=== PATIENT | male | born 1950 | race Caucasian/White ===

== ENCOUNTER 2017-02-25 13:16 | Emergency (ER) | payer OTHER ==
[~2017-02-25] VITALS: Ht 180.3 cm; Wt 62.2 kg
[2017-02-25 13:27] VITALS: TEMP 36.9; Ht 180.3 cm; Wt 62.2 kg
[2017-02-25] MEDS ORDERED: ALBUT/IPRATROP 3MG/0.5MG NEB 3 ML VIAL INH STA (13:58)
[2017-02-25 14:14] LABS: BASO % 0.5 %; BASO ABS # 0.06 K/uL (0-0.2); COMPLETE YES; EOS % 0.1 %; HEMATOCRIT 43.1 % (42-52); IG% 0.2 %; LYMPH % 4.9 %; LYMPH ABS # 0.61 K/uL (1.2-3.4); MEAN CELL VOLUME 88.9 fL (80-100); MEAN CORPUSCULAR HEMOGLOBIN 29.3 pg (25-34); MEAN CORPUSCULAR HGB CONC 32.9 g/dl (32-36); MEAN PLATELET VOLUME 9.2 fL (7.4-10.4); MONO % 5.3 %; PLATELET COUNT 218 K/uL (130-400); RED BLOOD COUNT 4.85 M/uL (4.7-6.1); WHITE BLOOD COUNT 12.57 K/uL (4.8-10.8)
--- NOTE | 2017-02-25 14:30 | DIAGNOSTIC IMAGING REPORT ---
TWO VIEW CHEST CLINICAL HISTORY: Cough and wheezing. Dyspnea. FINDINGS: PA and lateral chest radiographs are compared obtained. No prior studies are available for comparison at the time of dictation. The heart is mildly enlarged and there is atherosclerotic calcification of the thoracic aorta. The pulmonary vasculature is noncongested. Advanced emphysema and interstitial thickening are identified. No airspace consolidation or pleural effusion is seen. An ill-defined nodular density projects over the right apex. Biapical scarring is observed. There is no pneumothorax. The skeletal structures are osteopenic. Degenerative change is present throughout the thoracic spine. IMPRESSION: 1. Cardiomegaly and advanced emphysema. There is no acute cardiopulmonary abnormality. 2. A nodular density projects over the right apex. Although this may represent scar versus artifact, correlation with a chest CT is recommended to exclude underlying pulmonary neoplasm. Electronically signed by: Yaya Kaur M.D. 02/25/2017 2:29 PM Dictated Date/Time: 02/25/2017 2:27 PM
[2017-02-25 14:36] LABS: BUN/CREATININE RATIO 9.9 (10-20); CALCIUM 9.1 mg/dl (8.5-10.1); CREATININE 1.22 mg/dl (0.60-1.40); POTASSIUM 4.3 mmol/L (3.5-5.1)
[2017-02-25] MEDS ORDERED: OPTIRAY 320 IV PRN (15:00)
--- NOTE | 2017-02-25 15:45 | DIAGNOSTIC IMAGING REPORT ---
CHEST CT WITH CONTRAST CT DOSE: 252.80 mGy.cm HISTORY: Acute cough and shortness of breath for 2 days abnormal chest x-ray/evaluate pulmonary nodule. Questioned nodule of the right lung apex TECHNIQUE: Multiaxial CT images of the chest were performed following the intravenous administration of 116 mL Optiray 320. A dose lowering technique was utilized adhering to the principles of ALARA. COMPARISON: Chest radiographs of same day. FINDINGS: No definite thyroid nodule. No pathologic adenopathy of the chest. Calcified stylohyoid hilar lymph nodes compatible with prior granulomatous disease. Coronary arterial disease. Thoracic aorta is normal in both course and caliber without dissection or aneurysm. Moderate mixed plaquing of the thoracic aorta. The opacified pulmonary arterial tree is also unremarkable. Advanced bullous emphysematous disease, most pronounced within the upper lung zone predominant distribution. Pulmonary hyperinflation is also noted with interstitial coarsening. Biapical pleural-parenchymal scarring accounts for the reported abnormality seen on chest radiograph. 5 x 4 mm noncalcified solid nodule is seen within the right lung apex on image 52 of series 4. This may reflect scarring, however is indeterminate. 5 mm groundglass nodule is present within the basal right lower lobe on image 218 of series 4. Mildly spiculated 11 x 6 mm nodule containing central calcifications suggests granuloma with scarring. Mild bronchial wall thickening suggests associated bronchitis. Mild layering secretions noted within the tracheobronchial tree. No acute amount of the imaged upper abdomen. Circumscribed low attenuating lesions of the left hepatic lobe measuring up to 1.2 cm are nonspecific, however suggest cysts. Soft tissues are unremarkable. 20% anterior endplate compression with sclerosis seen within the T7 vertebral body without retropulsion. Bones are mildly demineralized. IMPRESSION: 1. No acute intrathoracic abnormality identified. No lesion identified within the right lung apex to correlate with the radiographic abnormality. 2. Advanced bullous emphysema with an upper lung zone predominant distribution with associated interstitial opacities compatible with areas of scarring. There is also mild background bronchitis. 3. Solid pulmonary nodule of the right upper lobe measures 5 mm. Solitary groundglass nodule of the right lower lobe is also seen as above measuring 5 mm. 4. Evidence of prior granulomatous disease. Centrally calcified 11 mm nodule of the right lower lobe as above suggests calcified granuloma with scarring. Please refer to below summary of Fleischner criteria recommendations for follow-up of incidental CT nodules (H MacMahon, Guidelines for management of small pulmonary nodules detected on CT scans: A statement from the Fleischner Society, Radiology 237: [phone].) SOLID NODULES Solitary nodule size: <6 mm * Low risk patients: no follow-up needed * high risk patients: optional CT at 12 months Solitary nodule size: 6-8 mm * Low risk patients: follow-up at 6-12 months, then consider further follow-up at 18-24 months * high risk patients: initial follow-up CT at 6-12 months and then at 18-24 months if no change Solitary nodule size: >8 mm * either low or high risk patients - consider follow-up CT at 3 months, and/or CT-PET, and/or biopsy Multiple nodules size: <6 mm * Low risk patients: no routine follow-up * high risk patients: optional CT at 12 months Multiple nodules size: 6-8 mm * Low risk patients: follow-up at 3-6 months, then consider further follow-up at 18-24 months * high risk patients: follow-up at 3-6 months, then at 18-24 months if no change Multiple nodules size: >8 mm * Low risk patients: follow-up at 3-6 months, then consider further follow-up at 18-24 months * high risk patients: follow-up at 3-6 months, then at 18-24 months if no change Note: newly detected indeterminate nodule in persons 35 years of age or older. * Low risk patients: minimal or absent history of smoking and/or other known risk factors * high risk patients: history of smoking or of other known risk factors (e.g. first degree relative with lung cancer, or exposure to asbestos, radon, uranium) * if a nodule up to 8 mm is partly solid or is ground glass further follow-up is required after 24 months to exclude possible slow growing adenocarcinoma (EVON) SUBSOLID NODULES Solitary pure ground-glass nodule * nodule size <6 mm - no CT follow-up required * nodule size >=6 mm - follow-up CT at 6-12 months, then every 2 years until 5 years Solitary part-solid nodule * nodule size <6 mm - no CT follow-up required * nodule size >=6 mm - follow-up CT at 3-6 months. If unchanged, and solid component remains <6 mm, then annual follow-up for 5 years Multiple subsolid nodules * nodule size <6 mm - follow-up CT at 3-6 months, consider further follow-up at 2 and 4 years if stable * nodule size >=6 mm - follow-up CT at 3-6 months, subsequent management based on the most suspicious nodule(s) The above report was generated using voice recognition software. It may contain grammatical, syntax or spelling errors. Electronically signed by: Juan Ramon Queen M.D. 02/25/2017 3:43 PM Dictated Date/Time: 02/25/2017 3:34 PM
[2017-02-25] MEDS ORDERED: VNTHFA/IN INH (16:32)
[2017-02-25] MEDS ORDERED: LEVO-366 PO (16:32)
[2017-02-25] MEDS ORDERED: PRED20TA PO (16:32)
--- NOTE | 2017-02-25 16:33 | EMERGENCY ROOM VISIT NOTE ---
History First contact with patient: 13:45 Chief Complaint: RESPIRATORY PROBLEMS Stated Complaint: SHORTNESS OF BREATH Nursing Triage Summary: pt presents to ed via als from home with c/o sob since wednesday. pt states has gotten worse today with a cough. History of Present Illness The patient is a 66 year old male who presents to the Emergency Room via ALS with complaints of cough and feeling short of breath that started on Wednesday. He states is getting progressively worse. He states it feels like he should cough out a lot of phlegm but he is unable to get it out. The patient admits to a lot of postnasal drainage but denies any ear pain or pressure or head congestion. He does admit to some slight sinus pressure today and irritated throat secondary to the cough. The patient denies any chest pain. The patient smokes approximately 5-6 cigarettes per day. He is followed by [facility]. Review of Systems 10 system review was performed and was negative unless stated otherwise history of present illness. Past Medical/Surgical History Ulnar nerve surgery, hernia repair, degenerative disc disease in his lower back Social History Smoking Status: Current Every Day Smoker Current/Historical Medications No Active Prescriptions or Reported Meds Physical Exam Vital Signs Date Time Temp Pulse Resp B/P (MAP) Pulse Ox O2 Delivery O2 Flow Rate FiO2 02/25/17 15:38 84 20 123/74 95 Room Air 02/25/17 14:29 94 20 142/80 98 Room Air 02/25/17 13:34 101 02/25/17 13:30 96 Room Air 02/25/17 13:27 36.9 96 18 149/96 96 Room Air Physical Exam PHYSICAL EXAM: Vital Signs were reviewed: Temperature 36.9, blood pressure 140 and 9/96, pulse 96, respirations 18 Reviewed Nurse's notes and agree. Oxygen saturation is 96 % on room air which is normal . GENERAL: 66-year-old male appears in no acute distress. MENTAL STATUS: Alert, oriented, coherent. EARS: Left canal with cerumen unable to visualize TM. Right TM with good light reflex. No erythema or fluid levels noted.. NOSE: Nasal mucosa with moderate erythema engorgement. PHARYNX: Mild erythema, no edema noted. No exudate noted. Airway is adequate. There is a large amount of thick yellow postnasal drainage noted on the posterior pharynx. NECK: Supple, non-tender. No lymphadenopathy noted. LUNGS: Patient has both expiratory and inspiratory wheezing bilaterally with rhonchi throughout. CARDIAC: Regular rate and rhythm without murmur. SKIN : No rashes noted. LOWER EXTREMITIES: Cyanosis or edema noted. Nontender. Medical Decision & Procedures ER Provider Diagnostic Interpretation: TWO VIEW CHEST CLINICAL HISTORY: Cough and wheezing. Dyspnea. FINDINGS: PA and lateral chest radiographs are compared obtained. No prior studies are available for comparison at the time of dictation. The heart is mildly enlarged and there is atherosclerotic calcification of the thoracic aorta. The pulmonary vasculature is noncongested. Advanced emphysema and interstitial thickening are identified. No airspace consolidation or pleural effusion is seen. An ill-defined nodular density projects over the right apex. Biapical scarring is observed. There is no pneumothorax. The skeletal structures are osteopenic. Degenerative change is present throughout the thoracic spine. IMPRESSION: 1. Cardiomegaly and advanced emphysema. There is no acute cardiopulmonary abnormality. 2. A nodular density projects over the right apex. Although this may represent scar versus artifact, correlation with a chest CT is recommended to exclude underlying pulmonary neoplasm. Electronically signed by: Yaya Kaur M.D. CHEST CT WITH CONTRAST CT DOSE: 252.80 mGy.cm HISTORY: Acute cough and shortness of breath for 2 days abnormal chest x-ray/evaluate pulmonary nodule. Questioned nodule of the right lung apex TECHNIQUE: Multiaxial CT images of the chest were performed following the intravenous administration of 116 mL Optiray 320. A dose lowering technique was utilized adhering to the principles of ALARA. COMPARISON: Chest radiographs of same day. FINDINGS: No definite thyroid nodule. No pathologic adenopathy of the chest. Calcified stylohyoid hilar lymph nodes compatible with prior granulomatous disease. Coronary arterial disease. Thoracic aorta is normal in both course and caliber without dissection or aneurysm. Moderate mixed plaquing of the thoracic aorta. The opacified pulmonary arterial tree is also unremarkable. Advanced bullous emphysematous disease, most pronounced within the upper lung zone predominant distribution. Pulmonary hyperinflation is also noted with interstitial coarsening. Biapical pleural-parenchymal scarring accounts for the reported abnormality seen on chest radiograph. 5 x 4 mm noncalcified solid nodule is seen within the right lung apex on image 52 of series 4. This may reflect scarring, however is indeterminate. 5 mm groundglass nodule is present within the basal right lower lobe on image 218 of series 4. Mildly spiculated 11 x 6 mm nodule containing central calcifications suggests granuloma with scarring. Mild bronchial wall thickening suggests associated bronchitis. Mild layering secretions noted within the tracheobronchial tree. No acute amount of the imaged upper abdomen. Circumscribed low attenuating lesions of the left hepatic lobe measuring up to 1.2 cm are nonspecific, however suggest cysts. Soft tissues are unremarkable. 20% anterior endplate compression with sclerosis seen within the T7 vertebral body without retropulsion. Bones are mildly demineralized. IMPRESSION: 1. No acute intrathoracic abnormality identified. No lesion identified within the right lung apex to correlate with the radiographic abnormality. 2. Advanced bullous emphysema with an upper lung zone predominant distribution with associated interstitial opacities compatible with areas of scarring. There is also mild background bronchitis. 3. Solid pulmonary nodule of the right upper lobe measures 5 mm. Solitary groundglass nodule of the right lower lobe is also seen as above measuring 5 mm. 4. Evidence of prior granulomatous disease. Centrally calcified 11 mm nodule of the right lower lobe as above suggests calcified granuloma with scarring. Please refer to below summary of Fleischner criteria recommendations for follow-up of incidental CT nodules (Rod Bearden, Guidelines for management of small pulmonary nodules detected on CT scans: A statement from the Fleischner Society, Radiology 237: [phone].) SOLID NODULES Solitary nodule size: <6 mm * Low risk patients: no follow-up needed * high risk patients: optional CT at 12 months Solitary nodule size: 6-8 mm * Low risk patients: follow-up at 6-12 months, then consider further follow-up at 18-24 months * high risk patients: initial follow-up CT at 6-12 months and then at 18-24 months if no change Solitary nodule size: >8 mm * either low or high risk patients - consider follow-up CT at 3 months, and/or CT-PET, and/or biopsy Multiple nodules size: <6 mm * Low risk patients: no routine follow-up * high risk patients: optional CT at 12 months Multiple nodules size: 6-8 mm Laboratory Results 02/25/17 14:00 Red Blood Count 4.85, Mean Corpuscular Volume 88.9, Mean Corpuscular Hemoglobin 29.3, Mean Corpuscular Hemoglobin Concent 32.9, Mean Platelet Volume 9.2, Neutrophils (%) (Auto) 89.0, Lymphocytes (%) (Auto) 4.9, Monocytes (%) (Auto) 5.3, Eosinophils (%) (Auto) 0.1, Basophils (%) (Auto) 0.5, Neutrophils # (Auto) 11.20, Lymphocytes # (Auto) 0.61, Monocytes # (Auto) 0.67, Eosinophils # (Auto) 0.01, Basophils # (Auto) 0.06 02/25/17 14:00 Test 02/25/17 14:00 White Blood Count 12.57 K/uL (4.8-10.8) Red Blood Count 4.85 M/uL (4.7-6.1) Hemoglobin 14.2 g/dL (14.0-18.0) Hematocrit 43.1 % (42-52) Mean Corpuscular Volume 88.9 fL (80-100) Mean Corpuscular Hemoglobin 29.3 pg (25-34) Mean Corpuscular Hemoglobin Concent 32.9 g/dl (32-36) Platelet Count 218 K/uL (130-400) Mean Platelet Volume 9.2 fL (7.4-10.4) Neutrophils (%) (Auto) 89.0 % Lymphocytes (%) (Auto) 4.9 % Monocytes (%) (Auto) 5.3 % Eosinophils (%) (Auto) 0.1 % Basophils (%) (Auto) 0.5 % Neutrophils # (Auto) 11.20 K/uL (1.4-6.5) Lymphocytes # (Auto) 0.61 K/uL (1.2-3.4) Monocytes # (Auto) 0.67 K/uL (0.11-0.59) Eosinophils # (Auto) 0.01 K/uL (0-0.5) Basophils # (Auto) 0.06 K/uL (0-0.2) RDW Standard Deviation 48.7 fL (36.4-46.3) RDW Coefficient of Variation 14.9 % (11.5-14.5) Immature Granulocyte % (Auto) 0.2 % Immature Granulocyte # (Auto) 0.02 K/uL (0.00-0.02) Anion Gap 6.0 mmol/L (3-11) Est Creatinine Clear Calc Drug Dose 53.8 ml/min Estimated GFR () 72.2 Estimated GFR (Non- 62.3 BUN/Creatinine Ratio 9.9 (10-20) Calcium Level 9.1 mg/dl (8.5-10.1) Medications Administered Medications (Trade) Dose Ordered Sig/Bryson Route Start Time Stop Time Status Last Admin Dose Admin Albuterol/ Ipratropium (Duoneb) 3 ml NOW STAT INH 02/25/17 13:58 02/25/17 13:59 DC 02/25/17 14:29 3 ML ED Course The patient was evaluated. IV access was obtained. Patient's EMR medication list were reviewed. CBC and differential, renal profile was ordered. Chest x- ray was ordered and interpreted by the radiologist as above with no acute findings but he has advance emphysema and there is a shadow in the right apical and a CT was recommended. A CT of the chest was ordered and interpreted by the radiologist as above with some ground glass appearing nodules as well as scar tissue. There is 1 single 5 mm pulmonary nodule in the right upper lung which is different than what was seen on the x-ray. The patient was informed of all findings.. Labs are reviewed and were unremarkable. The patient's white count was only slightly elevated.. The patient was given a DuoNeb. The patient was feeling better after the DuoNeb. The patient was independently evaluated by Dr. Gregg who agree with treatment plan. The patient was discharged home in stable condition. Medical Decision Differential diagnosis include pneumonia, bronchitis, viral URI, neoplasm [place] Drug Monitoring Program Search Results: patient reviewed within database Medication Reconcilliation Current Medication List: was personally reviewed by wi Blood Pressure Screening Patient's blood pressure: Normal blood pressure Impression Primary Impression: Bronchitis Additional Impression: Emphysema lung Departure Information Dispostion Home / Self-Care Condition GOOD Prescriptions Levofloxacin (Levaquin) 500 Mg Tab 500 MG PO DAILY for 7 Days, #7 TAB Prov: Zari Aden PA-C 02/25/17 Albuterol Hfa (VENTOLIN HFA) 200 Puffs/00925 Mcg Aers 2 PUFFS INH QID for 5 Days, #1 INHALER Prov: Zari Aden PA-C 02/25/17 Prednisone (Prednisone) 20 Mg Tab 0 PO DAILY, #18 TAB 3 DAILY FOR 3 DAYS, THEN 2 DAILY FOR 3 DAYS, THEN 1 DAILY FOR 3 DAYS. Prov: Zari Aden PA-C 02/25/17 Referrals Jessica Duarte C.R.N.P (PCP) Forms HOME CARE DOCUMENTATION FORM, IMPORTANT VISIT INFORMATION, WORK / SCHOOL INSTRUCTIONS Patient Instructions Chest Cold (Bronchitis) - [facility], [facility] Additional Instructions Use inhaler as prescribed 2 puffs every 4 hours for 5 days. Recommend over-the- counter Mucinex as directed on the label for 5 days. Take Levaquin as prescribed. Take prednisone as prescribed. Follow-up with your family doctor on Wednesday for recheck. If symptoms worsen in the interim, return to ER. Problem Qualifiers Additional Impression: Emphysema lung Emphysema type: unspecified Qualified Codes: J43.9 - Emphysema, unspecified
[2017-02-25 16:52] VITALS: BP 139/81; PULSE 84; O2SAT 96
--- NOTE | 2017-03-05 23:18 | EMERGENCY ROOM VISIT NOTE ---
ED Visit Note First contact with patient: 13:45 I have personally evaluated this patient examined her and reviewed the pertinent labs and data. I have discussed the case with Zari Aden, the physician syrup mixer assistant and agree with the plan. Please refer to the PA note. This patient comes in with a persistent cough and wheezing. I saw him after he received nebs and was doing much better. He said he felt good was resting comfortably. His lungs had minimal wheezing. He had no increased work of breathing. He was non-hypoxemic and stable vital signs. Chest x-ray does not show pneumonia. This appears to be a bronchitis with underlying exacerbation of chronic lung issues/COPD. He strongly desires to go home as is his family member think is reasonable will treat him as an outpatient with follow-up with his regular doctor.
== END 2017-02-25 16:54 | disposition home or self-care (01) ==
LOC: EDBD 13:16 → C.EDB 13:17
DX: J40 Bronchitis, not specified as acute or chronic (principal); J43.9 Emphysema, unspecified; F17.200 Nicotine dependence, unspecified, uncomplicated; M51.36 Other intervertebral disc degeneration, lumbar region

== ENCOUNTER 2018-05-28 02:56 | Inpatient (IN) ==
[2018-05-28] MEDS ORDERED: methylPREDNISolone 125 MG/2 ML VIAL IV STA (03:22)
[2018-05-28] MEDS ORDERED: ALBUT/IPRATROP 3MG/0.5MG NEB 3 ML VIAL INH STA (03:22)
[2018-05-28 03:39] LABS: Basophils # (auto) 0.05 K/uL (0-0.2); Basophils % (auto) 0.7 %; Hematocrit (blood only) 45.4 % (42-52); Hemoglobin 15.1 g/dL (14.0-18.0); Immature Granulocytes # (auto) 0.02 K/uL (0.00-0.02); Immature Granulocytes % (auto) 0.3 %; Lymphocytes # (auto) 1.05 K/uL (1.2-3.4); Lymphocytes % (auto) 14.9 %; Mean Corpuscular Hgb Conc 33.3 g/dL (32-36); Mean Corpuscular Volume 89.4 fL (80-100); Mean Platelet Volume 9.7 fL (7.4-10.4); Monocytes # (auto) 0.91 K/uL (0.11-0.59); Monocytes % (auto) 12.9 %; Neutrophils % (auto) 71.2 %; Platelet Count 243 K/uL (130-400); RDW Coefficient of Variation 14.2 % (11.5-14.5); RDW Standard Deviation 46.6 fL (36.4-46.3); Red Blood Count 5.08 M/uL (4.7-6.1); White Blood Count 7.03 K/uL (4.8-10.8)
[2018-05-28 03:48] LABS: BUN Creatinine Ratio 16.5 (10-20); Calcium 8.9 mg/dl (8.5-10.1); Est GFR (African American) 50.1; Est GFR (Non-African American) 43.3; Potassium 4.5 mmol/L (3.5-5.1)
[2018-05-28 03:57] LABS: Albumin Globulin Ratio 1.1 (0.9-2); Bilirubin,Total 0.8 mg/dl (0.2-1); Globulin 3.8 gm/dl (2.5-4.0); Total Protein 7.8 gm/dl (6.4-8.2); Troponin I 0.095 ng/ml (0-0.045)
[2018-05-28 04:22] LABS: INR 1.1 (0.9-1.1); Partial Thromboplastin Ratio 1.1; Partial Thromboplastin Time 28.9 Seconds (21.0-31.0); Prothrombin Time 10.8 Seconds (9.0-12.0)
[2018-05-28] MEDS ORDERED: SODIUM CHLORIDE 0.9% 500 ML IV ONE (04:42)
[2018-05-28] MEDS ORDERED: OPTIRAY 320 125ml IV PRN (05:01)
--- NOTE | 2018-05-28 06:36 | XRay Report ---
XR chest 1V portable HISTORY: 68 years-old Male Dyspnea acute shortness of breath COMPARISON: CTA of the chest of same day TECHNIQUE: Portable AP view of the chest FINDINGS: Cardiomediastinal and hilar silhouettes are within normal limits. Severe emphysema with chronic retic ulation. Bullous emphysematous changes about the lung apices with biapical pleural-parenchymal scarri ng. No pneumothorax, pleural effusion or overt pulmonary edema. Bones of the chest appear grossly int act. IMPRESSION: 1. No acute process. 2. Severe bullous emphysema with biapical pleural-parenchymal scarring. The above report was generated using voice recognition software. It may contain grammatical, syntax o r spelling errors. Electronically signed by: Juan Ramon Queen M.D. 05/28/2018 6:35 AM
--- NOTE | 2018-05-28 07:46 | History & Physical Report ---
Date of Service May 28, 2018 Assessment & Plan (1) COPD (chronic obstructive pulmonary disease): Patient has severe COPD by clinical examination is requiring positive pressure ventilation. Patient be placed on continued BiPAP, Solu-Medrol 40 every 12, duo nebs, formoterol, and azithromycin for for bronchitis. A pulmonary consult will be undertaken given the severity of his disease. Patient has some mild glucose intolerance this morning we will follow this because of his steroid use Flu is negative as well as CTA for PE (2) Elevated troponin: Patient will have his troponins trended this does not appear to be acute coronary syndrome likely supply demand mismatch from his profound hypoxia he will be on a architecture intern aspirin will be given (3) DVT prophylaxis: Enoxaparin subcutaneously (4) Pulmonary nodule: Will be in the pulmonary nodule program for appropriate follow-up History of Present Illness Primary Care Provider: DEBI Henning Patient presents with few days of progressive dyspnea on exertion. He was short of breath just walking across the room in his home. He was so short of breath he could not eat or drink appropriately. He did quit smoking almost a year ago. He said no fevers or chills. He has a nonproductive cough. He presented was markedly hypoxic requiring positive pressure ventilation and attempts at weaning him in the ER not been successful. The patient was given intravenous steroids and inhaled medications but remains profoundly hypoxic with acute respiratory failure Allergies Allergy/AdvReac Type Severity Reaction Status Date / Time Penicillins Allergy Unknown Verified 02/25/17 13:52 Home Medications Home Medications Medication Instructions Recorded Confirmed Type albuterol sulfate [Ventolin HFA] 2 puff INHALATION Q4 PRN 05/28/18 05/28/18 History Past Med/Surg History Medical History Bronchitis COPD (chronic obstructive pulmonary disease) History of tobacco abuse Pulmonary nodule Family History Unknown Hypertension Other Family history non-contributory Social History Current Living Situation: Alone Other Information That Helps Us Care for You: No Feels Safe at Home: Yes Safety Concerns: Feels Safe At This Time Smoking Status: Former smoker Hx Alcohol Use: No Hx Substance Use: No Beliefs That Will Affect Care: None Communication Ability: Effective Review of Systems ROS: Patient has been having some weight loss and been fatigued No double vision blurry vision No problems with speech or swallowing No palpitations, chest pain or pressure Severe shortness of breath and air hunger No abdominal pain nausea vomiting diarrhea patient gained weight after stopping smoking and has recently lost weight disease been able to eat is been too short of breath No burning urine urine frequency or changes in color No focal joint pain or muscle pain No skin rashes or oral lesions No unusual bruising or bleeding No focused back pain or numbness or loss of strength No changes in memory or confusion Physical Exam 2 Vital Signs (Past 24 Hours): Last Vital Signs Temp 36.6 C 05/28/18 02:56 Pulse 99 H 05/28/18 06:21 Resp 28 H 05/28/18 06:21 BP 165/98 H 05/28/18 06:21 Pulse Ox 98 05/28/18 06:21 The patient appeared thin chronically ill and in moderate respiratory distress Vital signs as documented. He is tachypneic hypertensive and tachycardic as well as hypoxic Head exam is unremarkable. normocephalic, atraumatic Neck is with jugular venous distension, thyromegaly, or lymphademopathy Lungs are with diminished breath sounds in all lung chow Cardiac exam reveals Rhythm is regular. Tachycardic, first and second heart sounds normal. Abdominal exam reveals normal bowel sounds, no masses, no organomegaly Extremities are nonedematous and both pedal pulses are present Neurologic exam is A&Ox3, no focal deficits, strength is equal bilateral Psychologically seems anxious regarding his shortness of breath Skin is warm Dry without bruises or lesions Results & Data Diagnostic Findings CT angiogram does not show any pulmonary embolism shows persistent pulmonary nodule that was noted previously severe COPD Chest x-ray does not show infiltrates shows severe COPD
--- NOTE | 2018-05-28 08:16 | CT Scan Report ---
CT angio chest PE protocol CT DOSE: 296.04 mGy.cm HISTORY: 68 years-old Male with eval for PE. Acute shortness of breath TECHNIQUE: Multiple CTA images of the chest were obtained after the intravenous administration of 120 ml Optiray 320. Coronal and sagittal MIPS were obtained from the axial data set and were submitted for review. All measurements were obtained according to NASCET criteria. A dose lowering technique w as utilized adhering to the principles of ALARA. COMPARISON: CT of the chest 02/28/2018 FINDINGS: CTA: Three-vessel distribution of coronary arterial calcifications are noted. There is mild left ventricul ar dilation with myocardial hypertrophy of the left ventricle. Moderate mixed plaque relation of the thoracic aorta without aneurysm or dissection. Reflux of contrast into the IVC and hepatic veins. The pulmonary arterial tree is opacified to level the segmental branches and demonstrates no focal filli ng defects to suggest pulmonary thromboembolic disease. CT CHEST: No dominant thyroid nodule identified. Calcified mediastinal and hilar lymph nodes compatible with pr ior granulomatous disease. No pneumothorax or pleural effusion. Advanced bullous upper lung zone predominant centrilobular emphy sema with areas of chronic interstitial scarring. Unchanged 5 mm solid nodule of the right upper lobe , image 302 series 4. Biapical pleural-parenchymal scarring. No new or enlarging pulmonary nodules id entified. Calcified granuloma with adjacent scarring is again seen within the right lower lobe. Bilat eral bronchial wall thickening compatible with bronchitis. Calcified granulomata about the spleen. 5 mm hypodense lesion of the left hepatic lobe. No acute proc ess of the imaged upper abdomen. Soft tissues are within normal limits. Bones appear intact. IMPRESSION: 1. No acute intrathoracic abnormality identified, specifically no acute aortic pathology or evidence of pulmonary thromboembolic disease. 2. Advanced bullous emphysema with bronchitis. 3. Prior granulomatous disease. 4. Unchanged 5 mm solid nodule of the right upper lobe. The above report was generated using voice recognition software. It may contain grammatical, syntax o r spelling errors. Electronically signed by: Juan Ramon Queen M.D. 05/28/2018 8:14 AM
--- NOTE | 2018-05-28 08:29 | Emergency Department Note ---
Entered by Harjeet Alexandra acting as a scribe for History of Present Illness General Chief complaint: Shortness of Breath/Dyspnea Time Seen by Provider: 05/28/18 03:04 Source: patient Mode of arrival: EMS Limitations: no limitations History of Present Illness Onset (ago): day(s) 4 Location: chest Pain Consistency: + constant Maximum Pain Intensity: 3 Relieved By: + other (sitting) Associated symptoms: + other (sore throat); no chest pain The patient is a 68 year old male who presents to the Emergency Room with complaints of constant SOB starting 4 days ago. The patient states he developed a cough last week. He states yesterday evening he got really bad SOB with a cough. He notes he started to get white phlegm from his cough a couple of days ago. He states he has a history of emphysema. The patient states he has a nonproductive cough. He notes he has a sore throat. He notes he does not know if he had a fever or not but states he felt warm. He he is more comfortable sitting. He denies heart problems, chest pain, and a history of pneumonia. The patient states he had bronchitis before. The patient states he quit smoking in December 2016 and he lives alone. Home Medications Home Medications Medication Instructions Recorded Confirmed Type albuterol sulfate [Ventolin HFA] 2 puff INHALATION Q4 PRN 05/28/18 05/28/18 History Allergies Allergy/AdvReac Type Severity Reaction Status Date / Time Penicillins Allergy Unknown Verified 02/25/17 13:52 Past Med/Surg History Medical History Bronchitis COPD (chronic obstructive pulmonary disease) History of tobacco abuse Pulmonary nodule Family History Unknown Hypertension Other Family history non-contributory Social History Current Living Situation: Alone Other Information That Helps Us Care for You: No Feels Safe at Home: Yes Safety Concerns: Feels Safe At This Time Smoking Status: Former smoker Hx Alcohol Use: No Hx Substance Use: No Beliefs That Will Affect Care: None Preferred Language: Arabic Communication Ability: Effective Review of Systems See HPI for pertinent positives & negatives. and A total of 10 systems reviewed and were otherwise negative Physical Exam Vital Signs Vital Signs - 24 hr 05/28/18 02:47 05/28/18 02:56 05/28/18 03:00 Temperature 36.6 C Temperature Source Oral Sepsis Recent Fever Within 48 Hours No Sepsis New/Unexplained Change in Mental Status No Sepsis Action Taken by Nursing No Action Required Pulse Rate 114 H Pulse Rate [Apical] 116 H Pulse Rate [Brachial] Pulse Rate [Left Finger] Pulse Rhythm [Apical] Pulse Strength [Apical] Respiratory Rate 32 H 26 H Respiratory Effort / Characteristics Short of Breath Tripoding Accessory Muscle Use Labored Respiratory Depth Respiratory Pattern Blood Pressure 165/113 H Blood Pressure [Left Arm] Blood Pressure [Right Arm] 165/113 H Blood Pressure Mean 130 Blood Pressure Mean [Left Arm] Blood Pressure Mean [Right Arm] 130 Pulse Oximetry 97 98 Oxygen Delivery Method BiPAP BiPAP BiPAP Oxygen Flow Rate Fraction of Inspired Oxygen 35 35 SaO2/FiO2 Ratio 280 05/28/18 03:02 05/28/18 03:07 05/28/18 03:10 Temperature Temperature Source Sepsis Recent Fever Within 48 Hours Sepsis New/Unexplained Change in Mental Status Sepsis Action Taken by Nursing Pulse Rate 117 H 119 H Pulse Rate [Apical] Pulse Rate [Brachial] Pulse Rate [Left Finger] Pulse Rhythm [Apical] Pulse Strength [Apical] Respiratory Rate 21 19 Respiratory Effort / Characteristics Respiratory Depth Respiratory Pattern Blood Pressure 165/113 H Blood Pressure [Left Arm] Blood Pressure [Right Arm] Blood Pressure Mean 130 Blood Pressure Mean [Left Arm] Blood Pressure Mean [Right Arm] Pulse Oximetry 98 97 97 Oxygen Delivery Method Oxygen Flow Rate Fraction of Inspired Oxygen SaO2/FiO2 Ratio 05/28/18 03:12 05/28/18 03:20 05/28/18 03:25 Temperature Temperature Source Sepsis Recent Fever Within 48 Hours Sepsis New/Unexplained Change in Mental Status Sepsis Action Taken by Nursing Pulse Rate 116 H Pulse Rate [Apical] 112 H Pulse Rate [Brachial] Pulse Rate [Left Finger] Pulse Rhythm [Apical] Pulse Strength [Apical] Respiratory Rate 28 H 28 H Respiratory Effort / Characteristics Short of Breath Tripoding Respiratory Depth Respiratory Pattern Blood Pressure Blood Pressure [Left Arm] Blood Pressure [Right Arm] Blood Pressure Mean Blood Pressure Mean [Left Arm] Blood Pressure Mean [Right Arm] Pulse Oximetry 97 98 97 Oxygen Delivery Method BiPAP Oxygen Flow Rate Fraction of Inspired Oxygen 35 35 SaO2/FiO2 Ratio 05/28/18 03:30 05/28/18 03:40 05/28/18 03:50 Temperature Temperature Source Sepsis Recent Fever Within 48 Hours Sepsis New/Unexplained Change in Mental Status Sepsis Action Taken by Nursing Pulse Rate Pulse Rate [Apical] Pulse Rate [Brachial] Pulse Rate [Left Finger] Pulse Rhythm [Apical] Pulse Strength [Apical] Respiratory Rate Respiratory Effort / Characteristics Respiratory Depth Respiratory Pattern Blood Pressure Blood Pressure [Left Arm] Blood Pressure [Right Arm] Blood Pressure Mean Blood Pressure Mean [Left Arm] Blood Pressure Mean [Right Arm] Pulse Oximetry 98 99 98 Oxygen Delivery Method Oxygen Flow Rate Fraction of Inspired Oxygen SaO2/FiO2 Ratio 05/28/18 04:00 05/28/18 04:10 05/28/18 04:20 Temperature Temperature Source Sepsis Recent Fever Within 48 Hours Sepsis New/Unexplained Change in Mental Status Sepsis Action Taken by Nursing Pulse Rate 117 H 113 H Pulse Rate [Apical] Pulse Rate [Brachial] Pulse Rate [Left Finger] Pulse Rhythm [Apical] Pulse Strength [Apical] Respiratory Rate 12 14 Respiratory Effort / Characteristics Respiratory Depth Respiratory Pattern Blood Pressure Blood Pressure [Left Arm] Blood Pressure [Right Arm] Blood Pressure Mean Blood Pressure Mean [Left Arm] Blood Pressure Mean [Right Arm] Pulse Oximetry 99 98 97 Oxygen Delivery Method Oxygen Flow Rate Fraction of Inspired Oxygen SaO2/FiO2 Ratio 05/28/18 04:30 05/28/18 04:40 05/28/18 04:50 Temperature Temperature Source Sepsis Recent Fever Within 48 Hours Sepsis New/Unexplained Change in Mental Status Sepsis Action Taken by Nursing Pulse Rate 112 H 113 H 113 H Pulse Rate [Apical] Pulse Rate [Brachial] Pulse Rate [Left Finger] Pulse Rhythm [Apical] Pulse Strength [Apical] Respiratory Rate 17 18 21 Respiratory Effort / Characteristics Respiratory Depth Respiratory Pattern Blood Pressure Blood Pressure [Left Arm] Blood Pressure [Right Arm] Blood Pressure Mean Blood Pressure Mean [Left Arm] Blood Pressure Mean [Right Arm] Pulse Oximetry 97 97 96 Oxygen Delivery Method Oxygen Flow Rate Fraction of Inspired Oxygen SaO2/FiO2 Ratio 05/28/18 05:00 05/28/18 05:10 05/28/18 05:42 Temperature Temperature Source Sepsis Recent Fever Within 48 Hours Sepsis New/Unexplained Change in Mental Status Sepsis Action Taken by Nursing Pulse Rate 114 H 111 H 108 H Pulse Rate [Apical] Pulse Rate [Brachial] Pulse Rate [Left Finger] Pulse Rhythm [Apical] Pulse Strength [Apical] Respiratory Rate 15 22 22 Respiratory Effort / Characteristics Respiratory Depth Respiratory Pattern Blood Pressure Blood Pressure [Left Arm] Blood Pressure [Right Arm] Blood Pressure Mean Blood Pressure Mean [Left Arm] Blood Pressure Mean [Right Arm] Pulse Oximetry 97 98 Oxygen Delivery Method Oxygen Flow Rate Fraction of Inspired Oxygen SaO2/FiO2 Ratio 05/28/18 05:50 05/28/18 06:00 05/28/18 06:10 Temperature Temperature Source Sepsis Recent Fever Within 48 Hours Sepsis New/Unexplained Change in Mental Status Sepsis Action Taken by Nursing Pulse Rate 101 H 103 H 104 H Pulse Rate [Apical] Pulse Rate [Brachial] Pulse Rate [Left Finger] Pulse Rhythm [Apical] Pulse Strength [Apical] Respiratory Rate 19 28 H 21 Respiratory Effort / Characteristics Respiratory Depth Respiratory Pattern Blood Pressure Blood Pressure [Left Arm] Blood Pressure [Right Arm] Blood Pressure Mean Blood Pressure Mean [Left Arm] Blood Pressure Mean [Right Arm] Pulse Oximetry Oxygen Delivery Method Oxygen Flow Rate Fraction of Inspired Oxygen SaO2/FiO2 Ratio 05/28/18 06:20 05/28/18 06:21 05/28/18 06:23 Temperature Temperature Source Sepsis Recent Fever Within 48 Hours Sepsis New/Unexplained Change in Mental Status Sepsis Action Taken by Nursing Pulse Rate 100 H 101 H Pulse Rate [Apical] 99 H Pulse Rate [Brachial] Pulse Rate [Left Finger] Pulse Rhythm [Apical] Regular Pulse Strength [Apical] Normal Respiratory Rate 22 28 H 25 H Respiratory Effort / Characteristics Respiratory Depth Respiratory Pattern Blood Pressure 165/98 H Blood Pressure [Left Arm] Blood Pressure [Right Arm] 165/98 H Blood Pressure Mean 120 Blood Pressure Mean [Left Arm] Blood Pressure Mean [Right Arm] 120 Pulse Oximetry 98 99 Oxygen Delivery Method BiPAP Oxygen Flow Rate Fraction of Inspired Oxygen 35 SaO2/FiO2 Ratio 280 05/28/18 06:30 05/28/18 06:40 05/28/18 06:50 Temperature Temperature Source Sepsis Recent Fever Within 48 Hours Sepsis New/Unexplained Change in Mental Status Sepsis Action Taken by Nursing Pulse Rate 102 H 102 H 109 H Pulse Rate [Apical] Pulse Rate [Brachial] Pulse Rate [Left Finger] Pulse Rhythm [Apical] Pulse Strength [Apical] Respiratory Rate 20 16 22 Respiratory Effort / Characteristics Respiratory Depth Respiratory Pattern Blood Pressure Blood Pressure [Left Arm] Blood Pressure [Right Arm] Blood Pressure Mean Blood Pressure Mean [Left Arm] Blood Pressure Mean [Right Arm] Pulse Oximetry 99 99 99 Oxygen Delivery Method Oxygen Flow Rate Fraction of Inspired Oxygen SaO2/FiO2 Ratio 05/28/18 07:00 05/28/18 07:10 05/28/18 07:13 Temperature Temperature Source Sepsis Recent Fever Within 48 Hours Sepsis New/Unexplained Change in Mental Status Sepsis Action Taken by Nursing Pulse Rate 106 H 108 H 103 H Pulse Rate [Apical] Pulse Rate [Brachial] Pulse Rate [Left Finger] Pulse Rhythm [Apical] Pulse Strength [Apical] Respiratory Rate 19 19 29 H Respiratory Effort / Characteristics Respiratory Depth Respiratory Pattern Blood Pressure 170/98 H Blood Pressure [Left Arm] Blood Pressure [Right Arm] Blood Pressure Mean 122 Blood Pressure Mean [Left Arm] Blood Pressure Mean [Right Arm] Pulse Oximetry 99 95 99 Oxygen Delivery Method Oxygen Flow Rate Fraction of Inspired Oxygen SaO2/FiO2 Ratio 05/28/18 07:20 05/28/18 07:30 05/28/18 07:31 Temperature Temperature Source Sepsis Recent Fever Within 48 Hours Sepsis New/Unexplained Change in Mental Status Sepsis Action Taken by Nursing Pulse Rate 100 H 105 H 108 H Pulse Rate [Apical] Pulse Rate [Brachial] Pulse Rate [Left Finger] Pulse Rhythm [Apical] Pulse Strength [Apical] Respiratory Rate 22 19 16 Respiratory Effort / Characteristics Respiratory Depth Respiratory Pattern Blood Pressure 176/97 H Blood Pressure [Left Arm] Blood Pressure [Right Arm] Blood Pressure Mean 123 Blood Pressure Mean [Left Arm] Blood Pressure Mean [Right Arm] Pulse Oximetry 98 98 99 Oxygen Delivery Method Oxygen Flow Rate Fraction of Inspired Oxygen SaO2/FiO2 Ratio 05/28/18 07:40 05/28/18 07:47 05/28/18 07:50 Temperature Temperature Source Sepsis Recent Fever Within 48 Hours Sepsis New/Unexplained Change in Mental Status Sepsis Action Taken by Nursing Pulse Rate 104 H 102 H Pulse Rate [Apical] Pulse Rate [Brachial] Pulse Rate [Left Finger] Pulse Rhythm [Apical] Pulse Strength [Apical] Respiratory Rate 18 28 H Respiratory Effort / Characteristics Accessory Muscle Use Short of Breath Respiratory Depth Shallow Respiratory Pattern Tachypnea Blood Pressure Blood Pressure [Left Arm] Blood Pressure [Right Arm] Blood Pressure Mean Blood Pressure Mean [Left Arm] Blood Pressure Mean [Right Arm] Pulse Oximetry 99 98 Oxygen Delivery Method BiPAP Oxygen Flow Rate Fraction of Inspired Oxygen 35 SaO2/FiO2 Ratio 05/28/18 08:00 05/28/18 08:01 05/28/18 08:10 Temperature Temperature Source Sepsis Recent Fever Within 48 Hours Sepsis New/Unexplained Change in Mental Status Sepsis Action Taken by Nursing Pulse Rate 102 H 104 H 101 H Pulse Rate [Apical] Pulse Rate [Brachial] Pulse Rate [Left Finger] Pulse Rhythm [Apical] Pulse Strength [Apical] Respiratory Rate 27 H 18 20 Respiratory Effort / Characteristics Respiratory Depth Respiratory Pattern Blood Pressure 127/113 H Blood Pressure [Left Arm] Blood Pressure [Right Arm] Blood Pressure Mean 117 Blood Pressure Mean [Left Arm] Blood Pressure Mean [Right Arm] Pulse Oximetry 99 98 100 Oxygen Delivery Method Oxygen Flow Rate Fraction of Inspired Oxygen SaO2/FiO2 Ratio 05/28/18 08:30 05/28/18 08:52 05/28/18 11:07 Temperature Temperature Source Sepsis Recent Fever Within 48 Hours Sepsis New/Unexplained Change in Mental Status Sepsis Action Taken by Nursing Pulse Rate 103 H 102 H Pulse Rate [Apical] 98 H Pulse Rate [Brachial] Pulse Rate [Left Finger] Pulse Rhythm [Apical] Pulse Strength [Apical] Respiratory Rate 20 24 16 Respiratory Effort / Characteristics Labored Short of Breath Spontaneous Respiratory Depth Normal Respiratory Pattern Blood Pressure 157/99 H Blood Pressure [Left Arm] Blood Pressure [Right Arm] Blood Pressure Mean Blood Pressure Mean [Left Arm] Blood Pressure Mean [Right Arm] Pulse Oximetry 99 98 98 Oxygen Delivery Method BiPAP Nasal Cannula Oxygen Flow Rate 5 Fraction of Inspired Oxygen 35 30 SaO2/FiO2 Ratio 05/28/18 11:47 05/28/18 15:06 05/28/18 15:22 Temperature 36.7 C 36.9 C Temperature Source Oral Oral Sepsis Recent Fever Within 48 Hours Sepsis New/Unexplained Change in Mental Status Sepsis Action Taken by Nursing Pulse Rate Pulse Rate [Apical] 94 H Pulse Rate [Brachial] 96 H Pulse Rate [Left Finger] 98 H Pulse Rhythm [Apical] Pulse Strength [Apical] Respiratory Rate 20 16 18 Respiratory Effort / Characteristics Non-Labored Spontaneous Respiratory Depth Respiratory Pattern Blood Pressure Blood Pressure [Left Arm] 188/98 H 153/92 H Blood Pressure [Right Arm] Blood Pressure Mean Blood Pressure Mean [Left Arm] 128 112 Blood Pressure Mean [Right Arm] Pulse Oximetry 95 96 98 Oxygen Delivery Method Nasal Cannula Nasal Cannula Oxygen Flow Rate 2 4 4 Fraction of Inspired Oxygen SaO2/FiO2 Ratio 05/28/18 17:36 Temperature Temperature Source Sepsis Recent Fever Within 48 Hours Sepsis New/Unexplained Change in Mental Status Sepsis Action Taken by Nursing Pulse Rate Pulse Rate [Apical] Pulse Rate [Brachial] Pulse Rate [Left Finger] 103 H Pulse Rhythm [Apical] Pulse Strength [Apical] Respiratory Rate 22 Respiratory Effort / Characteristics Spontaneous Short of Breath Respiratory Depth Respiratory Pattern Blood Pressure Blood Pressure [Left Arm] Blood Pressure [Right Arm] Blood Pressure Mean Blood Pressure Mean [Left Arm] Blood Pressure Mean [Right Arm] Pulse Oximetry 96 Oxygen Delivery Method Nasal Cannula Oxygen Flow Rate 3 Fraction of Inspired Oxygen SaO2/FiO2 Ratio HEENT: Head - normocephalic and atraumatic Pupils are equal, round, and reactive to light. Extraocular eye muscles are intact, and sclera are anicteric. Nose - moist nasal mucosa without discharge. Mouth - moist buccal mucosa. Oropharynx is nonerythematous and there is no tonsillar exudate or edema noted. Neck: Supple; no JVD, nuchal rigidity, cervical lymphadenopathy. Heart: Regular rate and rhythm. There is a normal S1 and S2 with no murmurs, clicks, or gallops appreciated. Lungs: Appears to be in moderate respiratory distress. Minimal air exchange in both lungs with expiratory wheezing. Abdomen: Soft, completely nontender, nondistended, with good bowel sounds. There are no palpable pulsatile masses or hepatosplenomegaly. There is no guarding, rigidity, or rebound noted. Extremities: No evidence of cyanosis, clubbing, or edema. There are easily palpable peripheral pulses. Skin: warm and dry with good turgor and no rashes. Course 0315: Past medical records reviewed. The patient was evaluated in room C5, and a complete history and physical examination were performed. The patient was transferred from [facility] to [facility]. 0323: Duoneb 12 ml INH ONE STA, Solumedrol 125 mg IV NOW STA. A 12-lead EKG was obtained as well as a chest x-ray. The patient was observed on the personnel monitor and pulse oximeter. 0445: The nursing staff took the patient off of C-Pap and are trying to use OxyMask. 0502: He went for CT scan of the chest to rule out PE. 0512: Sodium Chloride 500 ml @ 999 mls/hr IV 0607: I reviewed the patient's case with Dr. Smith - [facility] he will evaluate the patient for further management. 0658: I reevaluated the patient. The patient going to try nasal prongs. Administered Medications Albuterol (Duoneb) 3 ml INH QIDR [facility] Stop: 06/27/18 09:27 Last Admin: 05/28/18 17:35 Dose: 3 ml Admin: 05/28/18 15:22 Dose: 3 ml Admin: 05/28/18 11:05 Dose: 3 ml Admin: 05/28/18 11:05 Dose: Not Given Aspirin (Ecotrin) 325 mg PO QAM REPLACED BY [facility] Stop: 06/27/18 08:59 Last Admin: 05/28/18 11:35 Dose: 325 mg Azithromycin (Zithromax) 500 mg PO QAM REPLACED BY [facility] Stop: 06/04/18 09:27 Last Admin: 05/28/18 11:34 Dose: 500 mg Enoxaparin Sodium (Lovenox) 40 mg SQ Q24H [facility] Stop: 06/27/18 10:59 Last Admin: 05/28/18 11:35 Dose: Not Given Formoterol Fumarate (Perforomist) 20 mcg INH BIDR [facility] Stop: 06/27/18 09:27 Last Admin: 05/28/18 11:05 Dose: Not Given Methylprednisolone 40 mg/ (Syringe) 0.64 mls @ 1.5 mls/min IV Q12H [facility] Stop: 06/27/18 15:59 Last Admin: 05/28/18 16:03 Dose: 1.5 mls/min Discontinued Medications Albuterol (Duoneb) 12 ml INH ONE STA Stop: 05/28/18 03:23 Last Admin: 05/28/18 03:25 Dose: 12 ml Sodium Chloride (Nss) 500 mls @ 999 mls/hr IV .Q31M ONE Stop: 05/28/18 05:12 Last Infusion: 05/28/18 05:53 Dose: 0 mls/hr Admin: 05/28/18 05:14 Dose: 999 mls/hr Ioversol (Optiray 320 125ml) 120 ml IV ONCE PRN PRN Reason: Interaction Checking Stop: 06/01/18 05:00 Last Admin: 05/28/18 05:02 Dose: 1 ml Methylprednisolone (Solumedrol) 125 mg IV NOW STA Stop: 05/28/18 03:23 Last Admin: 05/28/18 03:35 Dose: 125 mg Medical Decision Making Differential Diagnosis The patient is a 68 year old male who presents to the Emergency Room with complaints of constant SOB starting 4 days ago. Differential Diagnosis includes: exacerbation of emphysema, pneumonia, bronchitis, CHF, and PE. Medical Records Attestation: I reviewed the patient's medical records. Home Medications Current Medication List: was personally reviewed by me Laboratory Data Attestation: I reviewed the patient's lab results. Result diagrams: 05/28/18 02:34 05/28/18 02:34 Lab Results 05/28/18 05/28/18 05/28/18 Range/Units 02:34 02:34 04:00 WBC 7.03 (4.8-10.8) K/uL RBC 5.08 (4.7-6.1) M/uL Hgb 15.1 (14.0-18.0) g/dL Hct 45.4 (42-52) % MCV 89.4 (80-100) fL MCH 29.7 (25-34) pg MCHC 33.3 (32-36) g/dL RDW Std Deviation 46.6 H (36.4-46.3) fL RDW Coeff of Blayne 14.2 (11.5-14.5) % Plt Count 243 (130-400) K/uL MPV 9.7 (7.4-10.4) fL Immature Gran % (Auto) 0.3 % Neut % (Auto) 71.2 % Lymph % (Auto) 14.9 % Gallia % (Auto) 12.9 % Eos % (Auto) 0.0 % Baso % (Auto) 0.7 % Immature Gran # (Auto) 0.02 (0.00-0.02) K/uL Neut # (Auto) 5.00 (1.4-6.5) K/uL Lymph # (Auto) 1.05 L (1.2-3.4) K/uL Gall[place] # (Auto) 0.91 H (0.11-0.59) K/uL Eos # (Auto) 0.00 (0-0.5) K/uL Baso # (Auto) 0.05 (0-0.2) K/uL PT 10.8 (9.0-12.0) Seconds INR 1.1 (0.9-1.1) APTT 28.9 (21.0-31.0) Seconds PTT Ratio 1.1 D-Dimer 2230 H* (0-500) ug/L FEU Sodium 132 L (136-145) mmol/L Potassium 4.5 (3.5-5.1) mmol/L Chloride 98 (98-107) mmol/L Carbon Dioxide 22 (21-32) mmol/L Anion Gap 12.0 H (3-11) BUN 27 H (7-18) mg/dl Creatinine 1.63 H (0.6-1.4) mg/dl Est Cr Clr Drug Dosing 38.0 ml/min Est GFR ( Amer) 50.1 Est GFR (Non-Af Amer) 43.3 BUN/Creatinine Ratio 16.5 (10-20) Glucose 127 H (70-99) mg/dl Calcium 8.9 (8.5-10.1) mg/dl Total Bilirubin 0.8 (0.2-1) mg/dl AST 43 H (15-37) U/L ALT 24 (12-78) U/L Alkaline Phosphatase 80 (45-117) U/L Troponin I 0.095 H* (0-0.045) ng/ml Total Protein 7.8 (6.4-8.2) gm/dl Albumin 4.0 (3.4-5.0) gm/dl Globulin 3.8 (2.5-4.0) gm/dl Albumin/Globulin Ratio 1.1 (0.9-2) Influenza Type A Ag (Neg) Influenza Type B Ag (Neg) 05/28/18 05/28/18 Range/Units 04:33 13:51 WBC (4.8-10.8) K/uL RBC (4.7-6.1) M/uL Hgb (14.0-18.0) g/dL Hct (42-52) % MCV (80-100) fL MCH (25-34) pg MCHC (32-36) g/dL RDW Std Deviation (36.4-46.3) fL RDW Coeff of Blayne (11.5-14.5) % Plt Count (130-400) K/uL MPV (7.4-10.4) fL Immature Gran % (Auto) % Neut % (Auto) % Lymph % (Auto) % Gall[place] % (Auto) % Eos % (Auto) % Baso % (Auto) % Immature Gran # (Auto) (0.00-0.02) K/uL Neut # (Auto) (1.4-6.5) K/uL Lymph # (Auto) (1.2-3.4) K/uL Gall[place] # (Auto) (0.11-0.59) K/uL Eos # (Auto) (0-0.5) K/uL Baso # (Auto) (0-0.2) K/uL PT (9.0-12.0) Seconds INR (0.9-1.1) APTT (21.0-31.0) Seconds PTT Ratio D-Dimer (0-500) ug/L FEU Sodium (136-145) mmol/L Potassium (3.5-5.1) mmol/L Chloride (98-107) mmol/L Carbon Dioxide (21-32) mmol/L Anion Gap (3-11) BUN (7-18) mg/dl Creatinine (0.6-1.4) mg/dl Est Cr Clr Drug Dosing ml/min Est GFR ( Amer) Est GFR (Non-Af Amer) BUN/Creatinine Ratio (10-20) Glucose (70-99) mg/dl Calcium (8.5-10.1) mg/dl Total Bilirubin (0.2-1) mg/dl AST (15-37) U/L ALT (12-78) U/L Alkaline Phosphatase (45-117) U/L Troponin I 0.197 H* (0-0.045) ng/ml Total Protein (6.4-8.2) gm/dl Albumin (3.4-5.0) gm/dl Globulin (2.5-4.0) gm/dl Albumin/Globulin Ratio (0.9-2) Influenza Type A Ag Neg for Influ A (Neg) Influenza Type B Ag Neg for Influ B (Neg) Imaging Data Attestation: I personally reviewed and interpreted this imaging study as follows : My Impression: Portable Chest X-Ray 1 view: Emphysematous changes with a fullness in the right hilum. No obvious pulmonary edema. Radiologist's Impression: Radiology results as stated below per my review and the radiologist's interpretation: CTA CHEST: Comparison: CT dated No evidence of pulmonary embolism or other acute chest abnormality. Atherosclerotic vascular disease. No thoracic aortic aneurysm or dissection. Cardiomegaly with left ventricular enlargement, stable. No pericardial effusion. Stable advanced emphysematous changes in the lungs and right upper lobe 5 mm pulmonary nodule. Incidental findings: Stable osseous structures. Stable small calcified mediastinal and right hilar lymph nodes. Radiologist: Naomi Kearney MD Study ready at 05:55 and inital results transmitted at 06:00 ECG Data Attestation: I personally reviewed and interpreted this ECG as follows: Indication: SOB/dyspnea Rate (beats per minute): 115 Rhythm: sinus tachycardia Findings: + other (LVH) Comparison ECG Date: from (02/25/17) Change: no significant change Blood Pressure Blood Pressure Findings: Elevated blood pressure Blood Pressure Disposition: further management by hospitalist [facility] Narrative The patient is a 68 year old male who presents to the Emergency Room with complaints of constant SOB starting 4 days ago. Patient has a long-standing history of smoking. He recently quit smoking approximately 6 months ago. Over the past 4 days, the patient has become increasingly short of breath. He has had difficulty catching his breath. Oxygen saturations for EMS or quite low upon their arrival. Without the supplemental oxygen or BiPAP here in the emergency department, the patient is also hypoxic. Initial chest x-ray shows evidence of a right hilar fullness. The patient went for CT scan of the chest as described above. He remains hemodynamically stable as long as he is on supplemental oxygen. The patient will be evaluated by the [facility] Hospitalist group for further evaluation. Impression & Plan Hypoxia Critical Care Time I have personally spent greater than 50 minutes of critical care time in the direct management of this patient with significant hypoxia. This includes bedside care, interpretation of diagnostic studies, and testing, discussion with consultants, patient, and family members, and other required patient management activities. This 50 minutes is in excess of all separately billable procedures. Critical Care Time: Yes Total Critical Care Time: 50 Discharge Plan Visit Data *Final* Discharge Date/Time: 05/28/18 08:30 Chief Complaint: Shortness of Breath/Dyspnea ED Provider: Anastasiia Guevara Discharge Problem: Hypoxia Patient Disposition: Admitted As Inpatient Discharge Instructions Interventions: ED Discharge Assessment Last Done: 05/28/18 08:30 The scribe's documentation has been prepared under my direction and personally reviewed by me in its entirety. I confirm that the note above accurately reflects all work, treatment, procedures, and medical decision making performed by me.
[2018-05-28] MEDS ORDERED: ONDANSETRON INJ 2 MG/ML 2 ML VIAL IV PRN (09:28)
[2018-05-28] MEDS ORDERED: ACETAMINOPHEN 325 MG TAB PO PRN (09:28)
[2018-05-28] MEDS: FORMOTEROL 20 MCG/2 ML VIAL INH SCH ×2 (11:05→19:29)
[2018-05-28] MEDS: ALBUT/IPRATROP 3MG/0.5MG NEB 3 ML VIAL INH SCH ×5 (11:05→19:24)
[2018-05-28] MEDS: AZITHROMYCIN 250 MG TAB PO SCH (11:34)
[2018-05-28] MEDS: ENOXAPARIN INJ 40 MG/0.4 ML SYR SQ SCH (11:35)
[2018-05-28] MEDS: ASPIRIN 325 MG ECTAB PO SCH (11:35)
[2018-05-28] MEDS: methylPREDNISolone 40 MG in SYRINGE 0 ML IV SCH (16:03)
[2018-05-29] MEDS: methylPREDNISolone 40 MG in SYRINGE 0 ML IV SCH ×2 (04:04→16:00)
[2018-05-29] MEDS: ALBUT/IPRATROP 3MG/0.5MG NEB 3 ML VIAL INH SCH ×5 (07:05→19:57)
[2018-05-29] MEDS: FORMOTEROL 20 MCG/2 ML VIAL INH SCH ×2 (07:06→19:57)
[2018-05-29] MEDS ORDERED: COUGH DROP (SUGAR FREE) LOZ 24 LOZ/1 BOX BUCCAL ONE (07:38)
[2018-05-29] MEDS: ASPIRIN 325 MG ECTAB PO SCH (07:40)
[2018-05-29] MEDS: AZITHROMYCIN 250 MG TAB PO SCH (07:40)
[2018-05-29] MEDS: ENOXAPARIN INJ 40 MG/0.4 ML SYR SQ SCH (07:41)
[2018-05-29 08:33] LABS: BUN Creatinine Ratio 22.3 (10-20); Creatinine Clr Calc Pharmacy 51.7 ml/min; Est GFR (African American) 76.4; Est GFR (Non-African American) 65.9
--- NOTE | 2018-05-29 13:47 | Hospitalist Progress Note ---
Date of Service May 29, 2018 Assessment & Plan (1) COPD (chronic obstructive pulmonary disease): Patient has severe COPD by clinical examination, Solu-Medrol 40 every 12, duo nebs, formoterol, and azithromycin for for bronchitis. 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 Having difficulty expectorating mucus and being increasingly dyspneic on exertion even with minimal movement about at the hospital room Review of Systems ROS: Weak tired fatigued and dyspneic No double vision blurry vision No problems with speech or swallowing No palpitations, chest pain or pressure Market shortness of breath with poor air movement No abdominal pain nausea vomiting diarrhea changes in appetite or weight No burning urine urine frequency or changes in color No focal joint pain or muscle pain No skin rashes or oral lesions No unusual bruising or bleeding No focused back pain or numbness or loss of strength No changes in memory or confusion Physical Exam 2 Vital Signs (Past 24 Hours): Last Vital Signs Temp 36.5 C 05/29/18 11:41 Pulse 103 H 05/29/18 12:51 Resp 18 05/29/18 12:51 BP 166/86 H 05/29/18 11:41 Pulse Ox 97 05/29/18 12:51 The patient appeared chronic changes of COPD barrel chested Vital signs as documented. Remains tachypneic Head exam is unremarkable. normocephalic, atraumatic Neck is without jugular venous distension, thyromegaly, or lymphademopathy Lungs are poor air movement in all lung chow no wheezes Cardiac exam reveals Rhythm is regular. First and second heart sounds normal. Abdominal exam reveals normal bowel sounds, no masses, no organomegaly Extremities are nonedematous and both pedal pulses are present Neurologic exam is A&Ox3, no focal deficits, strength is equal bilateral Psychologically seems neither anxious or depressed Skin is warm Dry without bruises or lesions
[2018-05-29] MEDS: guaiFENesin 600 MG TABCR PO SCH (21:59)
[2018-05-30] MEDS: methylPREDNISolone 40 MG in SYRINGE 0 ML IV SCH ×2 (04:16→22:28)
[2018-05-30] MEDS ORDERED: ALBUT/IPRATROP 3MG/0.5MG NEB 3 ML VIAL NEB STA (06:15)
[2018-05-30 06:27] LABS: Hematocrit (blood only) 43.7 % (42-52); Hemoglobin 14.6 g/dL (14.0-18.0); Mean Corpuscular Hgb Conc 33.4 g/dL (32-36); Mean Corpuscular Volume 87.8 fL (80-100); Mean Platelet Volume 9.8 fL (7.4-10.4); Platelet Count 256 K/uL (130-400); RDW Coefficient of Variation 14.2 % (11.5-14.5); RDW Standard Deviation 45.6 fL (36.4-46.3); Red Blood Count 4.98 M/uL (4.7-6.1); White Blood Count 9.17 K/uL (4.8-10.8)
[2018-05-30 07:00] LABS: BUN Creatinine Ratio 19.6 (10-20); Calcium 8.9 mg/dl (8.5-10.1); Est GFR (African American) 71.9; Potassium 4.3 mmol/L (3.5-5.1)
[2018-05-30] MEDS: ALBUT/IPRATROP 3MG/0.5MG NEB 3 ML VIAL INH SCH ×4 (07:16→19:33)
[2018-05-30] MEDS: guaiFENesin 600 MG TABCR PO SCH ×2 (07:50→20:11)
[2018-05-30] MEDS: AZITHROMYCIN 250 MG TAB PO SCH (07:51)
[2018-05-30] MEDS: ASPIRIN 325 MG ECTAB PO SCH (07:51)
[2018-05-30] MEDS: FORMOTEROL 20 MCG/2 ML VIAL INH SCH ×2 (08:34→19:32)
[2018-05-30] MEDS: ENOXAPARIN INJ 40 MG/0.4 ML SYR SQ SCH (11:03)
[2018-05-30] MEDS ORDERED: FUROSEMIDE 40 MG in SYRINGE 0 ML IV ONE (16:00)
[2018-05-30] MEDS ORDERED: methylPREDNISolone 80 MG in SYRINGE 0 ML IV STA (16:19)
[2018-05-30 16:54] LABS: HCO3 ABG 27 mmol/L (19-24); Oxygen Saturation ABG 95.8 % (90-95); PCO2 ABG 37 mmHg (35-46); PO2 ABG 77 mm/Hg (80-95); pH ABG 7.47 (7.35-7.45)
[2018-05-30 16:56] LABS: Allen Test POS (Pos)
--- NOTE | 2018-05-30 19:27 | Consultation Report ---
DATE OF CONSULTATION: 05/30/2018 REPORT OF CONSULTATION: The patient is being seen in room #286 bed #2. He is a 68-year-old male with a history of emphysema and COPD. He relates that he was hospitalized in 2017 with an exacerbation. He had been a long-term smoker. He ultimately quit smoking 12/20/2017 after having smoked most of his lifetime. He states that he was in his usual state of health until sometime shortly after Thanksgiving. He has been more short of breath than normal since then. His breathing got much worse about 4 days before coming to the Emergency Room in the strip polisher hours of 05/28/2018. In the ER, the respiratory rate was 32 and the heart rate was 116. He was on BiPAP for a period of time. The patient insists that yesterday he felt good, but today he is still quite winded. He actually feels worse today than yesterday, although nursing staff states he is about the same in their opinion. He has a cough but without sputum. He denies chills, fevers, or sweats. He denies chest pains. There has been no hemoptysis. He has been wheezing. He has marked orthopnea. The patient relates that as an outpatient, he was only taking Ventolin. He had been given a trial of an Anoro Ellipta, but he felt this bothered his eyes and he stopped it. He has not been on any other maintenance medications. He states he does not really feel like he has a cold in his chest. PAST SURGICAL HISTORY: 1. Right ulnar nerve surgery. 2. Hernia repair. PAST MEDICAL HISTORY: The patient denies a prior history of hypertension, though his blood pressure has been elevated here. He denies diabetes. He denies having any heart problems, although his EKG is abnormal. He denies kidney problems, liver problems, or other illnesses. FAMILY HISTORY: Mother at age 54, pancreatic cancer, diabetes and she had a blood clot. Father in his 60s, heart disease. ALLERGIES: PENICILLIN. OCCUPATIONAL HISTORY: The patient worked at [employer], did [employer], and did [employer]. 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 HOME MEDICATIONS: Only Ventolin HFA p.r.n. REVIEW OF SYSTEMS: The patient's energy level has been low. Denies headaches or dizziness. He has some nasal congestion. Appetite is decreased in the past 3 days, but prior to that was good. He believes he has lost 10 pounds in the past year. The patient lives alone. He has had soreness in the abdominal wall muscles. He denies heartburn. Denies bowel complaints. Denies urinary problems. The remainder of the review of systems is negative except as noted above and in the history of present illness. Ten systems reviewed. PHYSICAL EXAMINATION: GENERAL: The patient is a 68-year-old male who was uncomfortable at rest. He was coughing periodically. He looks short of breath at rest. VITAL SIGNS: Temperature is 36.6. There has been no fevers since admission. HEENT: Pupils were reactive to light. Nares were narrow. Mouth exam showed dentures on top and an absence of teeth on the bottom. NECK: Palpation of the neck reveals no lymph nodes or masses. HEART: The cardiac rate was 105. Rhythm was regular. Blood pressure is elevated at 164/99. His blood pressure has been high since admission. LUNGS: Respiratory rate is 26 per minute. There is marked prolongation to the expiratory phase of respiration. He is mildly using the accessory muscles of respiration. Diffuse wheeze was heard. Saturation was 89% on room air at the time of my exam. ABDOMEN: Soft. Bowel sounds were present. He complained of tenderness to palpation in the right upper quadrant. No masses were palpable. EXTREMITIES: Showed no cyanosis, clubbing, or edema. LABORATORY DATA: Chest x-ray on admission suggested bullous emphysema with apical scarring bilaterally. CAT scan of the chest showed no evidence of pulmonary embolic disease. Advanced bullous emphysema was seen. Granulomatous disease was noted. There is a 5-mm solid nodule in the right upper lobe that had been seen on a CAT scan done 02/28/2018. White count is 9.17, hemoglobin 14.6, platelets 256,000. D-dimer was 2230. Coags were normal. Troponins were elevated as high as 0.197 with the last one being 0.155. ProBNP was severely elevated at 8204. Cholesterol was normal at 144. Triglycerides were normal at 83. Total protein was 7.8. Albumin was 4 and globulin 3.8. AST mildly elevated at 43. Flu test was negative. EKG on admission showed a sinus tachycardia with a rate of 115. Q-waves were seen in the inferior leads suggesting possible inferior infarct. The QTC was top normal at 495. EKG done today shows QTC prolonged to 515. There appears to be an inferior [place], age indeterminant. Premature atrial contractions were noted. T-wave inversion was seen in some anterior leads, but was no longer seen in the inferior leads. IMPRESSION: 1. Respiratory failure, [id number] with hypoxia. 2. Bullous emphysema. 3. A 5-mm right upper lobe nodule. COMMENTS: The patient is extremely tight. His elevation of BNP would suggest the possibility of CHF. The patient clearly is in mild distress. RECOMMENDATIONS: 1. Arterial blood gas. 2. Methylprednisolone 80 mg IV stat and then change to 40 IV q. 6 hours. 3. Echocardiogram. 4. Alpha 1 antitrypsin level. MTDD
--- NOTE | 2018-05-30 21:46 | Hospitalist Progress Note ---
Date of Service May 30, 2018 Assessment & Plan (1) COPD (chronic obstructive pulmonary disease): Patient has severe COPD by clinical examination, Solu-Medrol 40 every 12, duo nebs, formoterol, and azithromycin for for bronchitis. James continue mucinex. Will consult pulmonary. Given rales and no improvement, will order BNP. If elevated will place patient on duiretic. May consider echocardiogram. Concern that CHF may also be playing a role in his SOB. Flu is negative as well as CTA for PE UPDATE: aFTER PULMONARY CONSULT, WILL INCREASE SOLUMEDROL TO Q8H. Will also obtain ABG to check for CO2 retention. ABG was negative. BNP was elevated will place on diuretics (2) Elevated troponin: Mild rise and now drop this patient does not have acute coronary syndrome does have supply demand mismatch from his profound hypoxia he remain on a pvc monitor and aspirin (3) DVT prophylaxis: Enoxaparin subcutaneously (4) Pulmonary nodule: Will be in the pulmonary nodule program for appropriate follow-up Spent 40 minutes in management of patient. Subjective Patient continues to report intermittent tachypnea. Patient reports that he has orthopnea and continues to be SOB upon exertion. Patient continues to have difficulty expectorating mucus and being increasingly dyspneic on exertion even with minimal movement about at the hospital room Physical Exam 2 Vital Signs (Past 24 Hours): Last Vital Signs Temp 36.6 C 05/30/18 19:43 Pulse 98 H 05/30/18 19:43 Resp 28 H 05/30/18 19:43 BP 150/95 H 05/30/18 19:43 Pulse Ox 95 05/30/18 19:43 Physical Exam: The patient appeared chronic changes of COPD barrel chested Vital signs as documented. Remains tachypneic Head exam is unremarkable. normocephalic, atraumatic Neck is without jugular venous distension, thyromegaly, or lymphademopathy Lungs are poor air movement in all lung chow no wheezes. Patient however has rales on exam. Cardiac exam reveals Rhythm is regular. First and second heart sounds normal. Abdominal exam reveals normal bowel sounds, no masses, no organomegaly Extremities are nonedematous and both pedal pulses are present Neurologic exam is A&Ox3, no focal deficits, strength is equal bilateral Psychologically seems neither anxious or depressed Skin is warm Dry without bruises or lesions
[2018-05-31] MEDS: methylPREDNISolone 40 MG in SYRINGE 0 ML IV SCH ×3 (04:20→21:33)
[2018-05-31] MEDS ORDERED: PERFLUTREN LIPID MICROSPHERE (DEFINITY) IV ONE (07:10)
[2018-05-31] MEDS: ALBUT/IPRATROP 3MG/0.5MG NEB 3 ML VIAL INH SCH ×2 (07:14→11:18)
[2018-05-31] MEDS: FORMOTEROL 20 MCG/2 ML VIAL INH SCH ×2 (07:14→20:29)
[2018-05-31 07:51] LABS: BUN Creatinine Ratio 22.3 (10-20); Calcium 8.8 mg/dl (8.5-10.1); Creatinine Clr Calc Pharmacy 54.6 ml/min; Est GFR (African American) 84.3; Est GFR (Non-African American) 72.8; Potassium 4.5 mmol/L (3.5-5.1)
[2018-05-31] MEDS: guaiFENesin 600 MG TABCR PO SCH ×2 (08:01→20:48)
[2018-05-31] MEDS: AZITHROMYCIN 250 MG TAB PO SCH (08:02)
[2018-05-31] MEDS: ASPIRIN 325 MG ECTAB PO SCH (08:02)
--- NOTE | 2018-05-31 10:19 | Hospitalist Progress Note ---
Date of Service May 31, 2018 Assessment & Plan (1) COPD (chronic obstructive pulmonary disease): Chronic obstructive pulmonary disease with (acute) exacerbation Acute respiratory failure with hypoxia Patient has severe COPD by clinical examination, Solu-Medrol 40 every 12, duo nebs, formoterol, and azithromycin for for bronchitis. James continue mucinex. Will consult pulmonary. Patient has orthopnea and rales, looks like patient may have acute congestive heart failure. Placed patient on diuretic. Ordered echocardiogram. It confirmed acute systolic congestive heart failure. EF though is very low. Patient does have risk factors for ischemic cardiomyopathy but wall motion does not look like a localized defect in motion. Patient will continue on diuretics and will consult cardio. 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 (5) Acute renal failure: Acute kidney failure, POA, resolved Subjective Patient continues to feel short of breath. Patient reports not much imrpvoement from the previous day. Physical Exam 2 Vital Signs (Past 24 Hours): Last Vital Signs Temp 36.5 C 05/31/18 08:00 Pulse 94 H 05/31/18 08:00 Resp 18 05/31/18 08:00 BP 167/84 H 05/31/18 08:00 Pulse Ox 95 05/31/18 08:00 Physical Exam: The patient appeared chronic changes of COPD barrel chested Vital signs as documented. Remains tachypneic Head exam is unremarkable. normocephalic, atraumatic Neck is without jugular venous distension, thyromegaly, or lymphademopathy Lungs are poor air movement in all lung chow no wheezes. Patient however has rales on exam. Cardiac exam reveals Rhythm is regular. First and second heart sounds normal. Abdominal exam reveals normal bowel sounds, no masses, no organomegaly Extremities are nonedematous and both pedal pulses are present Neurologic exam is A&Ox3, no focal deficits, strength is equal bilateral Psychologically seems neither anxious or depressed Skin is warm Dry without bruises or lesions
[2018-05-31] MEDS: ENOXAPARIN INJ 40 MG/0.4 ML SYR SQ SCH (11:26)
--- NOTE | 2018-05-31 14:40 | Progress Note ---
DATE: 05/31/2018 PULMONARY PROGRESS NOTE TIME: 2:05 p.m. SUBJECTIVE: The patient is still very short of breath, but he thinks he is somewhat improved. He is noticing some tremors. I suspect this may be related to either neb treatments or steroids or a combination of both. He is complaining of some difficulty swallowing food. He thinks it occurs when he is feeling mucus in his throat. He has started to cough up some mucus that is thick and yellow to white in color. He has expectorated 3 times today mucus about the size of a nickel. He is not having chest pains. OBJECTIVE: GENERAL: The patient was mildly short of breath at rest. ENT: Unchanged from yesterday. VITAL SIGNS: Temperature is 36.7 and he has been afebrile. Heart rate is 104 per minute. Occasional extrasystoles were heard. Blood pressure elevated 166/97. LUNGS: The breath sounds remain diffusely diminished. There was prolongation to the expiratory phase of respiration. Wheezing is still heard, but aeration is mildly improved compared with yesterday. There is no hepatojugular reflux. EXTREMITIES: Showed no cyanosis, clubbing or edema. Oxygen saturation on 2 liters 95%. LABORATORY DATA: The patient had an arterial blood gas done yesterday. This showed a pH 7.47, pCO2 of 37 and a pO2 of 77 on 2 liters. Electrolytes show sodium 130, potassium 4.5, chloride 95, bicarbonate 29. BUN is 24 with a creatinine 1.06. Blood sugar 116. Echocardiogram done today shows a severe reduction in the ejection fraction to 15-20%. There is also grade 1 diastolic dysfunction. Right ventricle was normal. This would suggest severe left ventricular dysfunction. It is notable that his EKG had shown evidence of a probable prior inferior wall [place]. IMPRESSION: 1. Respiratory failure - acute on chronic with hypoxia. 2. Systolic congestive heart failure. 3. Bullous emphysema. 4. Right upper lobe nodule - small. COMMENTS AND RECOMMENDATIONS: The patient's problem appears to be a combination of pulmonary problems and cardiac problems. In light of the severely decreased ejection fraction, would suggest cardiology consultation. He is having tremors. We will decrease his methylprednisolone to q. 12 hours. Would suggest changing his neb treatments to levalbuterol 0.63 plus ipratropium q. 6 hours. He likely will have less tremors associated with this than with the DuoNebs.
[2018-05-31] MEDS ORDERED: FUROSEMIDE 40 MG in SYRINGE 0 ML IV ONE (15:00)
--- NOTE | 2018-05-31 17:59 | Cardiology Consultation ---
Date of Consultation May 31, 2018 Assessment & Plan (1) CHF (congestive heart failure): While the patient does have known COPD, it would seem likely that some of his symptoms of dyspnea are related to pulmonary edema. He did have a markedly elevated N-terminal proBNP at the time of admission. And, while his x-ray was not read as pulmonary edema, his symptoms of orthopnea also suggest pulmonary vascular congestion. His breathing may improve more rapidly with diuresis. He has been prescribed some Lasix currently and I expect a prompt response given the fact that he is not used Lasix in the past. We will monitor his clinical response, electrolytes and renal function. With his market hypertension we could also employ topical nitrates which would have some effect in reducing pulmonary pressures and symptoms. (2) Cardiomyopathy: Unclear etiology and duration of cardiomyopathy. Certainly ischemic heart disease would be the most likely reason for reduced LV function. He does not report symptoms of angina or coronary insufficiency. While he does have regional wall motion abnormalities, the function of the apex appears best which would be unusual for coronary disease. However, given his risk factors some evaluation of his coronaries is likely warranted. We could perform this prior to discharge or on an outpatient basis. We will need to initiate medical therapy as well. Given his market hypertension institution of TAMY inhibition would be reasonable. Beta-blockade would also be necessary however this could be deferred until he is better compensated. Hopefully with selective beta blockade such as metoprolol we will not experience worsening of his underlying COPD. (3) Elevated troponin: He does have very mildly elevated cardiac biomarkers. This is likely more reflective of his cardiomyopathy than a recent acute coronary syndrome. His symptoms did seem to start just a few days prior to admission. However, I would think for such severely reduced LV systolic function he would have had to have had a very large infarct which is not reflected in the biomarkers reported. History of Present Illness Reason for Consultation: CHF Requesting Physician: Abelino Attending Physician: Cj Roca History of Present Illness The patient is a 68-year-old gentleman without a known history of cardiac disease who presented to [facility] with several days of worsening dyspnea. The patient is known to suffer from severe COPD. He does use nebulizer therapies at home. He states that ever since 2017 he has had some element of dyspnea which waxes and wanes in severity. However, over the past 3 days he has also been unable to sleep in his bed. He states that he had to sleep on his couch which is unusual for him. He had worsening breathing difficulty when attempting to lie flat. He has not been aware of any edema. He did not report any swelling in his lower extremities. He did report occasional episodes of tightness in his chest that seem to be relieved with nebulizer therapy. Since admission the patient states that he is feeling better. He was placed on an aggressive regimen for treatment of COPD. However, his improvement has been slow. He did have some abnormalities both on EKG and serum studies which prompted an echocardiogram. This revealed severely reduced LV systolic function. Allergies Allergy/AdvReac Type Severity Reaction Status Date / Time Penicillins Allergy Unknown Verified 02/25/17 13:52 Home Medications Home Medications Medication Instructions Recorded Confirmed Type albuterol sulfate [Ventolin HFA] 2 puff INHALATION Q4 PRN 05/28/18 05/28/18 History Patient History Medical History Bronchitis COPD (chronic obstructive pulmonary disease) History of tobacco abuse Pulmonary nodule Family History Unknown Hypertension Other Family history non-contributory Social History Current Living Situation: Alone Other Information That Helps Us Care for You: No Feels Safe at Home: Yes Safety Concerns: Feels Safe At This Time Smoking Status: Former smoker Hx Alcohol Use: No Hx Substance Use: No Beliefs That Will Affect Care: None Communication Ability: Effective Review of Systems Complete. Pertinent positives noted in the history of present illness. The patient did not report recent fevers or chills. He has not been aware of any palpitations or rapid heartbeats. He does not have symptoms of dizziness or lightheadedness. He cannot recall any episodes of syncope. He denies any dietary indiscretion. He generally cooks for himself and uses limited sodium. Outside of the chest pressure noted previously he did report one episode of severe "indigestion" several years ago. Physical Exam 2 Vital Signs (Past 24 Hours): Last Vital Signs Temp 36.7 C 05/31/18 11:37 Pulse 106 H 05/31/18 16:00 Resp 20 05/31/18 11:37 BP 177/94 H 05/31/18 15:52 Pulse Ox 92 05/31/18 15:52 Physical Exam: The patient is alert and oriented. Mood and affect appeared normal. He answered all questions appropriately. HEENT: Pupils are equal and reactive to light and accommodation. Extraocular movements are intact. The sclerae are anicteric. Neuro: Cranial nerves intact Neck: Patient's neck is supple. He has palpable carotid pulses bilaterally without bruits on auscultation. There is minimal jugular venous distention. The thyroid is not enlarged. Lungs: Clear to auscultation bilaterally but distant. Occasional crackle at the bases. He has good air movement without use of accessory muscles. No wheezes or rhonchi. Cardiac: Heart demonstrates a regular rate and rhythm. Normal S1 and S2. No murmurs on examination. Pulses: The patient has palpable radial pulses bilaterally that are equal in intensity Extremities: There was no evidence of hypoperfusion. There is no cyanosis or clubbing. There is no edema. Skin: I did not appreciate any rashes on examination today. Results & Data Laboratory Results Abnormal Lab Results 05/31/18 07:15 Sodium 130 L Potassium 4.5 Chloride 95 L Carbon Dioxide 29 Anion Gap 6.0 BUN 24 H Creatinine 1.06 Est Cr Clr Drug Dosing 54.6 Est GFR ( Amer) 84.3 Est GFR (Non-Af Amer) 72.8 BUN/Creatinine Ratio 22.3 H Glucose 116 H Calcium 8.8 Diagnostic Findings Chest x-ray obtained at the time of admission did not reveal any evidence of pulmonary vascular congestion. CT PE protocol did not reveal any thromboembolic disease. He did have a pulmonary nodule but no other significant findings. Echocardiogram was obtained today which revealed severely reduced LV systolic function with some regional wall motion abnormalities. No significant valvular heart disease. ECG Additional Comments: Sinus rhythm with old inferior CT
[2018-05-31] MEDS: LEVALBUTEROL HCL 0.63 MG/3 ML NEB NEB SCH (19:36)
[2018-05-31] MEDS: IPRATROPIUM BROMIDE NEB SOLN 0.02% 2.5 ML VIAL INH SCH (19:36)
[2018-05-31] MEDS ORDERED: XOPENEX/ATROVENT 0.63mg/0.5MG NEB COMBO NEB SCH (20:00)
[2018-06-01] MEDS: IPRATROPIUM BROMIDE NEB SOLN 0.02% 2.5 ML VIAL INH SCH ×4 (01:42→19:20)
[2018-06-01] MEDS: LEVALBUTEROL HCL 0.63 MG/3 ML NEB NEB SCH ×4 (01:42→19:21)
[2018-06-01 06:22] LABS: Hematocrit (blood only) 45.7 % (42-52); Hemoglobin 15.4 g/dL (14.0-18.0); Mean Corpuscular Hgb Conc 33.7 g/dL (32-36); Mean Corpuscular Volume 86.7 fL (80-100); Mean Platelet Volume 9.9 fL (7.4-10.4); Platelet Count 305 K/uL (130-400); RDW Coefficient of Variation 13.8 % (11.5-14.5); RDW Standard Deviation 43.9 fL (36.4-46.3); Red Blood Count 5.27 M/uL (4.7-6.1); White Blood Count 11.76 K/uL (4.8-10.8)
[2018-06-01 06:55] LABS: Calcium 8.6 mg/dl (8.5-10.1); Creatinine Clr Calc Pharmacy 43.4 ml/min; Est GFR (African American) 64.7; Est GFR (Non-African American) 55.8; Potassium 4.3 mmol/L (3.5-5.1)
[2018-06-01] MEDS: FORMOTEROL 20 MCG/2 ML VIAL INH SCH ×2 (07:06→19:40)
[2018-06-01] MEDS: ASPIRIN 325 MG ECTAB PO SCH (07:57)
[2018-06-01] MEDS: AZITHROMYCIN 250 MG TAB PO SCH (07:57)
[2018-06-01] MEDS: guaiFENesin 600 MG TABCR PO SCH ×2 (07:57→20:40)
--- NOTE | 2018-06-01 09:54 | Cardiology Progress Note ---
Date of Service June 01, 2018 Assessment & Plan (1) CHF (congestive heart failure): Some improvement in breathing. He affected a mild diuresis last evening. I think we should continue his diuresis and monitor his renal function. (2) Cardiomyopathy: We will add TAMY inhibition today. Hope to add beta-blockade prior to discharge. Ideally he will undergo an evaluation for ischemic heart disease. I did describe the procedure of cardiac catheterization to the patient today. This could be performed both as an inpatient or outpatient depending on patient wishes. (3) Elevated troponin: He does have very mildly elevated cardiac biomarkers. This is likely more reflective of his cardiomyopathy than a recent acute coronary syndrome. His symptoms did seem to start just a few days prior to admission. However, I would think for such severely reduced LV systolic function he would have had to have had a very large infarct which is not reflected in the biomarkers reported. Subjective This morning the patient claims to have improvement in his breathing. This is been a fairly gradual process since admission. He was amatory around his room without significant dizziness. He does have some coughing this morning and some nasal congestion. Physical Exam 2 Vital Signs (Past 24 Hours): Last Vital Signs Temp 36.4 C L 06/01/18 07:59 Pulse 98 H 06/01/18 07:59 Resp 18 06/01/18 07:59 BP 151/94 H 06/01/18 07:59 Pulse Ox 97 06/01/18 07:59 Physical Exam: The patient is alert and oriented. Mood and affect appeared normal. He answered all questions appropriately. HEENT: Pupils are equal and reactive to light and accommodation. Extraocular movements are intact. The sclerae are anicteric. Neuro: Cranial nerves intact Lungs: Reduced air movement. Expiratory wheezing and some bibasilar rales Cardiac: Heart demonstrates a regular rate and rhythm. Normal S1 and S2. No murmurs on examination. Pulses: The patient has palpable radial pulses bilaterally that are equal in intensity Extremities: There was no evidence of hypoperfusion. There is no cyanosis or clubbing. There is no edema. Skin: I did not appreciate any rashes on examination today. Results & Data Laboratory Results Abnormal Lab Results 06/01/18 06/01/18 06:04 06:04 WBC 11.76 H RBC 5.27 Hgb 15.4 Hct 45.7 MCV 86.7 MCH 29.2 MCHC 33.7 RDW Std Deviation 43.9 RDW Coeff of Blayne 13.8 Plt Count 305 MPV 9.9 Sodium 130 L Potassium 4.3 Chloride 93 L Carbon Dioxide 31 Anion Gap 6.0 BUN 26 H Creatinine 1.32 Est Cr Clr Drug Dosing 43.4 Est GFR ( Amer) 64.7 Est GFR (Non-Af Amer) 55.8 BUN/Creatinine Ratio 20.0 Glucose 122 H Calcium 8.6
[2018-06-01] MEDS: methylPREDNISolone 40 MG in SYRINGE 0 ML IV SCH ×2 (10:11→21:27)
[2018-06-01] MEDS: ENOXAPARIN INJ 40 MG/0.4 ML SYR SQ SCH (10:11)
[2018-06-01] MEDS ORDERED: FUROSEMIDE 40 MG in SYRINGE 0 ML IV ONE (10:30)
[2018-06-01] MEDS: LISINOPRIL 5 MG TAB PO SCH (11:08)
--- NOTE | 2018-06-01 17:43 | Progress Note ---
DATE: 06/01/2018 TIME: 4:40 p.m. SUBJECTIVE: The patient is feeling a little better each day. He continues to expectorate some thick yellow to green mucus. He states sometimes it will come up and he will feel it, but then swallow it, but other times he will actually expectorate. He remains short of breath but not as short of breath. He states he feels like he is passing more urine than he had been previously. The output for the prior 24 hours was 2025 mL, with an intake of 1605 mL. He has not had any chest pains. OBJECTIVE: GENERAL: The patient appears comfortable at rest. CARDIOVASCULAR: Heart rate is 100 per minute. Rhythm was regular. Soon after I was done examining the patient, he did go to the restroom, and his heart rate immediately went up to 120. Reportedly, he has had a burst of rapid rates earlier today. Blood pressure 102/72. RESPIRATORY: Respiratory rate 16. Breath sounds are diffusely diminished. There is less wheezing. Airflow is better than previous. Saturation on room air is 92%. EXTREMITIES: Show no cyanosis, clubbing, or edema. LABORATORY DATA: White count today was 11.76, hemoglobin 15.4, platelets 305,000. Electrolytes show sodium 130, potassium 4.3, chloride 93, bicarbonate 31, BUN is 26, with a creatinine of 1.32. IMPRESSION: 1. Respiratory failure, acute, with hypoxia. 2. Congestive heart failure, systolic. 3. Bullous emphysema. 4. A 5 mm right upper lobe nodule. COMMENTS AND RECOMMENDATIONS: The patient is improving daily. He has diuresed modestly. He is still on methylprednisolone. I believe this can be changed to prednisone as of tomorrow. He has been on levalbuterol and ipratropium every 6 hours while awake. I would continue those for now in light of his improvement, but if he improves even tomorrow, we perhaps could change him to inhalers at that time.
--- NOTE | 2018-06-02 09:50 | Hospitalist Progress Note ---
Date of Service June 01, 2018 Assessment & Plan (1) COPD (chronic obstructive pulmonary disease): Chronic obstructive pulmonary disease with (acute) exacerbation Acute respiratory failure with hypoxia Patient has severe COPD by clinical examination, Solu-Medrol 40 every 12, duo nebs, formoterol, and azithromycin for for bronchitis. Will continue mucinex. Will consult pulmonary. Patient has orthopnea and rales, looks like patient may have acute congestive heart failure. Placed patient on diuretic. Ordered echocardiogram. It confirmed acute systolic congestive heart failure. EF though is very low. Patient does have risk factors for ischemic cardiomyopathy but wall motion does not look like a localized defect in motion. Patient will continue on diuretics. Plan is do cardiac cath in AM. (2) Elevated troponin: Myocardial demand ischemia Mild rise and now drop this patient does not have acute coronary syndrome does have supply demand mismatch from his profound hypoxia he remains on a spray dyer and aspirin (3) DVT prophylaxis: Enoxaparin subcutaneously (4) Acute renal failure: Acute kidney failure, POA, resolved (5) Pulmonary nodule: Will be in the pulmonary nodule program for appropriate follow-up Spent 45 minutes in management of patient. Updated family Subjective Patient reports doing better today. He is no longer on oxygen and feels less short of breath at rest. Physical Exam 2 Vital Signs (Past 24 Hours): Last Vital Signs Temp 36.6 C 06/01/18 15:00 Pulse 90 06/01/18 15:00 Resp 16 06/01/18 15:00 BP 102/72 06/01/18 15:00 Pulse Ox 92 06/01/18 15:00 Physical Exam: The patient appeared chronic changes of COPD barrel chested Vital signs as documented. Remains tachypneic Head exam is unremarkable. normocephalic, atraumatic Neck is without jugular venous distension, thyromegaly, or lymphademopathy Lungs are poor air movement in all lung chow no wheezes. Patient has rales on exam but this is decreased Cardiac exam reveals Rhythm is regular. First and second heart sounds normal. Abdominal exam reveals normal bowel sounds, no masses, no organomegaly Extremities are nonedematous and both pedal pulses are present Neurologic exam is A&Ox3, no focal deficits, strength is equal bilateral Psychologically seems neither anxious or depressed Skin is warm Dry without bruises or lesions
[2018-06-02] MEDS: FORMOTEROL 20 MCG/2 ML VIAL INH SCH ×2 (10:00→19:04)
[2018-06-02] MEDS: IPRATROPIUM BROMIDE NEB SOLN 0.02% 2.5 ML VIAL INH SCH ×3 (10:01→19:08)
[2018-06-02] MEDS: LEVALBUTEROL HCL 0.63 MG/3 ML NEB NEB SCH ×3 (10:01→19:08)
[2018-06-02] MEDS: guaiFENesin 600 MG TABCR PO SCH ×2 (10:35→21:14)
[2018-06-02] MEDS: ASPIRIN 325 MG ECTAB PO SCH (10:35)
[2018-06-02] MEDS: methylPREDNISolone 40 MG in SYRINGE 0 ML IV SCH ×3 (10:39→21:14)
[2018-06-02] MEDS: LISINOPRIL 5 MG TAB PO SCH (10:39)
[2018-06-02] MEDS: AZITHROMYCIN 250 MG TAB PO SCH (10:43)
[2018-06-02] MEDS: ENOXAPARIN INJ 40 MG/0.4 ML SYR SQ SCH (10:43)
[2018-06-02] MEDS ORDERED: FUROSEMIDE 40 MG in SYRINGE 0 ML IV ONE (11:00)
--- NOTE | 2018-06-02 14:46 | Progress Note ---
DATE: 06/02/2018 PULMONARY PROGRESS NOTE TIME: 2:00 p.m. SUBJECTIVE: The patient states he has been having a little coughing spell for about the last half hour. It is dry. He has not expectorated anything. He has been n.p.o. all day in preparation for a cardiac catheterization. I am wondering if his mouth might be very dry and his throat dry. His oxygenation has been good. He has not required nasal cannula at all today. OBJECTIVE: GENERAL: The patient appears comfortable, but he is coughing. VITAL SIGNS: Temperature 36.5. There have been no fevers. Cardiac rate is 87 per minute. Rhythm is regular. Blood pressure 122/72. Respiratory rate was 20 breaths per minute. LUNGS: Breath sounds are diffusely diminished. No active wheeze was heard. He was coughing as noted. Saturation on room air 94%. EXTREMITIES: Showed no cyanosis, clubbing or edema. LABORATORY DATA: The patient did not have any labs today. IMPRESSION: 1. Respiratory failure with hypoxia. 2. Congestive heart failure - systolic. 3. Bullous emphysema. 4. 5 mm right upper lobe nodule. COMMENTS AND RECOMMENDATIONS: The patient is generally improved. I believe after today, he can be switched to prednisone starting at 40 mg daily. Would continue to try to increase ambulation. The patient will ultimately need outpatient medications. Would suggest sending him with a long-acting beta agonist combined with an inhaled steroid. That could be either Symbicort, Dulera, Advair, or Breo Ellipta. We would all depend upon which is covered by his insurance. He should have a nebulizer for home. For the nebulizer solutions, would use DuoNebs. I do not think he will need Perforomist upon discharge. There is the issue of a 5 mm nodule. He should have a followup CAT scan in about 6 months. He should have PFTs as an outpatient. He could be followed in the pulmonary office if desired.
[2018-06-02] MEDS ORDERED: MIDAZOLAM HCL 1 MG/ML 2ML VIAL ONE ×2 (14:51→14:55)
[2018-06-02] MEDS ORDERED: fentaNYL citrate 100 MCG/2 ML VIAL ONE (14:51)
[2018-06-02] MEDS ORDERED: HEPARIN (PORCINE) 1000 UNIT/ML 10 ML (CATH LAB USE ONLY) ONE (14:51)
[2018-06-02] MEDS ORDERED: NiCARDipine HCL INJ 2.5 MG/ML 10 ML AMP ONE (14:51)
[2018-06-02] MEDS ORDERED: NITROGLYCERIN/D5W 100MCG/ML 20ML SYR ONE (14:52)
--- NOTE | 2018-06-02 15:24 | Pre Anesthesia Assessment ---
Date of Service June 02, 2018 Pre Sedation Assessment Vital Signs Temp Pulse Pulse Pulse Resp BP BP 06/02/18 15:05 105 H 06/02/18 13:20 87 24 06/02/18 11:10 36.5 C 58 L 18 122/72 06/02/18 10:38 76 124/80 06/02/18 07:59 36.5 C 76 20 146/96 H 06/02/18 07:52 69 06/02/18 04:00 36.6 C 83 20 133/75 06/02/18 00:00 75 06/01/18 23:42 36.9 C 69 18 120/73 06/01/18 19:23 90 18 06/01/18 19:00 36.5 C 73 16 96/63 L 06/01/18 15:39 101 H Pulse Ox 06/02/18 15:05 06/02/18 13:20 94 06/02/18 11:10 93 06/02/18 10:38 06/02/18 07:59 91 06/02/18 07:52 06/02/18 04:00 92 06/02/18 00:00 06/01/18 23:42 92 06/01/18 19:23 95 06/01/18 19:00 93 06/01/18 15:39 Cardiovascular + regular rate Respiratory + respiratory effort normal Pre-Sedation Airway Assessment Smoking Status: Former smoker Hx Sleep Apnea: No Hx Difficult Intubation: No Short, Thick Neck: No Thyromental Distance: > or= 3.5 Finger Breadths Oral Cavity: + WNL Mallampati Class: III ASA: ASA3 Procedure Planning Contraindications for Sedation: none Current Medications Reviewed: Yes Notes The planned sedation has been discussed with the patient. Informed Consent was obtained. I have identified the patient, determined the appropriateness of sedation and have assessed the patient immediately prior to the procedure. All medicine(s) and interventions are by my order.
[2018-06-02] MEDS ORDERED: ACETAMINOPHEN 325 MG TAB PO PRN (15:55)
--- NOTE | 2018-06-02 15:55 | Cardiac Catheterization ---
Cardiac Cath Procedure: Brief Procedure Date June 02, 2018 Pre-Procedure Diagnosis Pre-Procedure Diagnosis: Cardiomyopathy AUC Score AUC Score: 7 Post-Procedure Diagnosis Post-Procedure Diagnosis: Moderate CAD Procedure(s) Performed Procedure(s) Performed: Coronary Angiography and Left Heart Cath Implementation Analyst Grupo Schofield MD City Designer(s) none Estimated Blood Loss Estimated Blood Loss: 5cc Medication(s) Medication(s): Fentanyl, Heparin, Nicardipine, Nitroglycerin and Versed Preliminary Findings NOn-obtrauctive LAD disease. Nml LCx. Chronic total distal RCA with collaterals Recommendations Recommendations: Medical Therapy and/or Counseling Specimens Specimens: None Fluids (cc crystalloids) Fluids (cc crystalloids): 70 Procedural Complication(s) None Disposition PCU
--- NOTE | 2018-06-02 20:54 | Cardiology Progress Note ---
Date of Service June 02, 2018 Assessment & Plan (1) CHF (congestive heart failure): His breathing continues to improve. His LVEDP was actually quite low. He has been adequately diuresed and does not require any more inpatient diuresis. (2) Cardiomyopathy: His cardiomyopathy appears to be nonischemic. We will start him on medical therapy to include a beta-kathy in addition to his TAMY inhibitor. I do not believe he requires a daily diuretic but he will need to monitor his weight closely at the time of discharge. (3) Elevated troponin: No acute coronary syndrome. No severe coronary disease. No need for coronary intervention. Subjective This morning the patient claims to be feeling better. He states that his breathing continues to improve. He reports being able to lie almost flat last night to sleep. Has been amatory to the bathroom without significant dizziness. No chest pain. Physical Exam 2 Vital Signs (Past 24 Hours): Last Vital Signs Temp 36.5 C 06/02/18 20:00 Pulse 96 H 06/02/18 20:00 Resp 19 06/02/18 20:00 BP 118/80 06/02/18 20:00 Pulse Ox 95 06/02/18 20:00 Physical Exam: The patient is alert and oriented. Mood and affect appeared normal. He answered all questions appropriately. HEENT: Pupils are equal and reactive to light and accommodation. Extraocular movements are intact. The sclerae are anicteric. Neuro: Cranial nerves intact Neck: Patient's neck is supple. He has palpable carotid pulses bilaterally without bruits on auscultation. There is no evidence of jugular venous distention. The thyroid is not enlarged. Lungs: Distant breath sounds. Some expiratory wheezing. No rales Cardiac: Heart demonstrates a regular rate and rhythm. Normal S1 and S2. No murmurs on examination. Pulses: The patient has palpable radial pulses bilaterally that are equal in intensity Extremities: There was no evidence of hypoperfusion. There is no cyanosis or clubbing. There is no edema. Skin: I did not appreciate any rashes on examination today. Atrial fibrillation Results & Data Diagnostic Findings Coronary angiography performed today revealed chronic total occlusion of the right coronary branch with some nonobstructive disease in the other territories.
--- NOTE | 2018-06-02 22:51 | Hospitalist Progress Note ---
Date of Service June 02, 2018 Assessment & Plan (1) COPD (chronic obstructive pulmonary disease): Chronic obstructive pulmonary disease with (acute) exacerbation Acute respiratory failure with hypoxia Patient has severe COPD by clinical examination, Solu-Medrol 40 every 12, duo nebs, formoterol, and azithromycin for for bronchitis. Will continue mucinex. Will consult pulmonary. Patient has orthopnea and rales, looks like patient may have acute congestive heart failure. Placed patient on diuretic. Ordered echocardiogram. It confirmed acute systolic congestive heart failure. EF though is very low. Patient does have risk factors for ischemic cardiomyopathy but wall motion does not look like a localized defect in motion. Patient will continue on diuretics. Plan is do cardiac cath today (2) Elevated troponin: Myocardial demand ischemia Mild rise and now drop this patient does not have acute coronary syndrome does have supply demand mismatch from his profound hypoxia he remains on a biostatistician and aspirin (3) DVT prophylaxis: Enoxaparin subcutaneously (4) Acute renal failure: Acute kidney failure, POA, resolved (5) Pulmonary nodule: Will be in the pulmonary nodule program for appropriate follow-up Spent 25 minutes in management of patient. Subjective Patient reports doing better today. He is no longer on oxygen and feels less short of breath at rest. Patient is awaiting cardiac cath. Physical Exam 2 Vital Signs (Past 24 Hours): Last Vital Signs Temp 36.5 C 06/02/18 20:10 Pulse 96 H 06/02/18 20:10 Resp 18 06/02/18 20:10 BP 118/80 06/02/18 20:10 Pulse Ox 95 06/02/18 20:10 Physical Exam: The patient appeared chronic changes of COPD barrel chested Vital signs as documented. Remains tachypneic Head exam is unremarkable. normocephalic, atraumatic Neck is without jugular venous distension, thyromegaly, or lymphademopathy Lungs are poor air movement in all lung chow no wheezes. Patient has rales on exam but this is again decreased as compared to yesterday. Cardiac exam reveals Rhythm is regular. First and second heart sounds normal. Abdominal exam reveals normal bowel sounds, no masses, no organomegaly Extremities are nonedematous and both pedal pulses are present Neurologic exam is A&Ox3, no focal deficits, strength is equal bilateral Psychologically seems neither anxious or depressed Skin is warm Dry without bruises or lesions
[2018-06-03 06:43] LABS: Hematocrit (blood only) 44.7 % (42-52); Hemoglobin 15.2 g/dL (14.0-18.0); Mean Corpuscular Volume 87.3 fL (80-100); Mean Platelet Volume 9.6 fL (7.4-10.4); Platelet Count 315 K/uL (130-400); RDW Coefficient of Variation 13.8 % (11.5-14.5); RDW Standard Deviation 44.4 fL (36.4-46.3); Red Blood Count 5.12 M/uL (4.7-6.1); White Blood Count 9.76 K/uL (4.8-10.8)
[2018-06-03] MEDS: LEVALBUTEROL HCL 0.63 MG/3 ML NEB NEB SCH ×2 (06:58→14:04)
[2018-06-03] MEDS: IPRATROPIUM BROMIDE NEB SOLN 0.02% 2.5 ML VIAL INH SCH ×2 (06:59→14:04)
[2018-06-03] MEDS: FORMOTEROL 20 MCG/2 ML VIAL INH SCH (06:59)
[2018-06-03 07:21] LABS: BUN Creatinine Ratio 27.6 (10-20); Calcium 8.2 mg/dl (8.5-10.1); Est GFR (African American) 70.5; Est GFR (Non-African American) 60.8; Potassium 4.3 mmol/L (3.5-5.1)
[2018-06-03] MEDS: LISINOPRIL 5 MG TAB PO SCH (08:53)
[2018-06-03] MEDS: AZITHROMYCIN 250 MG TAB PO SCH (08:53)
[2018-06-03] MEDS: guaiFENesin 600 MG TABCR PO SCH (08:53)
[2018-06-03] MEDS: methylPREDNISolone 40 MG in SYRINGE 0 ML IV SCH (08:53)
[2018-06-03] MEDS: ASPIRIN 325 MG ECTAB PO SCH (08:54)
--- NOTE | 2018-06-03 11:05 | Cardiology Progress Note ---
Date of Service June 03, 2018 Assessment & Plan (1) CHF (congestive heart failure): His breathing continues to improve. Left ventricular pressures measured yesterday were on the lower side. He appears to be well compensated and has affected a good diuresis. I do not believe he requires a daily diuretic dose leaving the hospital. He will need to monitor his weight and sodium intake. (2) Cardiomyopathy: His cardiomyopathy appears to be nonischemic based on yesterday's angiography. He is currently on an Dillan inhibitor and I will start him on a beta -kathy today. He will need to take a daily baby aspirin as well. He should be started on high-dose atorvastatin based on the results of his angiography yesterday demonstrating some element of coronary disease. (3) Elevated troponin: No acute coronary syndrome. No severe coronary disease. No need for coronary intervention. Angiography yesterday did not reveal any evidence of acute coronary syndrome. He did have some chronic occlusion involving the right coronary artery and nonobstructive disease involving the left coronary system. (4) Coronary artery disease: He has mild coronary artery disease. He is not symptomatic relative to his coronary disease. His cardiomyopathy is not related to chronic ischemia. However, he should take a daily baby aspirin and be placed on high-dose atorvastatin. Present on Admission?: Yes Subjective This morning patient claims to be feeling well. He still has a cough productive of scant sputum. However, his breathing overall seems to be improved. He slipped only slightly upright last night. He has no pain at his access site. No chest pain. No dizziness. Physical Exam 2 Vital Signs (Past 24 Hours): Last Vital Signs Temp 36.5 C 06/03/18 07:04 Pulse 89 06/03/18 08:00 Resp 18 06/03/18 07:04 BP 127/82 06/03/18 07:04 Pulse Ox 94 06/03/18 07:04 Physical Exam: The patient is alert and oriented. Mood and affect appeared normal. He answered all questions appropriately. HEENT: Pupils are equal and reactive to light and accommodation. Extraocular movements are intact. The sclerae are anicteric. Neuro: Cranial nerves intact Lungs: Reduced excursion. Distant breath sounds. No rales. No expiratory wheezing. Cardiac: Heart demonstrates a regular rate and rhythm. Normal S1 and S2. No murmurs on examination. Pulses: The patient has palpable radial pulses bilaterally that are equal in intensity. His right hand is warm and well perfused. Extremities: There was no evidence of hypoperfusion. There is no cyanosis or clubbing. There is no edema. Skin: I did not appreciate any rashes on examination today. Results & Data Laboratory Results Abnormal Lab Results 06/03/18 06/03/18 06:13 06:13 WBC 9.76 RBC 5.12 Hgb 15.2 Hct 44.7 MCV 87.3 MCH 29.7 MCHC 34.0 RDW Std Deviation 44.4 RDW Coeff of Blayne 13.8 Plt Count 315 MPV 9.6 Sodium 132 L Potassium 4.3 Chloride 96 L Carbon Dioxide 29 Anion Gap 7.0 BUN 34 H Creatinine 1.23 Est Cr Clr Drug Dosing 47.0 Est GFR ( Amer) 70.5 Est GFR (Non-Af Amer) 60.8 BUN/Creatinine Ratio 27.6 H Glucose 109 H Calcium 8.2 L NT-Pro-B Natriuret Pep 1641 H
[2018-06-03] MEDS ORDERED: METOPROLOL SUCC 25MG EXT REL TAB PO SCH (11:15)
[2018-06-03] MEDS: ENOXAPARIN INJ 40 MG/0.4 ML SYR SQ SCH (11:28)
[2018-06-03 12:14] VITALS: BP 143/88; TEMP 97.3
[2018-06-03 14:05] VITALS: O2SAT 94
[2018-06-03 14:58] VITALS: PULSE 99
--- NOTE | 2018-06-04 13:20 | Operative Report ---
Post Operative Report Pre & Post Diagnosis Operation Date: 06/02/18 12:00 <No data on this case meets the specified criteria> Procedure Operation Date: 06/02/18 12:00 Actual Procedures p Cath, Left with Cors and Vent - Eleazar Schofield MD s Cineradiography w/Routine Exam - Eleazar Schofield MD Surgeon Grupo Schofield MD I attest to the content of the Intraoperative Record and any orders documented therein. Any exceptions are noted below.
--- NOTE | 2018-06-04 13:20 | Discharge Summary ---
Date of Service June 03, 2018 Admission HPI Per Admitting Provider Patient presents with few days of progressive dyspnea on exertion. He was short of breath just walking across the room in his home. He was so short of breath he could not eat or drink appropriately. He did quit smoking almost a year ago. He said no fevers or chills. He has a nonproductive cough. He presented was markedly hypoxic requiring positive pressure ventilation and attempts at weaning him in the ER not been successful. The patient was given intravenous steroids and inhaled medications but remains profoundly hypoxic with acute respiratory failure Principal Diagnosis COPD exacerbation/acute systolic heart failure Discharge Exam The patient appeared chronic changes of COPD barrel chested Vital signs as documented. No longer tachypnic. Head exam is unremarkable. normocephalic, atraumatic Neck is without jugular venous distension, thyromegaly, or lymphademopathy Lungs are clear in all lung chow no wheezes, no rales. Cardiac exam reveals Rhythm is regular. First and second heart sounds normal. Abdominal exam reveals normal bowel sounds, no masses, no organomegaly Extremities are nonedematous and both pedal pulses are present Neurologic exam is A&Ox3, no focal deficits, strength is equal bilateral Psychologically seems neither anxious or depressed Skin is warm Dry without bruises or lesions Discharge Data Allergies Allergy/AdvReac Type Severity Reaction Status Date / Time Penicillins Allergy Unknown Verified 02/25/17 13:52 Consultations 05/28/18 06:07 ED Decision to Admit Stat 05/28/18 09:28 Consult Case Management - Discharge Planning Routine 05/29/18 13:47 Consult Lung Nodule Program Routine 05/30/18 13:38 Consult Pulmonology Routine 05/31/18 14:33 Consult Cardiology Routine Procedures Performed Operation Date: 06/02/18 12:00 Actual Procedures p Cath, Left with Cors and Vent - Eleazar Schofield MD s Cineradiography w/Routine Exam - Eleazar Schofield MD Ordered Studies 05/28/18 04:41 CT angio chest PE protocol Stat 06/02/18 14:54 CL Cath Imgs for PACS use only Routine Hospital Course (1) COPD (chronic obstructive pulmonary disease): Chronic obstructive pulmonary disease with (acute) exacerbation Acute respiratory failure with hypoxia Patient has severe COPD by clinical examination, Solu-Medrol 40 every 12, duo nebs, formoterol, and azithromycin for for bronchitis. Will continue mucinex. Will consult pulmonary. Patient has orthopnea and rales, looks like patient may have acute congestive heart failure. Placed patient on diuretic. Ordered echocardiogram. It confirmed acute systolic congestive heart failure. EF though is very low. Patient does have risk factors for ischemic cardiomyopathy but wall motion does not look like a localized defect in motion. Patient required diuretics during hospital stay. However he does not require them on discharge. Cardiac Cath is negative. (2) Elevated troponin: Myocardial demand ischemia Mild rise and now drop this patient does not have acute coronary syndrome does have supply demand mismatch from his profound hypoxia. Cardiac cath was negative. (3) DVT prophylaxis: Enoxaparin subcutaneously (4) Acute renal failure: Acute kidney failure, POA, resolved (5) Pulmonary nodule: Will be in the pulmonary nodule program for appropriate follow-up Total Time Total Time Spent Total Time Spent (In Minutes): 32 Total Time Includes: Examination of the Patient, Discharge Planning and Medication Reconciliation Discharge Plan Discharge Items Patient Disposition: Home - Self-Care Reason For Visit: ACUTE RESPIRATORY FAILURE WITH HYPOXIA Discharge Diagnosis: Acute Respiratory Failure with Hypoxia Discharge Goals: Decrease discomfort Activity: Resume your previous activity Non-emergency contact: Primary Care Provider, [employer] Supervisor and Communications Programmer Call non-emergency contact if: you have any medication questions Diet: Low Sodium (2gm) Addtl Provider Instructions: You were diagnosed with Heart failure and COPD. You will need to quit smoking. In regards to the advair, take this everyday twice a day. Rinse your mouth after use. You will also be on prednisone taper. You will f/u with heart failure clinic. Call 911 and go to the Emergency Room if: * You have tightness or pain in your chest that does not go away with rest or Nitroglycerin * You are very short of breath even with rest Call your doctor if any of the following symptoms or problems start or get worse: * Shortness of breath or difficulty breathing * Wake up at night short of breath * Chest pain * Cough * Swelling of your hands, fee, or legs * More fatigued or tired with your normal activity * Palpitations - sudden fast heart beats WEIGHT * Weigh yourself every morning after using the bathroom. * Use the same scale. * Wear the same amount of clothing. * Write your weight down on your chart. * Call your doctor if you gain more than 2-3 pounds in 1-2 days. MEDICATIONS * Use this discharge instruction sheet for instructions. * Take your medications at the time your doctor ordered. * Do not skip a dose of your medicines. * If you miss a dose of medicine, take as soon as possible, but DO NOT DOUBLE A DOSE. * Read your medicine information when you get home. * Know all of the side effects of your medicine. * Call your doctor's office if you have any side effects. * Be sure all of your doctors know what medicine and herbs you take (including cold, flu, and herbal medicine). * Pain Medicine: If you do not get relief from your pain, please call your doctor for help. Take the following with you to your follow-up doctor appointments: * Weight Chart * Medication List * List of questions Do not drink excessive alcohol, beer or wine. Prescriptions: New fluticasone-salmeterol [Advair Diskus] 250-50 mcg/dose blister with device 1 inha INH BID Qty: 60 RF: 0 lisinopril [Zestril] 5 mg Tablet 5 mg PO QAM Qty: 30 RF: 0 metoprolol succinate 25 mg Tablet Extended Release 24 Hr 25 mg PO QAM Qty: 30 RF: 0 aspirin 81 mg tablet,delayed release (DR/EC) 81 mg PO DAILY Qty: 30 RF: 0 prednisone 10 mg tablet 10 mg PO UD Qty: 20 RF: 0 Continue albuterol sulfate 90 mcg/actuation HFA aerosol inhaler 2 puff Inhalation Q4 PRN (Reason: Shortness Of Breath Or Wheezing) RF: 0 Stand-Alone Forms: [facility] [employer] [facility]/Other Patient Handouts: Metoprolol Tartrate Oral tablet, Heart Failure Discharge Orders: Discharge Order (Routine); Ordered 06/03/18 Ordered By: Cj Roca Admission Data Admit Date/Time: 05/28/18 07:25 Attending Provider: Cj Roca Admit Provider: Ozzy Dukes Primary Care Provider: Jessica Duarte Other Providers: Gaudencio Coreas ; Eleazar Schofield Service: Telemetry Other Interventions: Discharge Summary Assessment (RN) Last Done: 06/03/18 14:57 DC Date/Time DO NOT enter until pt leaves facility: 06/03/18 16:16
--- NOTE | 2018-06-28 14:25 | Cardiac Catheterization ---
Date of Service June 02, 2018 Cardiac Cath Report Cardiac Cath Report Procedure performed: Coronary angiography, left heart catheterization Staff rack carrier: Grupo Schofield MD Indication: The patient is a 68-year-old gentleman with a new admission for dyspnea. He was noted on echocardiography to have severely reduced LV systolic function. He also had elevated cardiac biomarkers. Based on this information is felt to be a good candidate for coronary angiography. Procedure in detail: The patient was informed of the risks benefits and alternatives to the intended procedure, he understood such and wished to proceed. He was taken to the cardiac catheterization suite in a fasting state. Conscious sedation was administered per protocol and the patient was monitored electrocardiographically throughout today's procedure. The right wrist area was prepped and draped in usual sterile fashion. This area was anesthetized using subcutaneous administration of a lidocaine solution. The right radial artery was then accessed using Seldinger technique, and a arterial sheath was placed at this site over a guidewire. The sheath was used to facilitate passage of the cardiac catheter for coronary angiography and left heart catheterization. Coronary angiogram was then obtained in multiple orthogonal views prior to removal of the catheter. At the conclusion of the procedure the sheath was removed and hemostasis was achieved at the access site using manual pressure. The patient tolerated procedure well, there were no immediate complications. Findings: Opening aortic pressure: 85/60 mmHg Closing aortic pressure: 76/53 mmHg Left ventricular pressure: 84 over 0 mmHg Left ventricular end-diastolic pressure: 5 mmHg Coronary angiography: Left main coronary artery was normal in size and caliber. It bifurcated normally into left anterior descending and left circumflex artery. No obstructive disease Left anterior descending: Left anterior descending was a large transapical vessel which produced a first medium size diagonal branch and 2 smaller diagonal branches. There is approximately 40-50% stenosis at the ostium of D1. No other obstructive disease noted Left circumflex artery: This was a nondominant vessel which produce a very large first OM branch and a smaller bifurcating second OM branch. Is no obstructive disease in this distribution Right coronary: This was a dominant vessel which was occluded in its midportion. The distal vessel filled via collaterals from the left-sided vessels. Impression: Chronic occlusion involving the right coronary artery with filling of the distal vessel via left to right collaterals Nonobstructive disease in the remaining distributions
== END 2018-06-03 16:16 | disposition home or self-care (01) | DRG 190 ==
LOC: ED 02:56 → 2N 07:25 → SUATTDRO 07:25 → 2N 08:30 → 2S 06-02 16:26
DX: I24.8 Other forms of acute ischemic heart disease; Z87.891 Personal history of nicotine dependence; R91.1 Solitary pulmonary nodule; N17.9 Acute kidney failure, unspecified; J44.1 Chronic obstructive pulmonary disease with (acute) exacerbation; I50.21 Acute systolic (congestive) heart failure; J96.21 Acute and chronic respiratory failure with hypoxia

== ENCOUNTER 2022-04-28 20:05 | Inpatient (IN) ==
[2022-04-28] MEDS ORDERED: BENZONATATE 100 MG CAPSULE PO ONE (20:20)
[2022-04-28] MEDS ORDERED: ALBUTEROL 0.083% NEBU SOLN 3 ML VIAL NEB STA (20:20)
--- NOTE | 2022-04-28 20:23 | Emergency Department Note ---
Impression & Plan Breath shortness, FERDINAND (acute kidney injury), Elevated troponin, Influenza A ED Provider Note NAME: NADINE FITZPATRICK AGE: 71 SEX: M : 1950 ARRIVES VIA: Ambulance INFORMANT: Patient ED PROVIDER(S): Mayco Wheeler DO CHIEF COMPLAINT: shortness of breath HPI: Patient is a 71-year-old male with a past medical history of hypertension, hyperlipidemia, CHF, COPD, CAD that presents to the ER for shortness of breath which has been present for the past 4 days associated with a yellow productive cough. Shortness of breath has been getting worse. He denies any chest pain. No belly pain, nausea, vomiting, or diarrhea. He notes several days ago he did have some left shoulder pain which lasted for about an hour but nothing in his chest. He was seen and evaluated at [facility] and referred over. He refuses steroids as he notes he cannot take them. ROS: See above HPI for pertinent positives & negatives. A total of 10 systems reviewed and were otherwise negative. PAST MEDICAL HISTORY:See Below PAST SURGICAL HISTORY:See Below FAMILY HISTORY:See Below SOCIAL HISTORY:See Below HOME MEDICATIONS:See Below ALLERGIES:See Below VITALS:See Below PHYSICAL EXAMINATION: GENERAL: Sitting up in bed, alert, chronically ill-appearing, persistent cough EYE EXAM: normal conjunctiva. OROPHARYNX: no exudate, no erythema, lips, buccal mucosa, and tongue normal and mucous membranes are moist NECK: supple, no nuchal rigidity, no adenopathy, non-tender LUNGS: Poor air movement with diffuse wheezing. Normal chest wall mechanics HEART: no murmurs, S1 normal and S2 normal ABDOMEN: abdomen soft, non-tender, normo-active bowel sounds, no masses, no rebound or guarding. UPPER EXTREMITIES: upper extremities are grossly normal. LOWER EXTREMITIES: No pitting edema. NEURO EXAM: Normal sensorium, cranial nerves II-XII grossly intact, normal speech, no gross weakness of arms, no gross weakness of legs. MEDICAL DECISION MAKING: Patient is a 71-year-old male who presents the ER for shortness of breath. He admits to upper respiratory symptoms which have been present for the past 3 to 4 days. IV was established blood work was obtained. Upon presentation he was given hour-long neb treatment. Declined steroids. Labs show no significant leukocytosis or anemia. BMP with a creatinine of 1.88 up from baseline of 0.9. LFTs bilirubin was unremarkable. Lipase was normal. Troponin was elevated. COVID was negative. Influenza was positive. Chest x-ray without any focal infiltrate. He was updated bedside discussed with hospitalist admitted for further work-up. Discussed with Pt concerning signs and symptoms to watch out for. Pt was instructed to follow up with their PCP and discussed with the patient their option to return to the ED at anytime for persistent or worsening symptoms. The appropriate anticipatory guidance and out-patient management, including indications for return to the emergency department, were explained at length to the patient and understood. Triage Nursing notes reviewed. Limited review of prior medical records performed Vital Signs: reviewed and remarkable for no significant abnormalities Differential diagnosis: Differential diagnoses includes but is not limited to pneumonia, bronchitis, COPD/Asthma exacerbation, pneumothorax, pulmonary embolism, congestive heart failure, acute coronary syndrome ER treatment provided: See below Diagnostics interpreted by me: ECG: Sinus rhythm rate 81 Normal axis T wave inversions in the inferior leads PVC Poor baseline Nonspecific ST wave changes in the lateral leads ST wave changes are new from previous back in 2019 Cardiac Monitoring: An order was placed for continuous cardiac monitoring. The monitor shows a rate of 80 with sinus rhythm. Laboratory studies: As stated above and show below. Imaging studies: Portable AP upright 1 view of the chest unremarkable Consultation(s): none Procedures: none Critical Care: None Past Med/Surg History Medical History (Updated 04/29/22 @ 01:02 by Mayco Wheeler DO) Cardiomyopathy FOLLOWS WITH DR. FOUNTAIN severely reduced LV function Coronary artery disease Chronically occluded right coronary artery, 05/2018 Current smoker on some days Degenerative disc disease Elevated troponin History of tobacco abuse Hyperlipidemia Left inguinal hernia Myocardial Infarction ? EVENT (OVER 30 YEARS AGO) Pulmonary nodule Surgical History History of colonoscopy History of herniorrhaphy RT INGUINAL History of tooth extraction Hx of elbow surgery RT ULNAR NERVE REPAIRED Hx of vasectomy S/P left inguinal hernia repair (02/15/19) Left Open Inguinal Hernia Repair Dr. Rogers 02/15/19 Family History Unknown Hypertension Other Family history non-contributory Past medical history not known due to adoption Denies family history of Ovarian cancer Prostate cancer Myocardial infarction Breast cancer Colorectal cancer Social History Smoking Status: Current every day smoker Tobacco Type: Cigarettes Cigarettes Per Day: 5-6 cigarettes a day; Second Hand Exposure: No; Hx Alcohol Use: Yes Alcohol type: beer and hard liquor Alcohol Intake Frequency: Monthly or Less Hx Substance Use: No Preferred Language: Brazilian Communication Ability: Effective Equities Analyst Required: No Beliefs That Will Affect Care: None marital status: Single Current Living Situation: Alone current occupational status: retired Feels Safe at Home: Yes caffeine: Yes Dental Care, Regularly: No Physical Activity Frequency: Daily Seatbelt Use: always Sunscreen Use: No Assistive Devices: Denture - Upper and Glasses Allergies Allergies Allergy/AdvReac Type Severity Reaction Status Date / Time methylprednisolone Allergy Severe THROAT Verified 04/28/22 20:37 [From Solu-Medrol] CLOSES Penicillins Allergy Intermediate muscle Verified 04/28/22 20:37 spasms Home Meds Home Medications Medication Instructions Recorded Confirmed aspirin 81 mg tablet,delayed 81 mg PO QAM 12/29/18 04/28/22 release Previous Rx's Medication Instructions Recorded albuterol sulfate 90 mcg/actuation 2 puff inhalation Q6H PRN 08/18/21 aerosol inhaler Shortness Of Breath Or Wheezing #18 grams lisinopril 20 mg tablet 20 mg PO DAILY #90 tabs 08/18/21 metoprolol succinate 50 mg 50 mg PO QAM #90 tabs 08/18/21 tablet,extended release 24 hr umeclidinium 62.5 mcg-vilanterol 1 inh inhalation Q24H #60 ea 02/13/22 25 mcg/actuation powdr for inhalation (Anoro Ellipta) Results & Data (ED) Vital Signs Vital Signs - 24 hr 04/28/22 20:15 04/28/22 20:18 04/28/22 20:34 Temperature 37.1 C Temperature Source Oral Pulse Rate 84 Pulse Rate from SpO2 Sensor Pulse Rhythm Regular Pulse Strength Normal Respiratory Rate 20 Respiratory Effort / Characteristics Non-Labored Spontaneous Non-Labored Respiratory Depth Normal Normal Respiratory Pattern Regular Regular Blood Pressure 128/87 Blood Pressure Mean 100 Blood Pressure Position Sitting Pulse Oximetry 95 95 Oxygen Delivery Method Room Air Room Air Room Air Oxygen Flow Rate Sepsis Recent Fever Within 48 Hours No Sepsis New/Unexplained Change in Mental Status No Sepsis Action Taken by Nursing No Action Required 04/28/22 20:19 04/28/22 20:20 04/28/22 20:30 Temperature Temperature Source Pulse Rate 86 86 Pulse Rate from SpO2 Sensor 85 79 Pulse Rhythm Pulse Strength Respiratory Rate 18 19 Respiratory Effort / Characteristics Respiratory Depth Respiratory Pattern Blood Pressure 134/92 Blood Pressure Mean 106 Blood Pressure Position Pulse Oximetry 95 95 Oxygen Delivery Method Oxygen Flow Rate Sepsis Recent Fever Within 48 Hours Sepsis New/Unexplained Change in Mental Status Sepsis Action Taken by Nursing 04/28/22 20:30 04/28/22 20:40 04/28/22 20:50 Temperature Temperature Source Pulse Rate 91 H 81 77 Pulse Rate from SpO2 Sensor 87 77 75 Pulse Rhythm Pulse Strength Respiratory Rate 17 20 12 Respiratory Effort / Characteristics Respiratory Depth Respiratory Pattern Blood Pressure Blood Pressure Mean Blood Pressure Position Pulse Oximetry 93 99 99 Oxygen Delivery Method Oxygen Flow Rate Sepsis Recent Fever Within 48 Hours Sepsis New/Unexplained Change in Mental Status Sepsis Action Taken by Nursing 04/28/22 21:00 04/28/22 21:01 04/28/22 21:01 Temperature Temperature Source Pulse Rate 78 75 Pulse Rate from SpO2 Sensor 88 75 Pulse Rhythm Pulse Strength Respiratory Rate 23 13 Respiratory Effort / Characteristics Respiratory Depth Respiratory Pattern Blood Pressure 114/55 L Blood Pressure Mean 74 Blood Pressure Position Pulse Oximetry 64 L 99 Oxygen Delivery Method Oxygen Flow Rate Sepsis Recent Fever Within 48 Hours Sepsis New/Unexplained Change in Mental Status Sepsis Action Taken by Nursing 04/28/22 21:10 04/28/22 21:20 04/28/22 21:30 Temperature Temperature Source Pulse Rate 77 81 Pulse Rate from SpO2 Sensor 75 74 Pulse Rhythm Pulse Strength Respiratory Rate 15 23 Respiratory Effort / Characteristics Respiratory Depth Respiratory Pattern Blood Pressure 114/77 Blood Pressure Mean 89 Blood Pressure Position Pulse Oximetry 100 100 Oxygen Delivery Method Oxygen Flow Rate Sepsis Recent Fever Within 48 Hours Sepsis New/Unexplained Change in Mental Status Sepsis Action Taken by Nursing 04/28/22 21:30 04/28/22 21:40 04/28/22 21:50 Temperature Temperature Source Pulse Rate 76 91 H 76 Pulse Rate from SpO2 Sensor 76 73 77 Pulse Rhythm Pulse Strength Respiratory Rate 13 17 12 Respiratory Effort / Characteristics Respiratory Depth Respiratory Pattern Blood Pressure Blood Pressure Mean Blood Pressure Position Pulse Oximetry 100 99 98 Oxygen Delivery Method Oxygen Flow Rate Sepsis Recent Fever Within 48 Hours Sepsis New/Unexplained Change in Mental Status Sepsis Action Taken by Nursing 04/28/22 22:00 04/28/22 22:00 04/28/22 22:10 Temperature Temperature Source Pulse Rate 88 81 Pulse Rate from SpO2 Sensor 71 77 Pulse Rhythm Pulse Strength Respiratory Rate 17 10 L Respiratory Effort / Characteristics Respiratory Depth Respiratory Pattern Blood Pressure 131/79 Blood Pressure Mean 96 Blood Pressure Position Pulse Oximetry 99 99 Oxygen Delivery Method Oxygen Flow Rate Sepsis Recent Fever Within 48 Hours Sepsis New/Unexplained Change in Mental Status Sepsis Action Taken by Nursing 04/28/22 22:20 04/28/22 22:30 04/28/22 22:31 Temperature Temperature Source Pulse Rate 111 H 100 H Pulse Rate from SpO2 Sensor 113 H 88 Pulse Rhythm Pulse Strength Respiratory Rate 20 17 Respiratory Effort / Characteristics Respiratory Depth Respiratory Pattern Blood Pressure 129/78 Blood Pressure Mean 95 Blood Pressure Position Pulse Oximetry 94 94 Oxygen Delivery Method Oxygen Flow Rate Sepsis Recent Fever Within 48 Hours Sepsis New/Unexplained Change in Mental Status Sepsis Action Taken by Nursing 04/28/22 22:31 Temperature Temperature Source Pulse Rate 101 H Pulse Rate from SpO2 Sensor 79 Pulse Rhythm Pulse Strength Respiratory Rate 20 Respiratory Effort / Characteristics Respiratory Depth Respiratory Pattern Blood Pressure Blood Pressure Mean Blood Pressure Position Pulse Oximetry 97 Oxygen Delivery Method Nasal Cannula Oxygen Flow Rate 2 Sepsis Recent Fever Within 48 Hours Sepsis New/Unexplained Change in Mental Status Sepsis Action Taken by Nursing Laboratory Data Result diagrams: 04/28/22 20:23 04/28/22 20:23 Lab Results 04/28/22 04/28/22 04/28/22 Range/Units 20:23 20:23 20:28 WBC 5.44 (4.8-10.8) K/ul RBC 4.82 (4.63-6.08) M/uL Hgb 14.0 (14.0-18.0) g/dl Hct 42.2 (40.1-51.0) % MCV 87.6 (80.0-100.0) fL MCH 29.0 (25.0-34.0) pg MCHC 33.2 (32.0-36.0) g/dL RDW Std Deviation 44.6 (36.4-46.3) fL RDW Coeff of Blayne 13.9 (11.5-14.5) % Plt Count 230 (130-400) K/uL MPV 9.3 L (9.4-12.4) fL Immature Gran % (Auto) 0.4 % Neut % (Auto) 61.4 % Lymph % (Auto) 20.2 % [place] % (Auto) 17.6 % Eos % (Auto) 0.2 % Baso % (Auto) 0.2 % Neut # (Auto) 3.34 (1.4-6.5) K/uL Lymph # (Auto) 1.10 L (1.2-3.4) K/uL [place] # (Auto) 0.96 H (0.24-0.82) K/uL Eos # (Auto) 0.01 (0-0.50) K/uL Baso # (Auto) 0.01 (0-0.2) K/uL Immature Gran # (Auto) 0.02 (0.00-0.02) K/uL Sodium 134 L (136-145) mmol/L Potassium 3.9 (3.5-5.1) mmol/L Chloride 99 (98-107) mmol/L Carbon Dioxide 26 (21-32) mmol/L Anion Gap 9 (3-11) BUN 44 H (6-23) mg/dl Creatinine 1.88 H (0.6-1.4) mg/dl Est Cr Clr Drug Dosing Not Reportable Est GFR ( Amer) 41.3 ml/min Est GFR (Non-Af Amer) 35.6 ml/min BUN/Creatinine Ratio 23.4 H (10-20) Glucose 111 H (70-99(Fasting)) mg/dl Calcium 8.7 (8.5-10.1) mg/dl Total Bilirubin 0.4 (0.2-1.0) mg/dl AST 50 H (13-39) U/L ALT 18 (7-52) U/L Alkaline Phosphatase 68 (34-104) U/L Troponin I High Sens 38.0 H (0-20) pg/ml Total Protein 6.6 (6.0-8.3) gm/dl Albumin 3.9 (3.4-5.0) gm/dl Globulin 2.7 (2.5-4.0) gm/dl Albumin/Globulin Ratio 1.4 (0.9-2) Lipase 25 (11-82) U/L SARS-CoV-2 (PCR) NEGATIVE (Negative) Influenza Type A (PCR) Positive A* (Neg) Influenza Type B (PCR) Negative (Neg) RSV (RT-PCR) Negative (Neg) Administered Medications Discontinued Medications Albuterol (Albuterol 0.083% Nebu Soln 3 Ml Vial) 10 mg NEB NOW STA; Protocol Stop: 04/28/22 20:21 Last Admin: 04/28/22 20:27 Dose: 10 mg Documented By: ALEXA Benzonatate (Benzonatate 100 Mg Capsule) 100 mg PO NOW ONE Stop: 04/28/22 20:21 Last Admin: 04/28/22 20:26 Dose: 100 mg Documented By: ALEXA Imaging Data Radiologist's Impression: Chest X-Ray 04/28/22 20:09 XR chest 1V portable CLINICAL HISTORY: Chest pain, nonspecific TECHNIQUE: Single frontal radiograph of the chest was obtained. Comparison: Comparison is made to chest radiographs 10/31/2021 FINDINGS: No lines and tubes are seen. Calcified aortic knob is seen. The lungs are clear. No evidence of pleural effusion or pneumothorax. IMPRESSION: No acute chest disease. ACT 112: Negative or not required by law. Electronically signed by: Latrell Motley M.D. 04/28/2022 8:50 PM Discharge Plan Visit Data Chief Complaint: Shortness of Breath/Dyspnea Stated Complaint: SOB ED Provider: Mayco Wheeler Discharge Problem: Breath shortness, FERDINAND (acute kidney injury), Elevated troponin, Influenza A Forms Stand Alone Forms: My [facility] Heart Valve Prescriptions Prescriptions: No Action albuterol sulfate 90 mcg/actuation HFA aerosol inhaler 2 puff Inhalation Q6H PRN (Reason: Shortness Of Breath Or Wheezing) Qty: 18 5RF lisinopril 20 mg tablet 20 mg PO DAILY Qty: 90 3RF metoprolol succinate 50 mg tablet extended release 24 hr 50 mg PO QAM Qty: 90 3RF Anoro Ellipta 62.5-25 mcg/actuation blister with device 1 inh INH Q24H Qty: 60 11RF aspirin 81 mg tablet,delayed release (DR/EC) 81 mg PO QAM Referrals Referrals: Jessica Duarte CRNP [Primary Care Provider] -
[2022-04-28 20:28] LABS: Basophils # (auto) 0.01 K/uL (0-0.2); Basophils % (auto) 0.2 %; Eosinophils # (auto) 0.01 K/uL (0-0.50); Eosinophils % (auto) 0.2 %; Hematocrit (blood only) 42.2 % (40.1-51.0); Immature Granulocytes # (auto) 0.02 K/uL (0.00-0.02); Immature Granulocytes % (auto) 0.4 %; Lymphocytes % (auto) 20.2 %; Mean Corpuscular Hgb Conc 33.2 g/dL (32.0-36.0); Mean Corpuscular Volume 87.6 fL (80.0-100.0); Mean Platelet Volume 9.3 fL (9.4-12.4); Monocytes # (auto) 0.96 K/uL (0.24-0.82); Monocytes % (auto) 17.6 %; Neutrophils # (auto) 3.34 K/uL (1.4-6.5); Neutrophils % (auto) 61.4 %; Platelet Count 230 K/uL (130-400); RDW Coefficient of Variation 13.9 % (11.5-14.5); RDW Standard Deviation 44.6 fL (36.4-46.3); Red Blood Count 4.82 M/uL (4.63-6.08); White Blood Count 5.44 K/ul (4.8-10.8)
[2022-04-28 20:50] LABS: Alanine Aminotransferase 18 U/L (7-52); Albumin Globulin Ratio 1.4 (0.9-2); Albumin Level 3.9 gm/dl (3.4-5.0); Alkaline Phosphatase 68 U/L (34-104); Anion Gap 9 (3-11); Aspartate Aminotransferase 50 U/L (13-39); BUN Creatinine Ratio 23.4 (10-20); Bilirubin,Total 0.4 mg/dl (0.2-1.0); Blood Urea Nitrogen 44 mg/dl (6-23); Calcium 8.7 mg/dl (8.5-10.1); Carbon Dioxide 26 mmol/L (21-32); Chloride 99 mmol/L (98-107); Est GFR (African American) 41.3 ml/min; Est GFR (Non-African American) 35.6 ml/min; Globulin 2.7 gm/dl (2.5-4.0); Glucose 111 mg/dl (70-99(Fasting)); Lipase 25 U/L (11-82); Potassium 3.9 mmol/L (3.5-5.1); Sodium 134 mmol/L (136-145); Total Protein 6.6 gm/dl (6.0-8.3)
--- NOTE | 2022-04-28 20:51 | XRay Report ---
XR chest 1V portable CLINICAL HISTORY: Chest pain, nonspecific TECHNIQUE: Single frontal radiograph of the chest was obtained. Comparison: Comparison is made to chest radiographs 10/31/2021 FINDINGS: No lines and tubes are seen. Calcified aortic knob is seen. The lungs are clear. No evidence of pleur al effusion or pneumothorax. IMPRESSION: No acute chest disease. ACT 112: Negative or not required by law. Electronically signed by: Latrell Motley M.D. 04/28/2022 8:50 PM
[2022-04-28 21:20] LABS: Influenza B virus by PCR Negative (Neg); RSV by PCR Negative (Neg); SARS CoV2 RNA(COVID-19) Ceph NEGATIVE (Negative)
[2022-04-28 21:33] LABS: Influenza A virus by PCR Positive (Neg)
[2022-04-29] MEDS: AZITHROMYCIN 500 MG in DEXTROSE 5% 250 ML IV SCH (01:23)
[2022-04-29] MEDS: BENZONATATE 100 MG CAPSULE PO PRN ×2 (01:56→21:19)
[2022-04-29] MEDS: ALBUTEROL HFA 8 GM INHALER INH PRN (01:57)
--- NOTE | 2022-04-29 08:14 | History & Physical Report ---
Date of Service April 29, 2022 Assessment & Plan (1) Influenza A: Plan: pt presents with sob and is influenza positive reports myalgias and fatigue start tamiflu i/o monitor and supportive therapy (2) FERDINAND (acute kidney injury): Plan: pt has ferdinand with cr elevated to 1.8 likely sec to poor po intake iv fluids hold nsaids and reagan inhibitor (3) Elevated troponin: Plan: trend HS troponin level pt denies chest pain elevation in serum creatinine likely interfering with trop elevation (4) Breath shortness: Plan: likley sec to influenza/ pt also has h/o copd continue supplemental oxygen and pulse oximetry monitoring pt refuses steroids in ED (5) COPD with emphysema: Plan: oxygen supplementation duoneb prn p refuses iv steroids Admission and Anticipated Discharge Date Admission Date: April 29, 2022 History of Present Illness Chief Complaint: pt presents to ED with complaints of shortness of breath Patient is a 71-year-old male with a past medical history of hypertension, hyperlipidemia, CHF, COPD, CAD that presents to the ER for shortness of breath 4 days duration associated with a yellow productive cough. pt reports worsening of Shortness of breath but denies any chest pain. No nausea, vomiting, or diarrhea reported . no palpitations reported. Primary Care Provider: DEBI Henning pt presents to ED with complaints of shortness of breath Patient is a 71-year-old male with a past medical history of hypertension, hyperlipidemia, CHF, COPD, CAD that presents to the ER for shortness of breath 4 days duration associated with a yellow productive cough. pt reports worsening of Shortness of breath but denies any chest pain. No nausea, vomiting, or diarrhea reported . no palpitations reported. Allergies Allergy/AdvReac Type Severity Reaction Status Date / Time methylprednisolone Allergy Severe THROAT Verified 04/28/22 20:37 [From Solu-Medrol] CLOSES Penicillins Allergy Intermediate muscle Verified 04/28/22 20:37 spasms Home Medications Medication Instructions Recorded Confirmed Type aspirin 81 mg tablet,delayed 81 mg PO QAM 12/29/18 04/28/22 History release albuterol sulfate 90 mcg/actuation 2 puff inhalation Q6H PRN 08/18/21 04/28/22 Rx aerosol inhaler Shortness Of Breath Or Wheezing #18 grams lisinopril 20 mg tablet 20 mg PO DAILY #90 tabs 08/18/21 04/28/22 Rx metoprolol succinate 50 mg 50 mg PO QAM #90 tabs 08/18/21 04/28/22 Rx tablet,extended release 24 hr umeclidinium 62.5 mcg-vilanterol 1 inh inhalation Q24H #60 ea 02/13/22 04/28/22 Rx 25 mcg/actuation powdr for inhalation (Anoro Ellipta) Past Med/Surg History Medical History (Updated 04/29/22 @ 01:02 by Mayco Wheeler, DO) Cardiomyopathy FOLLOWS WITH DR. FOUNTAIN severely reduced LV function Coronary artery disease Chronically occluded right coronary artery, 05/2018 Current smoker on some days Degenerative disc disease Elevated troponin History of tobacco abuse Hyperlipidemia Left inguinal hernia Myocardial Infarction ? EVENT (OVER 30 YEARS AGO) Pulmonary nodule Surgical History History of colonoscopy History of herniorrhaphy RT INGUINAL History of tooth extraction Hx of elbow surgery RT ULNAR NERVE REPAIRED Hx of vasectomy S/P left inguinal hernia repair (02/15/19) Left Open Inguinal Hernia Repair Dr. Rogers 02/15/19 Family History Unknown Hypertension Other Family history non-contributory Past medical history not known due to adoption Denies family history of Ovarian cancer Prostate cancer Myocardial infarction Breast cancer Colorectal cancer Social History Smoking Status: Current every day smoker Tobacco Type: Cigarettes Cigarettes Per Day: 5-6 cigarettes a day; Second Hand Exposure: No; Hx Alcohol Use: Yes Alcohol type: beer and hard liquor Alcohol Intake Frequency: Monthly or Less Hx Substance Use: Yes Preferred Language: Setswana Communication Ability: Effective Sales Process Manager Required: No Beliefs That Will Affect Care: None marital status: Single Current Living Situation: Alone current occupational status: retired Feels Safe at Home: Yes caffeine: Yes Dental Care, Regularly: No Physical Activity Frequency: Daily Seatbelt Use: always Sunscreen Use: No Assistive Devices: Denture - Upper and Glasses Review of Systems Constitutional: as per Subjective / HPI Respiratory: + chest congestion and + dyspnea Cardiovascular: + dyspnea; no chest pain Gastrointestinal: + bloating Genitourinary: no dysuria Musculoskeletal: + myalgia Neurologic: no seizure-like activity Physical Exam Constitutional: WD/WN, vitals as above Eyes: PERRL, conjunctivae normal, anicteric sclerae Respiratory: few scattered rhonchi heard Cardiovascular: RRR, no murmur, no edema Gastrointestinal (Abdomen): normal bowel sounds, soft, nontender, no hepatosplenomegaly Musculoskeletal: no cyanosis or clubbing, extremities motor strength 5/5 Skin: no rashes, warm and dry Neurologic: PERRL, EOMI, accommodation nl, no face palsy, no dysarthria Results & Data Results & Data ([facility]) Vital Signs (Past 12 Hours) Vital Signs Temp Pulse Pulse Resp BP BP Pulse Ox 04/29/22 03:29 90 16 100/70 99 04/29/22 01:33 04/29/22 01:26 79 20 105/64 99 04/28/22 22:31 101 H 20 97 04/28/22 22:31 129/78 04/28/22 22:30 100 H 17 94 04/28/22 22:20 111 H 20 94 04/28/22 22:10 81 10 L 99 04/28/22 22:00 88 17 99 04/28/22 22:00 131/79 04/28/22 21:50 76 12 98 04/28/22 21:40 91 H 17 99 04/28/22 21:30 76 13 100 04/28/22 21:30 114/77 04/28/22 21:20 81 23 100 04/28/22 21:10 77 15 100 04/28/22 21:01 75 13 99 04/28/22 21:01 114/55 L 04/28/22 21:00 78 23 64 L 04/28/22 20:50 77 12 99 04/28/22 20:40 81 20 99 04/28/22 20:30 91 H 17 93 04/28/22 20:30 134/92 04/28/22 20:20 86 19 95 04/28/22 20:19 86 18 95 04/28/22 20:34 04/28/22 20:18 37.1 C 84 20 128/87 95 04/28/22 20:15 95 O2 Del Method O2 Flow Rate 04/29/22 03:29 Nasal Cannula 04/29/22 01:33 Nasal Cannula 3 04/29/22 01:26 Nasal Cannula 3 04/28/22 22:31 Nasal Cannula 2 04/28/22 22:31 04/28/22 22:30 04/28/22 22:20 04/28/22 22:10 04/28/22 22:00 04/28/22 22:00 04/28/22 21:50 04/28/22 21:40 04/28/22 21:30 04/28/22 21:30 04/28/22 21:20 04/28/22 21:10 04/28/22 21:01 04/28/22 21:01 04/28/22 21:00 04/28/22 20:50 04/28/22 20:40 04/28/22 20:30 04/28/22 20:30 04/28/22 20:20 04/28/22 20:19 04/28/22 20:34 Room Air 04/28/22 20:18 Room Air 04/28/22 20:15 Room Air Laboratory Results Short CBC 04/28/22 Range/Units 20:23 WBC 5.44 (4.8-10.8) K/ul Hgb 14.0 (14.0-18.0) g/dl Hct 42.2 (40.1-51.0) % Plt Count 230 (130-400) K/uL BMP 04/28/22 20:23 Sodium 134 L Potassium 3.9 Chloride 99 Carbon Dioxide 26 BUN 44 H Creatinine 1.88 H Glucose 111 H Calcium 8.7 Liver Function 04/28/22 Range/Units 20:23 Total Bilirubin 0.4 (0.2-1.0) mg/dl AST 50 H (13-39) U/L ALT 18 (7-52) U/L Alkaline Phosphatase 68 (34-104) U/L Albumin 3.9 (3.4-5.0) gm/dl Diagnostic Findings Chest X-Ray 04/28/22 20:09 XR chest 1V portable CLINICAL HISTORY: Chest pain, nonspecific TECHNIQUE: Single frontal radiograph of the chest was obtained. Comparison: Comparison is made to chest radiographs 10/31/2021 FINDINGS: No lines and tubes are seen. Calcified aortic knob is seen. The lungs are clear. No evidence of pleural effusion or pneumothorax. IMPRESSION: No acute chest disease. ACT 112: Negative or not required by law. Electronically signed by: Latrell Motley M.D. 04/28/2022 8:50 PM Code Status & VTE Plan VTE Prophylaxis Plan VTE Prophylaxis will be ordered: Yes PG Care Time/CCT Total # of Minutes Spent Total Time Spent with Patient: Total time spent is greater than 50% in coordination of care (as documented) at patient's floor/unit and/or counseling patient: Coding Level of Care Code 23294 Initial Inpt Care Lvl 2 Diagnoses Influenza A J10.1 FERDINAND (acute kidney injury) N17.9 Elevated troponin R77.8 Breath shortness R06.02 COPD with emphysema J43.9
[2022-04-29] MEDS ORDERED: ASPIRIN 81 MG ECTAB PO SCH (09:00)
[2022-04-29] MEDS ORDERED: lisinopril 20 MG TAB PO SCH (09:00)
[2022-04-29] MEDS: ASPIRIN 81 MG ECTAB PO SCH (09:33)
[2022-04-29] MEDS: UMECLIDINIUM/VILANTEROL 62.5/25MCG 7 PUFFS/INHALER INH SCH (09:33)
[2022-04-29] MEDS: METOPROLOL SUCC 50MG EXT REL TAB PO SCH (09:33)
--- NOTE | 2022-04-29 09:41 | Electrocardiogram Report ---
Test Reason : Blood Pressure : / mmHG Vent. Rate : 081 BPM Atrial Rate : 081 BPM P-R Int : 152 ms QRS Dur : 082 ms QT Int : 394 ms P-R-T Axes : 083 056 108 degrees QTc Int : 457 ms Poor data quality, interpretation may be adversely affected Sinus rhythm with occasional Premature ventricular complexes and Premature atrial complexes Abnormal ECG Confirmed by [employer] Schofield ([id number]) on 04/29/2022 9:41:32 AM Referred By: REFERRED SELF Confirmed By:Isacc Schofield
[2022-04-29] MEDS: OSELTAMIVIR PHOSPHATE SUSP 30 MG/5 ML UDP PO SCH (09:51)
[2022-04-29 10:39] LABS: Albumin Globulin Ratio 1.5 (0.9-2); Albumin Level 3.8 gm/dl (3.4-5.0); BUN Creatinine Ratio 23.5 (10-20); Bilirubin,Total 0.4 mg/dl (0.2-1.0); Calcium 8.9 mg/dl (8.5-10.1); Creatinine Clr Calc Pharmacy 27.9 ml/min; Est GFR (African American) 41.6 ml/min; Est GFR (Non-African American) 35.9 ml/min; Globulin 2.5 gm/dl (2.5-4.0); Magnesium 2.1 mg/dl (1.7-2.4); Total Protein 6.3 gm/dl (6.0-8.3)
[2022-04-29] MEDS ORDERED: SODIUM CHLORIDE 0.9% 1000ML 1,000 ML IV SCH (12:45)
--- NOTE | 2022-04-29 19:09 | Hospitalist Progress Note ---
Date of Service April 29, 2022 Assessment & Plan (1) Influenza A: Plan: Mr. Toledo is a 71 yo M with a hx of COPD here today for SOB with productive cough - tested positive for Flu A on admission - continue 5 day course of tamiflu (2) FERDINAND (acute kidney injury): Plan: - pt has ferdinand with cr elevated to 1.8 (baseline 1.1.) - serjio pre-renal due to poor po intake - iv fluids - hold nsaids and tamy inhibitor - repeat BMP in am (3) Elevated troponin: Plan: - trend HS troponin level - pt denies chest pain; EKG without ST segment changes - elevation in serum creatinine likley causing impaired clearance (4) COPD with emphysema: Plan: - complaint with home medication regimen - at risk for exacerbation in setting of flu A infection; however does not appear to be wheezing on exam - treating flu A as above - continue Azithromycin; patient refused IV steroids - mucinex - oxygen supplementation prn - duoneb prn (5) Cardiomyopathy: Plan: - history of, follows with Dr. Schofield - due to ischemic disease - continue metoprolol, ASA and TAMY - patient refuses statin and ICD placement. Also refused Farxiga Diet: Regular Dispo: Med/tele Dvt ppx: Heparin given elevated creatinine Code: Full Admission and Anticipated Discharge Date Admission Date: April 29, 2022 Subjective Feeling better - still coughing. denies any missed doses of home inhaler Review of Systems Review of Systems: All systems reviewed & are unremarkable except as noted in HPI & below Physical Exam Constitutional: WD/WN, vitals as above Eyes: + anicteric sclerae ENMT: external ear and nose normal, oropharynx normal Neck: trachea midline, no thyromegaly Respiratory: normal respiratory effort and + cough Auscultation: + rhonchi Cardiovascular: RRR, no murmur, no edema Musculoskeletal: Head/Neck/Chest: normocephalic and head atraumatic Skin: no rashes, warm and dry Neurologic: moves all extremities Psychiatric: A+Ox3, euthymic affect Results & Data Results & Data ([facility]) Vital Signs (Past 12 Hours) Vital Signs Pulse Pulse Resp BP BP Pulse Ox O2 Del Method 04/29/22 16:21 78 18 156/87 H 96 Nasal Cannula 04/29/22 12:34 76 18 138/64 96 Room Air 04/29/22 08:30 69 14 97 04/29/22 08:30 117/64 04/29/22 08:20 83 18 96 04/29/22 08:10 76 15 95 04/29/22 08:00 86 22 04/29/22 08:00 111/60 04/29/22 07:50 77 15 94 04/29/22 07:40 71 14 95 04/29/22 07:30 76 15 93 04/29/22 07:30 126/62 04/29/22 07:20 77 15 92 04/29/22 07:10 72 15 93 O2 Flow Rate 04/29/22 16:21 2 04/29/22 12:34 04/29/22 08:30 04/29/22 08:30 04/29/22 08:20 04/29/22 08:10 04/29/22 08:00 04/29/22 08:00 04/29/22 07:50 04/29/22 07:40 04/29/22 07:30 04/29/22 07:30 04/29/22 07:20 04/29/22 07:10 PG Care Time/CCT Total # of Minutes Spent Total Time Spent with Patient: Total time spent is greater than 50% in coordination of care (as documented) at patient's floor/unit and/or counseling patient: Coding Level of Care Code 18311 Subseq Hosp Care Lvl 2 Diagnoses Influenza A J10.1 FERDINAND (acute kidney injury) N17.9 Elevated troponin R77.8 COPD with emphysema J43.9 Cardiomyopathy I42.9
[2022-04-29] MEDS: ACETAMINOPHEN 325 MG TAB PO PRN (21:18)
[2022-04-29] MEDS: HEPARIN SOD 5,000 UNIT/0.5 ML VIAL SQ SCH (21:19)
[2022-04-29] MEDS: guaiFENesin 600 MG TABCR PO SCH (21:55)
[2022-04-30] MEDS: AZITHROMYCIN 500 MG in DEXTROSE 5% 250 ML IV SCH (01:13)
[2022-04-30] MEDS: ALBUTEROL HFA 8 GM INHALER INH PRN (05:43)
[2022-04-30] MEDS ORDERED: LORazepam 2 MG/1 ML VIAL IV STA (06:09)
[2022-04-30 06:45] LABS: iSTAT Allen Test Pass; iSTAT FiO2 100 %; iSTAT Site R Brachial; iSTAT Venous Carbon Dioxide 31 mmol/L (24-31)
[2022-04-30 06:53] LABS: BUN Creatinine Ratio 21.2 (10-20); Creatinine Clr Calc Pharmacy 37.1 ml/min; Est GFR (African American) 63.3 ml/min; Est GFR (Non-African American) 54.7 ml/min; Potassium 4.4 mmol/L (3.5-5.1)
[2022-04-30] MEDS: UMECLIDINIUM/VILANTEROL 62.5/25MCG 7 PUFFS/INHALER INH SCH (08:07)
[2022-04-30] MEDS: OSELTAMIVIR PHOSPHATE SUSP 30 MG/5 ML UDP PO SCH ×2 (08:07→21:17)
[2022-04-30] MEDS: guaiFENesin 600 MG TABCR PO SCH ×2 (08:07→20:15)
[2022-04-30] MEDS: HEPARIN SOD 5,000 UNIT/0.5 ML VIAL SQ SCH ×2 (08:08→20:15)
[2022-04-30] MEDS: ASPIRIN 81 MG ECTAB PO SCH (08:08)
[2022-04-30] MEDS: METOPROLOL SUCC 50MG EXT REL TAB PO SCH (08:08)
[2022-04-30] MEDS: BENZONATATE 100 MG CAPSULE PO PRN ×4 (08:11→23:54)
[2022-04-30] MEDS ORDERED: diphenhydrAMINE 50 MG/ML VIAL IV PRN (14:11)
[2022-04-30] MEDS ORDERED: dexAMETHasone 2 MG in SYRINGE 0 ML IV ONE (14:11)
[2022-04-30] MEDS ORDERED: LORazepam 2 MG/1 ML VIAL IV PRN (14:16)
[2022-04-30] MEDS: ATORVASTATIN 40 MG TAB PO SCH (16:11)
[2022-04-30] MEDS: ACETAMINOPHEN 325 MG TAB PO PRN (16:13)
--- NOTE | 2022-04-30 18:47 | Hospitalist Progress Note ---
Date of Service April 30, 2022 Assessment & Plan (1) Influenza A: Plan: Mr. Toledo is a 71 yo M with a hx of COPD here today for SOB with productive cough - tested positive for Flu A on admission - continue 5 day course of tamiflu (2) FERDINAND (acute kidney injury): Plan: - pt has ferdinand with cr elevated to 1.8 (baseline 1.1.), - likley pre-renal due to poor po intake - Cr down to 1.32 today with IV hydration - hold nsaids and tamy inhibitor - repeat BMP in am (3) Elevated troponin: Plan: - has downtrended - pt denies chest pain; EKG without ST segment changes - elevation in serum creatinine likley causing impaired clearance (4) COPD with emphysema: Plan: - complaint with home medication regimen - he does continue to smoke, recommend cessation - at risk for exacerbation in setting of flu A infection --> patient with extreme chest tightness this morning - continue Azithromycin; patient refused IV steroids, however upon further consideration, he consented to an IV dose of dexamethasone, and is now comfortably breathing on room air. Start Predniosne 40mg x 5 days on 05/01/22 - mucinex - oxygen supplementation prn - duoneb prn (5) Cardiomyopathy: Plan: - history of, follows with Dr. Schofield - due to ischemic disease - continue metoprolol, ASA and TAMY (the latter on hold due to kidney function) - patient refuses statin and ICD placement. Also refused Farxiga per Dr. Brady er's notes - on further consideration, allowed me to restart lipitor 40mg today Diet: heart healthy Dispo: Med/tele Dvt ppx: Heparin given elevated creatinine Code: Full Admission and Anticipated Discharge Date Admission Date: April 29, 2022 Subjective Patient decompensated early this morning - duo neb was given and he felt worse -- temporarily placed on bipap, then transitioned to oxymask. An IV Ativan dose was helpful. Patient is convinced he is "allergic" to steroids. Patient's daughter is present at bedside - revealed patient is continuing to smoke despite COPD. He is struggling with chest tightness and continues to ask nursing staff for more oxygen, despite his O2 sat reading 100%. Review of Systems Review of Systems: All systems reviewed & are unremarkable except as noted in HPI & below Physical Exam Constitutional: WD/WN, vitals as above Eyes: + anicteric sclerae ENMT: external ear and nose normal, oropharynx normal Neck: trachea midline, no thyromegaly Respiratory: normal respiratory effort and + cough Auscultation: + rhonchi + poor air movement Cardiovascular: RRR, no murmur, no edema Musculoskeletal: Head/Neck/Chest: normocephalic and head atraumatic Skin: no rashes, warm and dry Neurologic: moves all extremities Psychiatric: A+Ox3, euthymic affect Results & Data Results & Data ([facility]) Vital Signs (Past 12 Hours) Vital Signs Temp Pulse Pulse Resp BP Pulse Ox O2 Del Method 04/30/22 15:42 36.7 C 81 21 110/65 97 Room Air 04/30/22 15:33 86 04/30/22 14:13 96 Room Air 04/30/22 10:42 36.5 C 81 22 139/82 100 Nasal Cannula 04/30/22 09:47 Oxymask 04/30/22 07:33 76 04/30/22 07:08 36.5 C 98 H 22 151/94 H 100 Oxymask O2 Flow Rate 04/30/22 15:42 04/30/22 15:33 04/30/22 14:13 04/30/22 10:42 10 04/30/22 09:47 6 04/30/22 07:33 04/30/22 07:08 6 PG Care Time/CCT Total # of Minutes Spent Total Time Spent with Patient: Total time spent is greater than 50% in coordination of care (as documented) at patient's floor/unit and/or counseling patient: Coding Level of Care Code 68953 Subseq Hosp Care Lvl 2 Diagnoses Influenza A J10.1 FERDINAND (acute kidney injury) N17.9 Elevated troponin R77.8 COPD with emphysema J43.9 Cardiomyopathy I42.9
[2022-05-01] MEDS: AZITHROMYCIN 500 MG in DEXTROSE 5% 250 ML IV SCH (00:46)
[2022-05-01] MEDS: BENZONATATE 100 MG CAPSULE PO PRN ×2 (06:07→20:03)
[2022-05-01 06:47] LABS: Creatinine Clr Calc Pharmacy 39.8 ml/min; Est GFR (Non-African American) 59.5 ml/min
[2022-05-01] MEDS: ASPIRIN 81 MG ECTAB PO SCH (09:19)
[2022-05-01] MEDS: ATORVASTATIN 40 MG TAB PO SCH (09:19)
[2022-05-01] MEDS: guaiFENesin 600 MG TABCR PO SCH ×2 (09:19→20:05)
[2022-05-01] MEDS: METOPROLOL SUCC 50MG EXT REL TAB PO SCH (09:20)
[2022-05-01] MEDS: HEPARIN SOD 5,000 UNIT/0.5 ML VIAL SQ SCH ×2 (09:20→20:07)
[2022-05-01] MEDS: UMECLIDINIUM/VILANTEROL 62.5/25MCG 7 PUFFS/INHALER INH SCH (09:21)
[2022-05-01] MEDS: OSELTAMIVIR PHOSPHATE SUSP 30 MG/5 ML UDP PO SCH ×2 (09:25→20:20)
[2022-05-01] MEDS: predniSONE 20 MG TAB PO SCH (10:50)
[2022-05-01] MEDS ORDERED: ALBUT/IPRATROP 3MG/0.5MG NEB 3 ML VIAL NEB STA (13:18)
[2022-05-01] MEDS ORDERED: LORazepam 2 MG/1 ML VIAL IV STA (13:18)
[2022-05-01] MEDS ORDERED: LORazepam 0.5 MG TAB PO STA (13:20)
[2022-05-01 14:41] LABS: D Dimer 1050 ug/L FEU (0-500)
--- NOTE | 2022-05-01 15:42 | Hospitalist Progress Note ---
Date of Service May 01, 2022 Assessment & Plan (1) Influenza A: Plan: Mr. Toledo is a 71 yo M with a hx of COPD who was admitted for SOB with productive cough - tested positive for Flu A on admission - continue 5 day course of tamiflu (2) FERDIANND (acute kidney injury): Plan: - pt has ferdinand with cr elevated to 1.8 on admission (baseline 1.1.) - likley pre-renal due to poor po intake - Cr down to 1.23 today with IV hydration - hold tamy inhibitor --> resume when Cr reaches baseline - repeat BMP in am (3) Elevated troponin: Plan: - has downtrended - pt denies chest pain; EKG without ST segment changes - elevation in serum creatinine likley causing impaired clearance (4) COPD with emphysema: Plan: - in exacerbation due to acute Flu A infection - continue Azithromycin; patient refused IV steroids initially, claiming he was"allergic" to them, however upon further consideration, he consented to steroid trial and has done better since they've been on board. He was given 2mg IV Dexamethasone on 04/30/22 and was started on Prednisone 40mg daily for 5 days on 05/01/22 - mucinex scheduled and duoneb prn - oxygen supplementation prn - complaint with home inhaler regimen (5) Tachycardia: Plan: - Hr running in 110s this morning - He did report feeling anxious and was straining to breath --> this improved with a very small dose of ativan 0.5mg. - A d-dimer was drawn, which was elevated to 1050, however given improvement in HR with ativan administration (down to 80s) and given that he has not desatted, my suspicion for a PE is low and will defer CTA at this time. He did have an elevated d-dimer > 2000 in 2019 at which time a Chest CTA was done and it showed no evidence of PE. (6) Current smoker: Plan: - he does continue to smoke, recommend cessation. He says he would like to speak with his PCP, Jessica Duarte, at his hospital follow up visit regarding nicotine replacement therapy vs. Chantix (7) Cardiomyopathy: Plan: - history of, follows with Dr. Schofield - due to ischemic disease - continue metoprolol, ASA and TAMY (the latter on hold due to kidney function) - per Dr. Schofield's notes he has refused farixga, statin and ICD placement. Upon further consideration today, he was willing to restart lipitor 40mg daily. Recommend Farxiga be initiated upon discharge Diet: heart healthy Dispo: Med/tele. will monitor overnight - so long as he continues to improve, likely dc on 05/02/22 Dvt ppx: Heparin given elevated creatinine Code: Full Admission and Anticipated Discharge Date Admission Date: April 29, 2022 Subjective Doing much better today - although does feel anxious. He says he is not typically an anxious person, but he did have a nightmare and has been anxious ever since waking up. He denies any pleuritic chest pain. Review of Systems Respiratory: + cough Physical Exam Constitutional: WD/WN, vitals as above Eyes: + anicteric sclerae ENMT: external ear and nose normal, oropharynx normal Neck: trachea midline, no thyromegaly Respiratory: normal respiratory effort and + cough Auscultation: + rhonchi and + wheezes (on expiration in b/l bases) Cardiovascular: RRR, no murmur, no edema Musculoskeletal: Head/Neck/Chest: normocephalic and head atraumatic Skin: no rashes, warm and dry Neurologic: moves all extremities Psychiatric: A+Ox3, euthymic affect Results & Data Results & Data ([facility]) Vital Signs (Past 12 Hours) Vital Signs Temp Pulse Resp BP Pulse Ox Pulse Ox Pulse Ox 05/01/22 12:25 36.9 C 109 H 20 149/89 H 96 05/01/22 11:32 96 98 05/01/22 08:00 05/01/22 07:55 36.5 C 84 20 123/80 93 Pulse Ox O2 Del Method O2 Flow Rate O2 Flow Rate O2 Flow Rate 05/01/22 12:25 Room Air 05/01/22 11:32 91 0 0 0 05/01/22 08:00 Room Air 05/01/22 07:55 Room Air PG Care Time/CCT Total # of Minutes Spent Total Time Spent with Patient: Total time spent is greater than 50% in coordination of care (as documented) at patient's floor/unit and/or counseling patient: Coding Level of Care Code 13652 Inpt Consult Level 2 Diagnoses Influenza A J10.1 FERDINAND (acute kidney injury) N17.9 Elevated troponin R77.8 COPD with emphysema J43.9 Tachycardia R00.0 Current smoker F17.200 Cardiomyopathy I42.9
[2022-05-02] MEDS: ALBUTEROL HFA 8 GM INHALER INH PRN ×2 (01:05→08:49)
[2022-05-02] MEDS ORDERED: LORazepam 2 MG/1 ML VIAL IV STA ×2 (01:35→09:25)
[2022-05-02] MEDS ORDERED: LORazepam 2 MG/1 ML VIAL ONE (01:46)
--- NOTE | 2022-05-02 01:50 | Communication Note ---
Date of Service: May 02, 2022 Night resident note 01:00: I was notified by RN that patient was tripoding and saying he couldn't breathe despite spO2 being in the high 90s. Patient was also trying to grab objects from RN and trying to stab himself, saying "just kill me". RN noted that patient had been alert and oriented prior to this episode. RN also noted that similar episodes happened last night and the night before. I came to bedside and found patient tripoding in bed with a CPAP mask on. RT was at bedside. Patient was confused and was not answering questions appropriately, suspect due to confusion as well as wearing the CPAP mask. Physical exam BP 170s/90s HR 90s RR 24 T afebrile SpO2 100% on CPAP Gen: anxious-appearing, wearing CPAP mask, sitting up in bed and leaning forward CV: regular rate, no murmur appreciated, extremities well-perfused, no LE edema Resp: CTABL, breathing labored Neuro: alert, not oriented, no focal deficit appreciated I ordered ativan 1mg IV, as this was given during a similar episode yesterday and led to resolution of symptoms. Within 5-10 minutes, patient fell asleep and appeared to be breathing comfortably. Vitals remained stable including spO2 98%+. I suspect that this episode (and reportedly-similar episodes over the past couple days) represents a panic attack given adequate spO2 and stable vitals during the episode, lungs CTABL, and rapid symptom resolution after ativan administration. Edy Godinez MD, PGY-3 Resident Activity Tracking Resident Involvement: Resident Care Provided and Post Office Clerk Coverage Note Care Provided: Adult Hospital Medicine
[2022-05-02 06:33] LABS: BUN Creatinine Ratio 28.2 (10-20); Calcium 8.4 mg/dl (8.5-10.1); Creatinine Clr Calc Pharmacy 37.1 ml/min; Est GFR (African American) 63.9 ml/min; Est GFR (Non-African American) 55.2 ml/min; Potassium 4.9 mmol/L (3.5-5.1)
[2022-05-02] MEDS ORDERED: ALBUT/IPRATROP 3MG/0.5MG NEB 3 ML VIAL NEB PRN (09:04)
--- NOTE | 2022-05-02 09:11 | Hospitalist Progress Note ---
Date of Service May 02, 2022 Assessment & Plan (1) Acute and chronic respiratory failure with hypoxia: Plan: Admitted for worsening SOB and URI, found to be influenza A POSITIVE. Treating as COPD exacerbation 2/2 influenza A infection in essentially end-stage COPD patient. 05/02 with worsening of respiratory status overnight, some element of anxiety though to be contributory to tachypnea however with tripoding and continued tachypnea into the late morning. CXR without evidence of PNA or pulmonary edema, also no evidence of such on CT PE protocol and no evidence of PE. Pulmonary consulted and appreciate recommendations: suspect presentation due to influenza A infection in patient with end-stage COPD. Palliative care consult placed. Discussed risk/benefit of Ativan/morphine for pain/anxiety and possible effect on respiratory drive. Patient and daughter aware and would like medications PRN for anxiety/respiratory distress. NO INTUBATION IF HAS RESPIRATORY FAILURE. Escalated steroids today (05/02) to methylpred 60mg IV BID, Duonebs scheduled and prn. ABG today showed O2 120, CO2 36, oxygen discontinued in favor of anxiety/pain control with goal SpO2 88-92% as do not want to suppress his respiratory drive. Codeine and guaifenesin for cough. Vest therapy for mucociliary clearance. Given worsening respiratory status and end stage COPD, palliative care consulted and appreciate recommendations. (2) Influenza A: Plan: see above (3) FERDINAND (acute kidney injury): Plan: FERDINAND to creatinine 1.8 on admission, has since resolved with creatinine 1.3 on 05/02. Likely sec to poor po intake due to acute illness Received IV fluids, since discontinued in favor of PO intake. (4) Elevated troponin: Plan: Troponin trend 0.095 -> 0.197 -> 0.155 without evidence of chest pain, no EKG changes suggestive ACS. Also with poor clearance of troponin given FERDINAND. (5) COPD with emphysema: Plan: see above (6) Pulmonary cachexia due to chronic obstructive pulmonary disease: Plan: see above (7) COPD exacerbation: Plan: see above Admission and Anticipated Discharge Date Admission Date: April 29, 2022 Subjective Overnight patient had episode of subjective shortness of breath resolved after administration of Ativan dosing for suspected panic attack, stable vitals and normal O2 however this AM is on 8L Oxymask, compared to room air for much of day when not ambulating yesterday. Turned down to 5L by respiratory due to saturating 100%. However, later in AM today asked to eval patient due to continued episodes of tripoding, shortness of breath, tachypnea up to 30-40 at times with mild tachycardia. Discussed with patient that he would NOT want intubation in the event of respiratory failure. He does endorse wanting chest compressions/defibrillation if has a cardiac arrest. Discussed this with patient's daughter Chelsi as well. Review of Systems Review of Systems: All systems reviewed & are unremarkable except as noted in Subjective Physical Exam Constitutional: + ill appearing and + thin Respiratory: tachypneic, lungs CTA with intermittent wheezing Cardiovascular: HR regular, mildly tachycardic, no murmurs, no peripheral edema Gastrointestinal (Abdomen): normal bowel sounds, soft, nontender, no hepatosplenomegaly Skin: no rashes, warm and dry Psychiatric: Orientation: alert and oriented x 3 Affect: + anxious affect Results & Data Results & Data ([facility]) Vital Signs (Past 12 Hours) Vital Signs Temp Pulse Pulse Pulse Resp BP BP 05/02/22 08:52 100 H 28 H 05/02/22 06:56 85 20 98/62 L 05/02/22 06:34 88 20 110/71 05/02/22 06:10 107 H 25 H 151/101 H 05/02/22 05:24 36.4 C L 105 H 25 H 161/89 H 05/02/22 05:05 105 H 22 145/100 H 05/01/22 22:40 73 05/02/22 03:22 105 H 26 H 05/02/22 02:10 99 H 24 05/02/22 02:26 91 H 21 130/94 05/02/22 01:20 24 05/01/22 23:00 36.5 C 90 20 150/89 H Pulse Ox O2 Del Method O2 Flow Rate FiO2 05/02/22 08:52 100 Oxymask 8 05/02/22 06:56 100 Oxymask 8.5 05/02/22 06:34 100 Oxymask 8.5 05/02/22 06:10 100 Oxymask 8.5 05/02/22 05:24 100 Oxymask 8.5 05/02/22 05:05 100 Oxymask 8.5 05/01/22 22:40 05/02/22 03:22 100 6 05/02/22 02:10 100 50 05/02/22 02:26 100 BiPAP 05/02/22 01:20 100 50 05/01/22 23:00 97 Room Air PG Care Time/CCT Total # of Minutes Spent Total Time Spent with Patient: Total time spent is greater than 50% in coordination of care (as documented) at patient's floor/unit and/or counseling patient: Coding Level of Care Code 97103 Subseq Hosp Care Lvl 3 Diagnoses Acute and chronic respiratory failure with hypoxia J96.21 Influenza A J10.1 FERDINAND (acute kidney injury) N17.9 Elevated troponin R77.8 COPD with emphysema J43.9 Pulmonary cachexia due to chronic obstructive pulmonary disease J44.9; R64 COPD exacerbation J44.1
[2022-05-02] MEDS: ATORVASTATIN 40 MG TAB PO SCH (09:32)
[2022-05-02] MEDS: METOPROLOL SUCC 50MG EXT REL TAB PO SCH (09:32)
[2022-05-02] MEDS: guaiFENesin 600 MG TABCR PO SCH ×2 (09:32→20:27)
[2022-05-02] MEDS: predniSONE 20 MG TAB PO SCH (09:33)
[2022-05-02] MEDS: ASPIRIN 81 MG ECTAB PO SCH (09:33)
[2022-05-02] MEDS: UMECLIDINIUM/VILANTEROL 62.5/25MCG 7 PUFFS/INHALER INH SCH (09:33)
[2022-05-02] MEDS: OSELTAMIVIR PHOSPHATE SUSP 30 MG/5 ML UDP PO SCH ×2 (09:43→20:35)
--- NOTE | 2022-05-02 09:49 | XRay Report ---
XR chest 1V portable CLINICAL HISTORY: increased o2 demand, retracting COMPARISON STUDY: Chest radiograph April 28, [address] June 07, 2019. FINDINGS: Severe emphysema is again noted. There is no pneumothorax or pleural effusion. There is no consolidation or evidence for pulmonary edema. Cardiomediastinal silhouette is stable. Nipple shadow projects over the left midlung. There has been no significant change in appearance of the chest. IMPRESSION: No acute cardiopulmonary findings. Emphysema. ACT 112: Negative or not required by law. Electronically signed by: Darci Huertas M.D. 05/02/2022 9:47 AM
[2022-05-02] MEDS: ALBUT/IPRATROP 3MG/0.5MG NEB 3 ML VIAL NEB SCH ×4 (09:53→19:33)
[2022-05-02] MEDS: HEPARIN SOD 5,000 UNIT/0.5 ML VIAL SQ SCH ×2 (10:52→20:28)
[2022-05-02] MEDS ORDERED: OPTIRAY 320 500ml IV ONE ×2 (11:20→11:22)
--- NOTE | 2022-05-02 11:36 | Pulmonary Consultation ---
Date of Consultation May 02, 2022 Assessment & Plan (1) COPD exacerbation: (2) Cardiomyopathy: (3) Pulmonary cachexia due to chronic obstructive pulmonary disease: Plan Patient with essentially end-stage disease that is refractory to treatment. Agree with IV Solu-Medrol at this time. We will add vest therapy to help with mucociliary clearance. Maintain saturations of 88 to 92%. We will change his current inhaler regimen to long-acting nebulizers as the patient likely has a poor inspiratory capacity given his severe end-stage COPD. We will also place the patient on azithromycin for the immunomodulatory effects. Recommend transitioning to azithromycin every Wednesday, Wednesday and Wednesday upon discharge. We will add codeine and guaifenesin for the cough. He is a poor rehab candidate given his pulmonary cachexia and cardiomyopathy. Recommend consultation with palliative care and discussions of goals of care. No further recommendations. Pulmonary to sign off. Please call questions. Thank you. History of Present Illness Reason for Consultation: COPD exacerbation Attending Physician: Flor Lim DO History of Present Illness 71-year-old male with a past medical history of COPD who presented to the hospital 04/29/2022 due to increasing shortness of breath and cough. He was found to be influenza A positive. He was started on Tamiflu. He follows with Dr. Hernandez in the outpatient setting. He has a greater than [id number] smoking history and smokes cigars currently. No PFTs available for review at this time. He had a chest x-ray today which revealed significant emphysema, but no other findings. CT angio completed this morning revealed huitron lobar emphysema without evidence of significant pulmonary embolism. Apical fibrosis seen. No other discrete infiltrate or pleural effusion. He is currently on methylprednisone 60 mg twice daily, LABA/LAMA and albuterol as needed. He notes severe anxiety and refractory cough. Unable to produce any phlegm. No hemoptysis. No fevers, chills or night sweats. Denies chest pain. Allergies Allergy/AdvReac Type Severity Reaction Status Date / Time methylprednisolone Allergy Severe THROAT Verified 04/28/22 20:37 [From Solu-Medrol] CLOSES Penicillins Allergy Intermediate muscle Verified 04/28/22 20:37 spasms Home Medications Medication Instructions Recorded Confirmed Type aspirin 81 mg tablet,delayed 81 mg PO QAM 12/29/18 04/28/22 History release albuterol sulfate 90 mcg/actuation 2 puff inhalation Q6H PRN 08/18/21 04/28/22 Rx aerosol inhaler Shortness Of Breath Or Wheezing #18 grams lisinopril 20 mg tablet 20 mg PO DAILY #90 tabs 08/18/21 04/28/22 Rx metoprolol succinate 50 mg 50 mg PO QAM #90 tabs 08/18/21 04/28/22 Rx tablet,extended release 24 hr umeclidinium 62.5 mcg-vilanterol 1 inh inhalation Q24H #60 ea 02/13/22 04/28/22 Rx 25 mcg/actuation powdr for inhalation (Anoro Ellipta) Patient History Medical History (Updated 05/02/22 @ 11:37 by Mando Del Castillo MD) Cardiomyopathy FOLLOWS WITH DR. FOUNTAIN severely reduced LV function COPD exacerbation Coronary artery disease Chronically occluded right coronary artery, 05/2018 Current smoker on some days Degenerative disc disease Elevated troponin History of tobacco abuse Hyperlipidemia Left inguinal hernia Myocardial Infarction ? EVENT (OVER 30 YEARS AGO) Pulmonary cachexia due to chronic obstructive pulmonary disease Pulmonary nodule Surgical History History of colonoscopy History of herniorrhaphy RT INGUINAL History of tooth extraction Hx of elbow surgery RT ULNAR NERVE REPAIRED Hx of vasectomy S/P left inguinal hernia repair (02/15/19) Left Open Inguinal Hernia Repair Dr. Rogers 02/15/19 Family History Unknown Hypertension Other Family history non-contributory Past medical history not known due to adoption Denies family history of Ovarian cancer Prostate cancer Myocardial infarction Breast cancer Colorectal cancer Social History Smoking Status: Current every day smoker Tobacco Type: Cigarettes Cigarettes Per Day: 5-6 cigarettes a day; Second Hand Exposure: No; Hx Alcohol Use: Yes Alcohol type: beer and hard liquor Alcohol Intake Freque ncy: Monthly or Less Hx Substance Use: Yes Preferred Language: Slovenian Communication Ability: Effective R D Intern Required: No Beliefs That Will Affect Care: None marital status: Single Current Living Situation: Alone current occupational status: retired Feels Safe at Home: Yes caffeine: Yes Dental Care, Regularly: No Physical Activity Frequency: Daily Seatbelt Use: always Sunscreen Use: No Assistive Devices: Denture - Upper and Glasses Review of Systems Review of Systems: All systems reviewed & are unremarkable except as noted in HPI & below Physical Exam Physical Exam: Constitutional: Cachectic appearing and agitated. Eyes: Pupils are equal round and reactive to light. Conjunctivae are normal. Anicteric sclera. Ears nose, mouth and throat: Mallampati class 2. Normal posterior oropharynx. Uvula is midline. Neck: Trachea is midline. Visual inspection is normal. Respiratory: Mild expiratory wheeze bilaterally. Minimal air movement. Cardiovascular: Regular rate and rhythm. No murmurs. No edema. Gastrointestinal: Normal bowel sounds, soft, nontender and nondistended. No hepatosplenomegaly noted. Musculoskeletal: No cyanosis. Patient is able to move all extremities. Skin: No rashes, warm dry and intact. Neurologic: No obvious focal neurological deficits seen. Psychiatric: Agitated and anxious Results & Data Results & Data ([facility]) Vital Signs (Past 12 Hours) Vital Signs Temp Pulse Pulse Pulse Resp BP BP 05/02/22 09:04 88 05/02/22 09:04 05/02/22 09:54 104 H 30 H 05/02/22 09:54 104 H 30 H 05/02/22 09:36 44 H 146/84 H 05/02/22 08:52 100 H 28 H 05/02/22 06:56 85 20 98/62 L 05/02/22 06:34 88 20 110/71 05/02/22 06:10 107 H 25 H 151/101 H 05/02/22 05:24 36.4 C L 105 H 25 H 161/89 H 05/02/22 05:05 105 H 22 145/100 H 05/02/22 03:22 105 H 26 H 05/02/22 02:10 99 H 24 05/02/22 02:26 91 H 21 130/94 05/02/22 01:20 24 Pulse Ox O2 Del Method O2 Flow Rate FiO2 05/02/22 09:04 05/02/22 09:04 Oxymask 8 05/02/22 09:54 99 5 05/02/22 09:54 99 BiPAP 5 05/02/22 09:36 99 Oxymask 5 05/02/22 08:52 100 Oxymask 8 05/02/22 06:56 100 Oxymask 8.5 05/02/22 06:34 100 Oxymask 8.5 05/02/22 06:10 100 Oxymask 8.5 05/02/22 05:24 100 Oxymask 8.5 05/02/22 05:05 100 Oxymask 8.5 05/02/22 03:22 100 6 05/02/22 02:10 100 50 05/02/22 02:26 100 BiPAP 05/02/22 01:20 100 50 PG Care Time/CCT Total # of Minutes Spent Total Time Spent with Patient: Total time spent is greater than 50% in coordination of care (as documented) at patient's floor/unit and/or counseling patient: Coding Level of Care Code 19044 Initial Inpt Care Lvl 3 Diagnoses COPD exacerbation J44.1 Cardiomyopathy I42.9 Pulmonary cachexia due to chronic obstructive pulmonary disease J44.9; R64
--- NOTE | 2022-05-02 11:42 | CT Scan Report ---
CT ANGIOGRAPHY OF THE CHEST, PULMONARY EMBOLUS PROTOCOL CLINICAL HISTORY: Shortness of breath. Chest pain. Evaluate for pulmonary embolus. COMPARISON STUDY: Chest CT June 07, 2019 and chest radiograph performed earlier today. TECHNIQUE: Following IV administration of 115 mL of Optiray, helical axial images of the chest were o btained utilizing the pulmonary embolus protocol. Maximal intensity projections and sagittal and cor onal reformats were viewed on an independent 3D workstation. IV contrast was administered without co mplication. Automated exposure control was utilized for the study. A dose lowering technique was ut ilized adhering to the principles of ALARA. CT DOSE: 321.46 mGy.cm FINDINGS: No pulmonary emboli are identified. There is extensive coronary artery calcification. Size of the heart is normal. However, there is mild left ventricular dilatation. 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 There is no pericardial effusion. No thoracic lymphadenopathy is present. There is no pneumothorax or pleural effusion. Mild secretions within the airways are noted. These are most evident within the left darius tem bronchus. No central obstructing mass is present. There are severe emphysema. No consolidation is identified to suggest pneumonia. A 5 mm right upper lobe nodule on image 305 of 353 is unchanged fro m earlier exams. This is benign given stability. No acute rib fractures are identified although sensi tivity is diminished given respiratory motion. Old T7 compression fracture is unchanged. IMPRESSION: 1. No pulmonary emboli identified. 2. Severe emphysema. No consolidation to suggest pneumonia. 3. 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 Extensive coronary artery calcif ication. ACT 112: Negative or not required by law. Electronically signed by: Darci Huertas M.D. 05/02/2022 11:40 AM
[2022-05-02 11:50] LABS: Allen Test Pos (Pos); Base Excess ABG -0.1 mEq/L (-9-1.8); HCO3 ABG 24 mmol/L (19-24); Oxygen Saturation ABG 98.8 % (90-95); PCO2 ABG 36 mmHg (35-46); PO2 ABG 120 mmHg (80-95); pH ABG 7.43 (7.35-7.45)
[2022-05-02] MEDS ORDERED: FORMOTEROL 20 MCG/2 ML VIAL ONE (11:55)
[2022-05-02] MEDS: BUDESONIDE 0.5 MG/2 ML VIAL (PULMICORT) NEB SCH ×2 (11:59→19:33)
[2022-05-02] MEDS: methylPREDNISolone 60 MG in SYRINGE 0 ML IV SCH ×2 (12:19→20:29)
[2022-05-02] MEDS: LORazepam 0.5 MG TAB PO PRN ×2 (12:41→19:43)
[2022-05-02] MEDS: guaiFENesin/CODEINE 100MG/10MG 5ML UDC PO PRN (12:41)
[2022-05-02] MEDS: AZITHROMYCIN 250 MG TAB PO SCH (13:36)
[2022-05-02] MEDS: MoRPHine SULFATE 2 MG/ML CARP IV PRN ×2 (14:17→20:20)
[2022-05-02] MEDS: LORazepam 2 MG/1 ML VIAL IV STA (14:17)
[2022-05-02] MEDS: FORMOTEROL 20 MCG/2 ML VIAL INH SCH (19:33)
[2022-05-03] MEDS: LORazepam 0.5 MG TAB PO PRN ×2 (00:55→20:57)
[2022-05-03] MEDS: MoRPHine SULFATE 2 MG/ML CARP IV PRN ×3 (03:26→20:13)
[2022-05-03] MEDS: BUDESONIDE 0.5 MG/2 ML VIAL (PULMICORT) NEB SCH ×2 (07:59→20:07)
[2022-05-03] MEDS: FORMOTEROL 20 MCG/2 ML VIAL INH SCH ×2 (08:00→20:07)
[2022-05-03] MEDS: ALBUT/IPRATROP 3MG/0.5MG NEB 3 ML VIAL NEB SCH ×4 (08:22→20:07)
[2022-05-03 08:51] LABS: Hematocrit (blood only) 35.6 % (40.1-51.0); Hemoglobin 12.2 g/dl (14.0-18.0); Immature Granulocytes # (auto) 0.02 K/uL (0.00-0.02); Immature Granulocytes % (auto) 0.4 %; Lymphocytes # (auto) 0.38 K/uL (1.2-3.4); Mean Corpuscular Hemoglobin 28.7 pg (25.0-34.0); Mean Corpuscular Hgb Conc 34.3 g/dL (32.0-36.0); Mean Corpuscular Volume 83.8 fL (80.0-100.0); Monocytes # (auto) 0.36 K/uL (0.24-0.82); Monocytes % (auto) 6.6 %; Neutrophils # (auto) 4.66 K/uL (1.4-6.5); Platelet Count 293 K/uL (130-400); RDW Coefficient of Variation 13.8 % (11.5-14.5); RDW Standard Deviation 42.1 fL (36.4-46.3); Red Blood Count 4.25 M/uL (4.63-6.08); White Blood Count 5.42 K/ul (4.8-10.8)
[2022-05-03 09:03] LABS: Base Excess ABG 1.4 mEq/L (-9-1.8); HCO3 ABG 25 mmol/L (19-24); Oxygen Saturation ABG 96.9 % (90-95); PCO2 ABG 35 mmHg (35-46); PO2 ABG 76 mmHg (80-95); pH ABG 7.46 (7.35-7.45)
[2022-05-03 09:17] LABS: Calcium 8.8 mg/dl (8.5-10.1); Creatinine Clr Calc Pharmacy 36.8 ml/min; Est GFR (African American) 62.2 ml/min; Est GFR (Non-African American) 53.7 ml/min; Potassium 4.8 mmol/L (3.5-5.1)
[2022-05-03 09:26] LABS: Allen Test Pos (Pos)
[2022-05-03] MEDS: METOPROLOL SUCC 50MG EXT REL TAB PO SCH (09:33)
[2022-05-03] MEDS: HEPARIN SOD 5,000 UNIT/0.5 ML VIAL SQ SCH ×2 (09:34→20:13)
[2022-05-03] MEDS: AZITHROMYCIN 250 MG TAB PO SCH (09:34)
[2022-05-03] MEDS: ASPIRIN 81 MG ECTAB PO SCH (09:34)
[2022-05-03] MEDS: guaiFENesin 600 MG TABCR PO SCH ×2 (09:34→20:39)
[2022-05-03] MEDS: ATORVASTATIN 40 MG TAB PO SCH (09:34)
[2022-05-03] MEDS: LORazepam 2 MG/1 ML VIAL IV STA (09:35)
[2022-05-03] MEDS: methylPREDNISolone 60 MG in SYRINGE 0 ML IV SCH (09:35)
[2022-05-03] MEDS: OSELTAMIVIR PHOSPHATE SUSP 30 MG/5 ML UDP PO SCH ×2 (09:47→20:37)
--- NOTE | 2022-05-03 12:53 | Hospitalist Progress Note ---
Date of Service May 03, 2022 Assessment & Plan (1) Acute and chronic respiratory failure with hypoxia: Plan: Admitted for worsening SOB and URI, found to be influenza A POSITIVE. Treating as COPD exacerbation 2/2 influenza A infection in end-stage COPD patient. 05/02 with worsening of respiratory status overnight, CXR without evidence of PNA or pulmonary edema, also no evidence of such on CT PE protocol and no evidence of PE. 05/03 improvement in breathing off of oxygen (ABG much improved today with O2 120s->70s, CO2 35, pH 7.46). Pulmonary consulted and appreciate recommendations: suspect presentation due to influenza A infection in patient with end-stage COPD. Palliative care consult placed. Will cancel Palliative care consult for now as patient's respiratory status has improved greatly (perhaps due to clearing of influenza infection). Did however discuss that patient's condition is end-stage and that he should discuss his overall prognosis and plan of care with his PCP / palliative in the near future. Will deescalate steroids from methylpred yesterday and today to prednisone 40mg PO daily tomorrow. Monitor daily BSG on steroids. Codeine and guaifenesin for cough. Vest therapy for mucociliary clearance. Dispo based on 2 Step tomorrow, and continued improvement in respiratory status. (2) Influenza A: Plan: see above (3) FERDIANND (acute kidney injury): Plan: FERDINAND to creatinine 1.8 on admission, has since resolved with creatinine stable at 1.3 on for last several days. Likely sec to poor po intake due to acute illness. Received IV fluids, since discontinued in favor of PO intake. (4) Elevated troponin: Plan: Troponin trend 0.095 -> 0.197 -> 0.155 without evidence of chest pain, no EKG changes suggestive ACS. Also with poor clearance of troponin given FERDINAND. (5) COPD with emphysema: Plan: see above (6) Pulmonary cachexia due to chronic obstructive pulmonary disease: Plan: Discussed adequate po calorie intake to offset wasting from pulmonary pathology. Else see above. (7) COPD exacerbation: Plan: see above Plan heparin 5000u BID for DVT ppx Conditional CODE: no intubation heart healthy diet telemetry status due to recent respiratory failure, respiratory alkalosis Admission and Anticipated Discharge Date Admission Date: April 29, 2022 Subjective Overnight patient slept much better, used morphine x1 for breathing issues. This morning is "like a new man", breathing more comfortably off of oxygen, not feeling anxious. No pain. Not on oxygen at home. Review of Systems Review of Systems: All systems reviewed & are unremarkable except as noted in Subjective Physical Exam Constitutional: + thin; no acute distress Respiratory: lungs CTA with intermittent quiet wheeze bilaterally Cardiovascular: RRR, no murmur, no edema Gastrointestinal (Abdomen): normal bowel sounds, soft, nontender, no hepatosplenomegaly Skin: no rashes, warm and dry Psychiatric: Orientation: alert and oriented x 3 Affect: euthymic affect Results & Data Results & Data ([facility]) Vital Signs (Past 12 Hours) Vital Signs Temp Pulse Pulse Resp BP Pulse Ox O2 Del Method 05/03/22 12:17 36.7 C 100 H 20 136/84 95 Room Air 05/03/22 11:25 86 22 95 Room Air 05/03/22 07:30 36.7 C 82 23 118/80 95 Room Air 05/03/22 08:00 75 05/03/22 08:00 Room Air 05/03/22 08:00 93 H 20 94 Room Air 05/03/22 04:05 36.4 C L 91 H 20 130/92 97 Room Air 05/03/22 00:57 86 PG Care Time/CCT Total # of Minutes Spent Total Time Spent with Patient: Total time spent is greater than 50% in coordination of care (as documented) at patient's floor/unit and/or counseling patient: Coding Level of Care Code 31398 Subseq Hosp Care Lvl 3 Diagnoses Acute and chronic respiratory failure with hypoxia J96.21 Influenza A J10.1 FERDINAND (acute kidney injury) N17.9 Elevated troponin R77.8 COPD with emphysema J43.9 Pulmonary cachexia due to chronic obstructive pulmonary disease J44.9; R64 COPD exacerbation J44.1
[2022-05-03] MEDS: guaiFENesin/CODEINE 100MG/10MG 5ML UDC PO PRN (15:04)
[2022-05-03] MEDS: BENZONATATE 100 MG CAPSULE PO PRN (18:16)
[2022-05-03] MEDS: ACETAMINOPHEN 325 MG TAB PO PRN (18:16)
[2022-05-04] MEDS: MoRPHine SULFATE 2 MG/ML CARP IV PRN (01:39)
[2022-05-04 04:52] LABS: Hematocrit (blood only) 32.7 % (40.1-51.0); Hemoglobin 11.1 g/dl (14.0-18.0); Immature Granulocytes # (auto) 0.03 K/uL (0.00-0.02); Immature Granulocytes % (auto) 0.3 %; Lymphocytes # (auto) 0.32 K/uL (1.2-3.4); Lymphocytes % (auto) 3.7 %; Mean Corpuscular Hemoglobin 28.8 pg (25.0-34.0); Mean Corpuscular Hgb Conc 33.9 g/dL (32.0-36.0); Mean Corpuscular Volume 84.7 fL (80.0-100.0); Mean Platelet Volume 10.4 fL (9.4-12.4); Monocytes # (auto) 1.02 K/uL (0.24-0.82); Monocytes % (auto) 11.8 %; Neutrophils # (auto) 7.25 K/uL (1.4-6.5); Neutrophils % (auto) 84.2 %; Platelet Count 268 K/uL (130-400); RDW Standard Deviation 42.8 fL (36.4-46.3); Red Blood Count 3.86 M/uL (4.63-6.08); White Blood Count 8.62 K/ul (4.8-10.8)
[2022-05-04 05:16] LABS: BUN Creatinine Ratio 26.4 (10-20); Calcium 8.1 mg/dl (8.5-10.1); Creatinine Clr Calc Pharmacy 37.5 ml/min; Est GFR (African American) 65.1 ml/min; Est GFR (Non-African American) 56.2 ml/min; Potassium 4.5 mmol/L (3.5-5.1)
[2022-05-04] MEDS: FORMOTEROL 20 MCG/2 ML VIAL INH SCH ×2 (07:39→19:55)
[2022-05-04] MEDS: ALBUT/IPRATROP 3MG/0.5MG NEB 3 ML VIAL NEB SCH ×4 (07:40→19:55)
[2022-05-04] MEDS: BUDESONIDE 0.5 MG/2 ML VIAL (PULMICORT) NEB SCH ×2 (07:40→19:55)
[2022-05-04] MEDS: AZITHROMYCIN 250 MG TAB PO SCH (08:24)
[2022-05-04] MEDS: METOPROLOL SUCC 50MG EXT REL TAB PO SCH (08:24)
[2022-05-04] MEDS: guaiFENesin 600 MG TABCR PO SCH ×2 (08:24→19:44)
[2022-05-04] MEDS: ATORVASTATIN 40 MG TAB PO SCH (08:24)
[2022-05-04] MEDS: HEPARIN SOD 5,000 UNIT/0.5 ML VIAL SQ SCH ×2 (08:25→19:44)
[2022-05-04] MEDS: ASPIRIN 81 MG ECTAB PO SCH (08:25)
[2022-05-04] MEDS: predniSONE 20 MG TAB PO SCH (08:25)
--- NOTE | 2022-05-04 08:55 | Hospitalist Progress Note ---
Date of Service May 04, 2022 Assessment & Plan (1) Acute and chronic respiratory failure with hypoxia: Plan: Admitted for worsening SOB and URI, found to be influenza A POSITIVE. Treating as COPD exacerbation 2/2 influenza A infection in end-stage COPD patient. 05/02 with worsening of respiratory status overnight, CXR without evidence of PNA or pulmonary edema, also no evidence of such on CT PE protocol and no evidence of PE. 05/03 improvement in breathing off of oxygen (ABG much improved today with O2 120s->70s, CO2 35, pH 7.46). Pulmonary consulted and appreciate recommendations: suspect presentation due to influenza A infection in patient with end-stage COPD. Palliative care consult placed. Codeine and guaifenesin for cough. Vest therapy for mucociliary clearance. 2 step tomorrow to determine home oxygen needs. Plan for home with home hospice on discharge. Continue morphine transition to PO q6h as needed for respiratory distress, with Ativan as needed for anxiety. (2) Influenza A: Plan: see above (3) FERDINAND (acute kidney injury): Plan: FERDINAND to creatinine 1.8 on admission, has since resolved with creatinine stable at 1.3 on for last several days. Suspected to be due to poor po intake due to acute illness. Received IV fluids, since discontinued in favor of PO intake. (4) Elevated troponin: Plan: Troponin trend 0.095 -> 0.197 -> 0.155 without evidence of chest pain, no EKG changes suggestive ACS. Also with poor clearance of troponin given FERDINAND. (5) COPD with emphysema: Plan: see above (6) Pulmonary cachexia due to chronic obstructive pulmonary disease: Plan: Discussed adequate po calorie intake, pulmonary rehab. Patient will consider. Else see above. (7) COPD exacerbation: Plan: see above Plan heparin 5000u BID for DVT ppx Code Status changed today to DNR/DNI after discussion in family meeting with patient, daughter and son in law, Shahrzad Do. heart healthy diet telemetry Admission and Anticipated Discharge Date Admission Date: April 29, 2022 Subjective No overnight events. Reports feeling good with his breathing at rest but sometimes after going to bathroom for example gets a little breathless which is alleviated with morphine. Otherwise no complaints. Review of Systems Review of Systems: All systems reviewed & are unremarkable except as noted in Subjective Physical Exam Constitutional: + cachectic; no acute distress Respiratory: lungs CTA with intermittent quiet wheeze bilaterally conversational dyspnea with long sentences Cardiovascular: RRR, no murmur, no edema Gastrointestinal (Abdomen): normal bowel sounds, soft, nontender, no hepatosplenomegaly Skin: no rashes, warm and dry Psychiatric: Orientation: alert and oriented x 3 Affect: euthymic affect Results & Data Results & Data ([facility]) Vital Signs (Past 12 Hours) Vital Signs Temp Pulse Pulse Resp BP Pulse Ox O2 Del Method 05/04/22 07:42 118 H 20 98 Room Air 05/04/22 07:09 36.7 C 88 19 104/59 L 94 Room Air 05/04/22 03:00 36.4 C L 86 20 125/80 95 Room Air 05/03/22 23:00 36.5 C 91 H 20 119/75 96 Room Air 05/03/22 22:58 81 PG Care Time/CCT Total # of Minutes Spent Total Time Spent with Patient: Total time spent in the care of this patient including chart review and interpretation of studies, order placement, discussion of plan of care with patient/family/market intelligence consultant services: 60 minutes Coding Level of Care Code 18449 Subseq Hosp Care Lvl 3 Diagnoses Acute and chronic respiratory failure with hypoxia J96.21 Influenza A J10.1 FERDINAND (acute kidney injury) N17.9 Elevated troponin R77.8 COPD with emphysema J43.9 Pulmonary cachexia due to chronic obstructive pulmonary disease J44.9; R64 COPD exacerbation J44.1
--- NOTE | 2022-05-04 10:03 | Palliative Care Consultation ---
Date of Consultation May 04, 2022 Assessment & Plan (1) Palliative care encounter: Met with pt/family. Provided overview of Palliative Medicine, a subspecialty that provides specialized medical care for people living with a serious illness by offering a focus on quality of life. Palliative Medicine is often conflated with hospice: I advised patient/family that Palliative and hospice can be partners but we are not the same. It is important to understand the difference so that we may be informed, and not afraid. Palliative Medicine works to improve QOL through reduction of symptom burden/more control over their illness, for both the patient and family. Palliative medicine clinicians are board certified, specially-trained and another member of the patient's medical care team. We often provide an extra layer of support because our care is based on the needs of the patient, not the prognosis; as such, it's appropriate at any age/advancing stage of a serious illness and can be provided along with curative treatment. Palliative Medicine clinicians are also trained in advanced communication methodologies, to facilitate complex discussions about advanced illness planning, which are needed to help assure that the treatment choices match the patient's goals, aka delivering Goal Concordant care. Finally, we discussed that hospice is a visiting nurse service that focuses on care delivered at the very end of life for patients with terminal illness, with life expectancy less than 6 month. (2) Advanced care planning/counseling discussion: 35min/ACP: Patient is a fairly comprehensive understanding of his advanced lung disease. He notes that his COPD is very severe and is reaching its end stages. Daughter and son-in-law present at the bedside note that he has been struggling more with his respiratory disease for some time. Patient shares that he lives in a two- story apartment by himself. He has been renting this event for over 30 years and has a very good relationship with his landlord. He shares that he has 15 steps between the first 4 and upstairs, where his bedroom and bathroom are located. On the main floor is located a kitchen, dining room, and other living space. He has 3 steps out. At that. He has 1 cat at home that has been a longtime pet. He does not have any respiratory issues related to his cat. He lives in [place], [place]. His daughter and son-in-law reside in [facility]. He has some additional family members that live locally that are not as readily available to help him. Patient shares that his overall goal is to remain home and to focus on his quality of life. He does not wish to have any aggressive interventions. He had up until this point contemplated chest compressions and cardiac drugs only from the CPR perspective but has very consistently refused intubation or other aggressive invasive respiratory interventions. We spoke about CPR and CODE STATUS: \\I advised them that only about 10% of patients who have ywe-hx-[id number] sudden cardiac arrest survive to hospital discharge, with many survivors having neurologic impairment. This rate is even lower among patients with serious coexisting conditions, ie chance of survival to hospital discharge for in- hospital CPR in older people is low to moderate (15%) and decreases with age, comorbidities, performance status and frailty: for pts > 70 yo, more than half of the patients who initially survived resuscitation in the hospital before hospital discharge. The pooled survival to discharge after in-hospital CPR was 18% for patients between 70 and 79 years old, 15% for patients between 80 and 89 years old and 11% for patients of 90 years and older. (Mohsen MAZAY, Eric LJ, Bessie F, et al. Trends in short- and long-term survival among enh-az-javlylqm cardiac arrest patients alive at hospital arrival. Circulation 2014;130:1883- 1890. AND Queenie C, Lisseth T, Ross R, et al. Performance of clinical risk scores to predict mortality and neurological outcome in cardiac arrest patients. Resuscitation 2019;136:21-29.) I then asked patient where he saw himself at the end of his life. I advised him that this will be perhaps a more comprehensive way to to answer the question about whether or not CPR would be appropriate for him. He replied that he wants to be in his own home and with his family at the end of his life. He does not want to spend that time coming back and forth to the hospital or prolonging his dying process in any manner further to the hospital or alf. He is especially adamant he does not want placement in a facility of any sort. I advised that this is consistent and aligns with a CODE STATUS of DNR/DNI. Patient and family were in agreement and CODE STATUS was then changed from limited code to DNR/DNI status. We discussed options for disposition planning including a discharge home with standard home health versus hospice: I have provided education about the hospice benefit. Hospice is an interdisciplinary program offered by nurses, nurses aides, social workers, chaplains and a paramedical aide for patients with a terminal condition and a life expectancy of less than 6 months. The goal would be to improve the quality of life of the patient in their home setting (home, alf, inpatient hospice setting) by providing symptoms management, psychosocial and spiritual support. However, they cannot offer 24 hours care and if the family is unable to provide that care, they will have to consider personal care with out of pocket cost vs. alf placement. Patient and his family would like a referral home with hospice. His daughter and son-in-law note that they would eventually like patient to be moved in with them to their home in [place], which is larger and would allow him plenty of space. They also note that they have a bathroom on every 4 so should he need to live 114, this could be easily accommodated for him. Patient was a little more reluctant to consider this, expressing a clear preference to remain as independent as possible in his own home and added that he felt his landlord would be willing to modify the bathroom for him. Currently patient's bathroom is a clawfoot tub which has been difficult for him to get in and out of. This is sedentary and limited his ability to do personal care and hygiene issues. We discussed the addition of home health with hospice would provide him with the need that could assist him with bathing on a regular basis through the week. They will also be able to help him navigate the stairs safely. At this time patient has returned to his baseline of room air and not requiring any supplemental oxygen. We spoke about and reviewed the nature of COPD: the ATS and ERS define COPD as a preventable and treatable disease state characterized by airflow limitation that is not fully reversible. The airflow limitation is usually progressive and associated with a chronic inflammatory response of the lungs to noxious particles or gases. COPD is incurable and will worsen over time. Sometimes when patients stop smoking, the progression will slow down, but all COPD over time will get worse. Medications become less effective and do not work as well; in general these patients experience a significant decline in QOL. Patients with COPD constitute a large group of symptomatic patients with a common, chronic, and generally progressive respiratory disorder. Recent studies indicate that patients in this group, on the whole, receive less palliative care in their terminal phase than patients with lung cancer. We discussed that Palliative care can begin when a patient becomes symptomatic and is usually concurrent with restorative and life-prolonging care. Palliative care is titrated, analogous to curative/restorative care, to meet the needs of the patient and family in accord with their preferences. We will help manage their symptoms and assist with goals of care discussions. Recommended patient be discharged home with hospice and that his overall goal and priority is to remain home and maximize his time with family. He does not want to continue returning to the hospital. He has been fairly consistent in therapy as he is willing to accept versus what he would not accept. He will ask about CODE STATUS which has been changed today. I also reviewed completion of the POLST form with him which can be done closer to discharge. Patient family elected discharge home with hospice. Care management will assist with this. Patient's family was invited them to come live with their home in [place]. He expressed some resistance to this and felt he would be fine on his own. I gently advised him that I thought it might be best for him to accept the offer of help and support from his family because a COPD progresses, his condition will decline, his weakness will increase, and his ability to care for his own needs are managed to dyspnea crisis will be severely impaired. Having a caregiver available to him who can readily assess his needs and assist with medication especially during crisis of symptoms such as dyspnea or anxiety, would be much more beneficial than to him being alone. I encouraged him to discuss this further as a family. Patient offered a compromise that for now perhaps he would consider going home with hospice to his own apartment and then over time if his condition worsens or things began to change would then perhaps transition to his daughter's home. I advised him specifically that due to the geographic range coverage of hospice is, there is a likelihood that they may have to transition to a new hospice agency when and if this moved occurred. I advised him that with the social sciences instructor with their home hospice agency currently would have to be the person that assist with the transfer to another agency closer to their home in [place]. They were specifically advised that the hospital would not facilitate the change in agencies at that point as he is no longer an inpatient. All questions were answered to their apparent satisfaction. They verbalized agreement with the plan as outlined above in this detailed meeting. (3) Dyspnea and respiratory abnormalities: Continue using liquid morphine as needed to relieve air hunger (4) Acute and chronic respiratory failure with hypoxia: (5) Pulmonary cachexia due to chronic obstructive pulmonary disease: We briefly talked about the potential benefit of pulmonary rehabilitation. Advised patient and family that pulmonary rehab, as an outpatient, could potentially offer benefit. I provided education that pulmonary rehabilitation is a program of education and exercise that helps you manage your breathing problem, increase your stamina (energy) and decrease your breathlessness. The education part of the program teaches you to be in charge of your breathing instead of your breathing being in charge of you. Pulmonary Rehabilitation Program helps people who have chronic pulmonary disease. The specialists in this program work with you to improve your health and reduce your risk of future pulmonary disease and medical complications. You will work with a multidisciplinary team including respiratory therapists, physical therapists, occupational therapists, social workers and dietitians to ensure you get exactly the care you need. Most people go through the comprehensive evaluation, educational and exercise components on an outpatient basis. The staff in the Pulmonary Rehabilitation Program helps you focus on several ways to improve your quality of life and health and reduce your risk of future pulmonary events, such as: Breathing and relaxation techniques, which can help you better cope with stressful situations Improving your physical activity habits Maximizing your energy level Improving your overall health and well-being Participation in the program may help you: Better understand your disease Develop methods to cope with your disease Develop your perception of well-being Decrease the number of times you go to the hospital The Pulmonary Rehabilitation Program may include: Education sessions discussing breathing techniques, disease processes, respiratory medications, oxygen therapy, exercise techniques Exercise reconditioning sessions Oxygen dosing A nutrition education session Energy conservation techniques An individualized session to go over results of tests, program recommendations, exercise prescription and any questions you may have Recommendations to physicians of any changes or additional tests deemed necessary, such as oxygen therapy, overnight oximetry and medication changes. (6) Influenza A: Currently under treatment. Patient has responded well to Tamiflu and is now returning to his baseline of room air. (7) COPD with emphysema: Plan As noted above, home with hospice. Shahrzad Do [facility] Clinical Director, Palliative Medicine History of Present Illness Reason for Consultation: "copd, needing morphine for WOB" Attending Physician: Flor Lim DO History of Present Illness Admitted 04/29/22 for SOB, found to be flu +, started on tamiflu + supportive care FERDINAND noted, poss due to low oral intake patient has adv COPD, this is felt to be end stage disease He was seen 05/02/22 by pulm med and it is noted he follows with Dr Rod in OP clinic: "Patient with essentially end-stage disease that is refractory to treatment. Agree with IV Solu-Medrol at this time. We will add vest therapy to help with mucociliary clearance. Maintain saturations of 88 to 92%. We will change his current inhaler regimen to long-acting nebulizers as the patient likely has a poor inspiratory capacity given his severe end-stage COPD. We will also place the patient on azithromycin for the immunomodulatory effects. Recommend transitioning to azithromycin every Wednesday, Wednesday and Wednesday upon discharge. We will add codeine and guaifenesin for the cough. He is a poor rehab candidate given his pulmonary cachexia and cardiomyopathy. Recommend consultation with palliative care and discussions of goals of care." he had a cardiac cath Jun 2018: Opening aortic pressure: 85/60 mmHg Closing aortic pressure: 76/53 mmHg Left ventricular pressure: 84 over 0 mmHg Left ventricular end-diastolic pressure: 5 mmHg Coronary angiography: Left main coronary artery was normal in size and caliber. It bifurcated normally into left anterior descending and left circumflex artery. No obstructive disease Left anterior descending: Left anterior descending was a large transapical vessel which produced a first medium size diagonal branch and 2 smaller diagonal branches. There is approximately 40-50% stenosis at the ostium of D1. No other obstructive disease noted Left circumflex artery: This was a nondominant vessel which produce a very large first OM branch and a smaller bifurcating second OM branch. Is no obstructive disease in this distribution Right coronary: This was a dominant vessel which was occluded in its midportion. The distal vessel filled via collaterals from the left-sided vessels. Patient is seen bedside together with his daughter and son-in-law. Together with Dr. Lim, we held a family meeting at the bedside which is detailed below. Allergies Allergy/AdvReac Type Severity Reaction Status Date / Time methylprednisolone Allergy Severe THROAT Verified 04/28/22 20:37 [From Solu-Medrol] CLOSES Penicillins Allergy Intermediate muscle Verified 04/28/22 20:37 spasms Home Medications Medication Instructions Recorded Confirmed Type aspirin 81 mg tablet,delayed 81 mg PO QAM 12/29/18 04/28/22 History release albuterol sulfate 90 mcg/actuation 2 puff inhalation Q6H PRN 08/18/21 04/28/22 Rx aerosol inhaler Shortness Of Breath Or Wheezing #18 grams lisinopril 20 mg tablet 20 mg PO DAILY #90 tabs 08/18/21 04/28/22 Rx metoprolol succinate 50 mg 50 mg PO QAM #90 tabs 08/18/21 04/28/22 Rx tablet,extended release 24 hr umeclidinium 62.5 mcg-vilanterol 1 inh inhalation Q24H #60 ea 02/13/22 04/28/22 Rx 25 mcg/actuation powdr for inhalation (Anoro Ellipta) Patient History Medical History (Updated 05/04/22 @ 12:43 by Shahrzad Do DNP) Advanced care planning/counseling discussion Cardiomyopathy FOLLOWS WITH DR. FOUNTAIN severely reduced LV function COPD exacerbation Coronary artery disease Chronically occluded right coronary artery, 05/2018 Current smoker on some days Degenerative disc disease Dyspnea and respiratory abnormalities Elevated troponin History of tobacco abuse Hyperlipidemia Left inguinal hernia Myocardial Infarction ? EVENT (OVER 30 YEARS AGO) Palliative care encounter Pulmonary cachexia due to chronic obstructive pulmonary disease Pulmonary nodule Surgical History History of colonoscopy History of herniorrhaphy RT INGUINAL History of tooth extraction Hx of elbow surgery RT ULNAR NERVE REPAIRED Hx of vasectomy S/P left inguinal hernia repair (02/15/19) Left Open Inguinal Hernia Repair Dr. 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 He is then and appears chronically ill. Cachexia is noted. He has an intermittent dry cough. Mild respiratory distress. Significant conversational dyspnea is noted with 3-4 word sentences. There is use of accessory muscles noted. Results & Data ([facility]) Vital Signs (Past 12 Hours) Vital Signs Temp Pulse Pulse Resp BP Pulse Ox O2 Del Method 05/04/22 08:00 82 05/04/22 08:00 Room Air 05/04/22 07:42 118 H 20 98 Room Air 05/04/22 07:09 36.7 C 88 19 104/59 L 94 Room Air 05/04/22 03:00 36.4 C L 86 20 125/80 95 Room Air 05/03/22 23:00 36.5 C 91 H 20 119/75 96 Room Air 05/03/22 22:58 81 Laboratory Results Labs and imaging reviewed Diagnostic Findings Labs and imaging reviewed PG Care Time/CCT Total # of Minutes Spent Total Time Spent: 75 Total Time Spent with Patient: Total time spent is greater than 50% in coordination of care (as documented) at patient's floor/unit and/or counseling patient: I spent 75 minutes overall addressing this case: 15 in medical data review/discussion with referring provider(s) and/or preparation for the visit 10 in direct interaction with the patient and/or family 35 Advance Care Planning/Goals of Care discussions as detailed above in note (must be >16min) 10 in subsequent review and synthesis of assessment and plan 5 in communicating with other providers regarding the patient's case: [] Prolonged Care Time Prolonged Care Time: Yes Critical Care Time: No Advanced Care Planning 31964 Advanced Care Planning Additional 30 [place] [address] Inpt Consult Level 5 Patient Type New History Comprehensive Exam Problem Focused Medical Decision Making Moderate Complexity Diagnoses Palliative care encounter Z51.5 Advanced care planning/counseling discussion Z71.89 Dyspnea and respiratory abnormalities R06.00; R06.89 Acute and chronic respiratory failure with hypoxia J96.21 Pulmonary cachexia due to chronic obstructive pulmonary disease J44.9; R64 Influenza A J10.1 COPD with emphysema J43.9 Additional Codes Prolonged Care Time - Prolonged Care Time: Yes ([id number]) Advanced Care Planning - 03510 Advanced Care Planning Additional 30 Min: 82153 Advanced Care Planning Additional 30 Min ([id number])
[2022-05-04] MEDS: guaiFENesin/CODEINE 100MG/10MG 5ML UDC PO PRN (15:45)
[2022-05-04] MEDS ORDERED: LORazepam 0.5 MG TAB PO PRN (19:15)
[2022-05-04] MEDS ORDERED: MoRPHine SULFATE 10 MG/0.5 ML UDP PO PRN (19:15)
[2022-05-05] MEDS: FORMOTEROL 20 MCG/2 ML VIAL INH SCH (07:12)
[2022-05-05] MEDS: BUDESONIDE 0.5 MG/2 ML VIAL (PULMICORT) NEB SCH (07:12)
[2022-05-05] MEDS: ALBUT/IPRATROP 3MG/0.5MG NEB 3 ML VIAL NEB SCH ×2 (07:13→10:57)
[2022-05-05] MEDS: guaiFENesin 600 MG TABCR PO SCH (09:21)
[2022-05-05] MEDS: HEPARIN SOD 5,000 UNIT/0.5 ML VIAL SQ SCH (09:21)
[2022-05-05] MEDS: predniSONE 20 MG TAB PO SCH (09:22)
[2022-05-05] MEDS: ATORVASTATIN 40 MG TAB PO SCH (09:22)
[2022-05-05] MEDS: AZITHROMYCIN 250 MG TAB PO SCH (09:22)
[2022-05-05] MEDS: METOPROLOL SUCC 50MG EXT REL TAB PO SCH (09:22)
[2022-05-05] MEDS: ASPIRIN 81 MG ECTAB PO SCH (09:23)
[2022-05-05] MEDS: ACETAMINOPHEN 325 MG TAB PO PRN (09:28)
[2022-05-05] MEDS: BENZONATATE 100 MG CAPSULE PO PRN (09:28)
--- NOTE | 2022-05-05 09:57 | Discharge Summary ---
Discharge Summary Date of Service May 05, 2022 Admission HPI Per Admitting Provider pt presents to ED with complaints of shortness of breath Patient is a 71-year-old male with a past medical history of hypertension, hyperlipidemia, CHF, COPD, CAD that presents to the ER for shortness of breath 4 days duration associated with a yellow productive cough. pt reports worsening of Shortness of breath but denies any chest pain. No nausea, vomiting, or diarrhea reported . no palpitations reported. Admission Exam Per Admitting Provider Constitutional:WD/WN, vitals as aboveEyes:PERRL, conjunctivae normal, anicteric scleraeRespiratory:few scattered rhonchi heardCardiovascular:RRR, no murmur, no edemaGastrointestinal (Abdomen):normal bowel sounds, soft, nontender, no hepatosplenomegalyMusculoskeletal:no cyanosis or clubbing, extremities motor strength 5/5Skin:no rashes, warm and dryNeurologic:PERRL, EOMI, accommodation nl, no face palsy, no dysarthria Principal Dx & Hospital Course #1 = Principal Diagnosis (1) Acute and chronic respiratory failure with hypoxia: Admitted for worsening SOB and URI, found to be influenza A POSITIVE. Treating as COPD exacerbation 2/2 influenza A infection in end-stage COPD patient. 05/02 with worsening of respiratory status overnight, CXR without evidence of PNA or pulmonary edema, also no evidence of such on CT PE protocol and no evidence of PE. 05/03 improvement in breathing off of oxygen (ABG much improved with O2 120s->70s, CO2 35, pH 7.46). Pulmonary consulted and appreciate recommendations: suspect presentation due to influenza A infection in patient with end-stage COPD. Palliative care consult placed. After family meeting with Palliative care, decision was made by patient and family for home hospice on discharge. Continue morphine PO q6h as needed for respiratory distress, with Ativan as needed for anxiety. Did also send in codeine cough syrup as patient found this very helpful for his cough. 2 step performed, did not require oxygen. Discussed that as his breathing worsens with progression of disease, that hospice can help him with oxygen needs. Prednisone 40mg daily x5 days to complete steroid course for COPD exacerbation. (2) Influenza A: see above (3) FERDINAND (acute kidney injury): FERDINAND to creatinine 1.8 on admission, has since resolved with creatinine stable at 1.3 on for last several days. Suspected to be due to poor po intake due to acute illness. Received IV fluids, since discontinued in favor of PO intake at home and hospice transition. (4) Elevated troponin: Troponin trend 0.095 -> 0.197 -> 0.155 without evidence of chest pain, no EKG changes suggestive ACS. Also with poor clearance of troponin given FERDINAND. (5) COPD with emphysema: see above (6) Pulmonary cachexia due to chronic obstructive pulmonary disease: Discussed adequate po calorie intake, pulmonary rehab. Patient will consider. Else see above. (7) COPD exacerbation: see above Plan home with home hospice. plan to move in with daughter and son in law for care support. Discharge Exam Constitutional + cachectic; no acute distress Respiratory lungs CTA no wheezes Cardiovascular RRR, no murmur, no edema Psychiatric Orientation: alert and oriented x 3 Affect: euthymic affect Updated Medication List Medication Instructions Recorded Confirmed Type albuterol sulfate 90 mcg/actuation 2 puff inhalation Q6H PRN 08/18/21 04/28/22 Rx aerosol inhaler Shortness Of Breath Or Wheezing #18 grams umeclidinium 62.5 mcg-vilanterol 1 inh inhalation Q24H #60 ea 02/13/22 04/28/22 Rx 25 mcg/actuation powdr for inhalation (Anoro Ellipta) codeine 10 mg-guaifenesin 100 mg/5 5 ml PO Q6H PRN cough 5 days #120 05/05/22 Rx mL oral liquid (Guaiatussin AC) mL lorazepam 0.5 mg tablet (Ativan) 0.5 mg PO BID PRN anxiety #28 tabs 05/05/22 Rx morphine 15 mg immediate release 7.5 mg PO Q6H PRN pain #14 tabs 05/05/22 Rx tablet prednisone 20 mg tablet 40 mg PO DAILY 5 days #10 tabs 05/05/22 Rx Hospital Stay Data Consultations 04/28/22 21:34 ED Decision to Admit Stat 05/02/22 12:27 Consult Pulmonology Routine 05/04/22 08:54 Consult Palliative Care Routine Diagnostic Imagining Performed 05/02/22 10:36 CT angio chest PE protocol Urgent Discharge Instructions Given to Patient (Per Discharging Provider) You were admitted to the hospital for evaluation of trouble breathing. You were found to have an influenza A infection. You were given influenza medication and steroids with some improvement in your breathing. We talked as a group with Palliative Care about hospice services when you go home, in order to provide support and help you stay in your home as long as possible and keep you comfortable. I sent morphine and Ativan medications for you to take as needed for breathing troubles, and you can also use your inhalers for this. Please see the instructions below for dosing of these medications, which were sent to [facility] in [place]. Please purchase a pill cutter for the morphine; the pills are small and should be broken in half for dosing. We also sent prednisone for a COPD exacerbation, you can start this (2 pills daily) for five days starting tomorrow. If you have any medical concerns, please contact your primary care doctor or the hospice agency. Total Time Total Time Spent Total Time Spent (In Minutes): 45 minutes Coding Level of Care Code HOSP INP/OBS DISCH >30 MIN Diagnoses Acute and chronic respiratory failure with hypoxia J96.21 Influenza A J10.1 FERDINAND (acute kidney injury) N17.9 Elevated troponin R77.8 COPD with emphysema J43.9 Pulmonary cachexia due to chronic obstructive pulmonary disease J44.9; R64 COPD exacerbation J44.1
--- NOTE | 2022-05-05 12:45 | Electrocardiogram Report ---
Test Reason : Blood Pressure : / mmHG Vent. Rate : 101 BPM Atrial Rate : 138 BPM P-R Int : 192 ms QRS Dur : 088 ms QT Int : 316 ms P-R-T Axes : 094 056 140 degrees QTc Int : 409 ms Sinus tachycardia with occasional Premature ventricular complexes Brief atrial tachycardia Left ventricular hypertrophy with repolarization abnormality Abnormal ECG When compared with ECG of 28-APR-2022 20:13, Premature atrial complexes are no longer Present T wave inversion more evident in Anterior leads Confirmed by Forest Alfredo ([id number]) on 05/05/2022 12:44:35 PM Referred By: REFERRED SELF Confirmed By:Forest Alfredo
== END 2022-05-05 15:27 | disposition hospice, home (50) | DRG 152 ==
LOC: ED 20:05 → SUATTDRO 04-29 00:34 → EDINP 04-29 00:34 → 4W 04-29 20:40